=== PATIENT | male | born 1960 | race Caucasian/White ===

== ENCOUNTER → 2016-07-26 | Outpatient (CLI) | payer BC ==
[2016-07-26 13:43] LABS: Blood Urea Nitrogen 14 mg/dL (9-20); Non-African American GFR(MDRD) >60 (>60 ml/min/1.73 sqM)
== END | disposition home or self-care (01) ==
LOC: LABWHC1 13:09
PROVIDERS: ATTEND Psychiatry & Neurology Neurology
DX: M54.12 Radiculopathy, cervical region (principal)
CPT/HCPCS: 36415; 82565; 84520

== ENCOUNTER → 2016-07-31 | Outpatient (CLI) | payer BC ==
--- NOTE | 2016-07-31 15:59 | XR ---
EXAMINATION TYPE: XR orbit detect foreign body DATE OF EXAM: 07/31/2016 3:37 PM COMPARISON: NONE HISTORY: foreign body penetrating wound of bilateral orbits H05.53 TECHNIQUE: 3 views of the orbits are submitted. FINDINGS: There is no evidence for radiopaque foreign body. Paranasal sinuses are clear. IMPRESSION: The patient is cleared for MRI.
== END | disposition home or self-care (01) ==
LOC: RADXRMAIN 15:11
PROVIDERS: ATTEND Psychiatry & Neurology Neurology
DX: H05.53 Retained (old) foreign body following penetrating wound of bilateral orbits (principal)
CPT/HCPCS: 70030

== ENCOUNTER → 2016-08-01 | Outpatient (CLI) | payer BC ==
--- NOTE | 2016-08-02 08:13 | MR ---
EXAMINATION TYPE: MR cervical spine wo/w con DATE OF EXAM: 08/01/2016 6:33 PM COMPARISON: NONE HISTORY: picky feeling in both arms with numbness TECHNIQUE: Multiplanar, multisequence images of the cervical spine were acquired utilizing 20 mL intravenous Mul tiHance gadolinium contrast. Diffusion weighted imaging was performed. C2-C3: Mild facet arthropathy. No canal stenosis or disc herniation. Neural foramina patent C3-C4: Small focal central disc bulge. Mild facet arthropathy. No canal stenosis. Mild left foraminal encroachment with mild left-sided uncovertebral joint hypertrophy. C4-C5: Suggestion of annular tear and very mild central disc bulge. No canal stenosis or foraminal en croachment. C5-C6: Moderate-sized right paracentral and lateral disc herniation. There is compression of the spin al cord anteriorly are to the right. Moderate right-sided foraminal encroachment. C6-C7: Focal small central disc herniation with no contact of the spinal cord. Mild effacement of the lin sac. No foraminal encroachment. C7-T1: No evidence for degenerative disc disease. No disc bulge/herniation or protrusion. No Canal stenosis. Foramina are patent bilaterally. Cervical segments are intact. There is normal alignment. Cervical spinal cord is of normal signal. Craniovertebral junction relationships are within normal limits. No abnormal enhancement. IMPRESSION: 1. Moderate-sized right paracentral disc herniation extending laterally to the right with moderate ri ght-sided foraminal encroachment. There is anterior spinal cord compression on the right. 2. Focal small central disc herniation C6-C7 with mild effacement of thecal sac. No spinal cord conta ct or foraminal encroachment. 3. Remaining levels demonstrate multilevel disc bulging with no canal stenosis.
== END | disposition home or self-care (01) ==
LOC: RADMRIMAIN 17:29
PROVIDERS: ATTEND Psychiatry & Neurology Neurology
DX: M50.11 Cervical disc disorder with radiculopathy, high cervical region (principal)
CPT/HCPCS: 72156; A9577

== ENCOUNTER 2016-10-03 06:36 | Emergency (ER) | payer BC ==
[2016-10-03] MEDS ORDERED: methylPREDNISolone SOD SUCCI 125 MG/2 ML VIAL IV STA (06:43)
[2016-10-03] MEDS ORDERED: SODIUM CHLORIDE 0.9% 1,000 ML IV STA (06:43)
[2016-10-03] MEDS ORDERED: diphenhydrAMINE 50 MG/ML 1 ML VIAL IVP STA (06:43)
[2016-10-03] MEDS ORDERED: FAMOTIDINE 20 MG/2 ML VIAL IV STA ×2 (06:43→07:40)
--- NOTE | 2016-10-03 06:44 | ED ---
General Adult HPI - General Source: RN notes reviewed, old records reviewed <Champ Romo - Last Filed: 10/03/16 06:43> <Benito Hogan - Last Filed: 10/03/16 08:20> - General Stated complaint: allergic reaction Time Seen by Provider: 10/03/16 06:43 - History of Present Illness Initial comments: This is a 56-year-old male here for evaluation of ALLERGIC reaction. Patient has no prior history of similar ALLERGIC reaction. Does have medication ALLERGY to penicillins, fidgeted Bactrim last night, states since then he has been having some rash itching and hives. He will, scratchy throat and will symptoms of shortness of breath today. Patient does not feel weak or dizzy is not feeling is not [place] (Champ Romo) - Related Data Home Medications Medication Instructions Recorded Confirmed Multivitamins, Thera [Multivitamin] 1 tab PO DAILY 08/15/15 10/03/16 Mv-Min/Vit C/Glu/Rebekah HCl/Hc124 1 tab PO QAM 08/15/15 10/03/16 [Airborne Tablet Chewable] Cyclobenzaprine [Flexeril] 10 mg PO TID PRN 10/03/16 10/03/16 Hydrochlorothiazide [Hydrodiuril] 12.5 mg PO DAILY 10/03/16 10/03/16 Previous Rx's Medication Instructions Recorded Azithromycin [Zithromax Z-pack] 250 mg PO DIRECTED #6 tab 10/03/16 predniSONE 20 mg PO BID #10 tab 10/03/16 Allergies Allergy/AdvReac Type Severity Reaction Status Date / Time meperidine HCl [From Demerol] Allergy Intermediate Rash/Hives Verified 10/03/16 06:46 Penicillins Allergy Intermediate Rash/Hives Verified 10/03/16 06:46 Sulfa (Sulfonamide Allergy Rash/Hives Verified 10/03/16 06:48 Antibiotics) sulfamethoxazole Allergy Rash/Hives Verified 10/03/16 06:47 [From Bactrim] trimethoprim [From Bactrim] Allergy Rash/Hives Verified 10/03/16 06:47 Review of Systems ROS Other: All systems not noted in ROS Statement are negative. <Champ Romo - Last Filed: 10/03/16 06:43> ROS Other: All systems not noted in ROS Statement are negative. <Benito Hogan - Last Filed: 10/03/16 08:20> ROS Statement: Those systems with pertinent positive or pertinent negative responses have been documented in the HPI. Past Medical History Additional Past Medical History / Comment(s): approx 2009 clean heart cath, vertigo History of Any Multi-Drug Resistant Organisms: None Reported Past Surgical History: Adenoidectomy, Appendectomy, Cholecystectomy, Heart Catheterization, Orthopedic Surgery, Tonsillectomy Additional Past Surgical History / Comment(s): right shoulder Past Anesthesia/Blood Transfusion Reactions: No Reported Reaction Past Psychological History: No Psychological Hx Reported Smoking Status: Former smoker Past Alcohol Use History: Rare Additional Past Alcohol Use History / Comment(s): started 1976 stopped07/17/2015/2 ppd Past Drug Use History: None Reported - Past Family History Mother Family Medical History: Coronary Artery Disease (CAD), Diabetes Mellitus Father Family Medical History: Coronary Artery Disease (CAD) Additional Family Medical History / Comment(s): "lower aorta bust" <Champ Romo - Last Filed: 10/03/16 06:43> General Exam General appearance: alert, in no apparent distress Head exam: Present: atraumatic, normocephalic, normal inspection Eye exam: Present: normal appearance, PERRL, EOMI. Absent: scleral icterus, conjunctival injection, periorbital swelling ENT exam: Present: normal exam, mucous membranes moist Neck exam: Present: normal inspection. Absent: tenderness, meningismus, lymphadenopathy Respiratory exam: Present: normal lung sounds bilaterally. Absent: respiratory distress, wheezes, rales, rhonchi, stridor Cardiovascular Exam: Present: regular rate, normal rhythm, normal heart sounds. Absent: systolic murmur, diastolic murmur, rubs, gallop, clicks GI/Abdominal exam: Present: soft, normal bowel sounds. Absent: distended, tenderness, guarding, rebound, rigid Extremities exam: Present: normal inspection, full ROM, normal capillary refill. Absent: tenderness, pedal edema, joint swelling, calf tenderness Back exam: Present: normal inspection Neurological exam: Present: alert, oriented X3, CN II-XII intact Psychiatric exam: Present: normal affect, normal mood Skin exam: Present: warm, dry, intact, normal color. Absent: rash <Champ Romo - Last Filed: 10/03/16 06:43> Medical Decision Making <Champ Romo - Last Filed: 10/03/16 06:43> <Benito Hogan - Last Filed: 10/03/16 08:20> - Medical Decision Making I did reevaluate patient several occasions he is feeling improved he still has some rash and blotchiness but the burning has resolved. The patient is in satisfactory condition for discharge this time he'll be discharged on appropriate medications he does have pets at home he will get some Benadryl be placed also on prednisone for a short course he will be switched to Zithromax for an antibiotic. He is a follow-up with his doctor as indicated and return when necessary (Benito Hogan) Disposition <Champ Romo - Last Filed: 10/03/16 06:43> <Benito Hogan - Last Filed: 10/03/16 08:20> Clinical Impression: Allergic reaction, Adverse reaction to drug Disposition: HOME SELF-CARE Condition: Good Instructions: Allergies (ED), Adverse Drug Reaction (ED) Additional Instructions: [id number] Benadryl 25 mg every 6 hours when necessary, Pepcid 20 mg twice a day 5 days, cool compresses, avoid heat Prescriptions: Azithromycin [Zithromax Z-pack] 250 mg PO DIRECTED #6 tab predniSONE 20 mg PO BID #10 tab
[2016-10-03 07:35] VITALS: RESP 16
[2016-10-03 08:29] VITALS: BP 170/92; PULSE 78; TEMP 97.8
== END 2016-10-03 08:30 | disposition home or self-care (01) ==
LOC: EC 06:36
DX: L27.0 Generalized skin eruption due to drugs and medicaments taken internally (principal); T37.0X5A Adverse effect of sulfonamides, initial encounter; Z88.0 Allergy status to penicillin; Z88.2 Allergy status to sulfonamides; Z88.5 Allergy status to narcotic agent; Z87.891 Personal history of nicotine dependence; Z79.899 Other long term (current) drug therapy
CPT/HCPCS: 99283; 96374; 96375 ×2; 96376; 96361; J1200; J2930

== ENCOUNTER 2017-07-03 19:31 | Emergency (ER) | payer BC ==
[2017-07-03 19:37] VITALS: BP 167/101; PULSE 103; RESP 18; TEMP 97.8
--- NOTE | 2017-07-03 20:41 | ED ---
Wound/Laceration HPI - General Chief Complaint: Wound/Laceration Stated Complaint: finger lac Time Seen by Provider: 07/03/17 19:48 Source: patient, RN notes reviewed Mode of arrival: ambulatory Limitations: no limitations - History of Present Illness Initial Comments: This is a 56-year-old male who presents to the emergency department with chief complaint of finger laceration. Patient states that at approximately half an hour prior to arrival he lacerated his left index finger on a hunting knife. He states he reached into his hunting bag and when he pulled his hand out he realized he had cut his finger on the knife. Patient states that the laceration was flap-like and that he could not get the bleeding to stop so he presented to the emergency department to receive sutures. Patient states he was made up-to-date with his tetanus vaccination approximately 3 weeks ago at his primary care's office. Denies any other injuries. Denies any concerns for foreign body. Denies fever, chills, chest pain, shortness of breath, abdominal pain, nausea or vomiting, numbness or tingling, headache or vision changes. - Related Data Home Medications Medication Instructions Recorded Confirmed Multivitamins, Thera [Multivitamin] 1 tab PO DAILY 08/15/15 10/03/16 Mv-Min/Vit C/Glu/Rebekah HCl/Hc124 1 tab PO QAM 08/15/15 10/03/16 [Airborne Tablet Chewable] Cyclobenzaprine [Flexeril] 10 mg PO TID PRN 10/03/16 10/03/16 Hydrochlorothiazide [Hydrodiuril] 12.5 mg PO DAILY 10/03/16 10/03/16 Previous Rx's Medication Instructions Recorded Azithromycin [Zithromax Z-pack] 250 mg PO DIRECTED #6 tab 10/03/16 predniSONE 20 mg PO BID #10 tab 10/03/16 Cephalexin [Keflex] 500 mg PO Q12HR #20 cap 07/03/17 Allergies Allergy/AdvReac Type Severity Reaction Status Date / Time meperidine HCl [From Demerol] Allergy Intermediate Rash/Hives Verified 07/03/17 19:36 Penicillins Allergy Intermediate Rash/Hives Verified 07/03/17 19:36 Sulfa (Sulfonamide Allergy Rash/Hives Verified 07/03/17 19:36 Antibiotics) sulfamethoxazole Allergy Rash/Hives Verified 07/03/17 19:36 [From Bactrim] trimethoprim [From Bactrim] Allergy Rash/Hives Verified 07/03/17 19:36 Review of Systems ROS Statement: Those systems with pertinent positive or pertinent negative responses have been documented in the HPI. ROS Other: All systems not noted in ROS Statement are negative. Past Medical History Additional Past Medical History / Comment(s): approx 2009 clean heart cath, vertigo History of Any Multi-Drug Resistant Organisms: None Reported Past Surgical History: Adenoidectomy, Appendectomy, Cholecystectomy, Heart Catheterization, Orthopedic Surgery, Tonsillectomy Additional Past Surgical History / Comment(s): right shoulder Past Anesthesia/Blood Transfusion Reactions: No Reported Reaction Past Psychological History: No Psychological Hx Reported Smoking Status: Former smoker Past Alcohol Use History: Rare Past Drug Use History: None Reported - Past Family History Mother Family Medical History: Coronary Artery Disease (CAD), Diabetes Mellitus Father Family Medical History: Coronary Artery Disease (CAD) Additional Family Medical History / Comment(s): "lower aorta bust" General Exam - General Exam Comments Initial Comments: General: Awake and alert, well-developed; in no apparent distress. HEENT: Head atraumatic, normocephalic. Pupils are equal, round and reactive to light. Extraocular movements intact. Neck: Supple. Normal ROM. Cardiovascular: Regular rate and rhythm. No murmurs, rubs or gallops. Chest symmetrical. Respiratory: Lungs clear to auscultation bilaterally. No wheezes, rales or rhonchi. Normal respiratory effort with no use of accessory muscles. Musculoskeletal: Normal active range of motion of left index finger. Sensation is intact. Radial pulses are 2+ equal and palpable bilaterally. Skin: [place], warm and dry. There is an approximately 2.0 cm flap-like laceration at distal left index finger. Neurological: Alert and oriented x3. CN II-XII grossly intact. Speech is fluent and answers are appropriate. No focal neuro deficits. Psychiatric: Normal mood and affect. No overt signs of depression or anxiety noted. Limitations: no limitations Course Vital Signs 07/03/17 19:34 Temperature 97.8 F Pulse Rate 103 H Respiratory 18 Rate Blood Pressure 167/101 O2 Sat by Pulse 98 Oximetry Procedures - Laceration Laceration #1 Consent Obtained: verbal consent Indication: laceration Site: hand (distal left index finger) Size (cm): 2 Description: flap Depth: simple, single layer Anesthetic Used: lidocaine 1% Anesthesia Technique: nerve block Amount (mls): 2 Pre-repair: wound explored, irrigated extensively, deep structures intact Type of Sutures: nylon Size of Sutures: 5-0 Number of Sutures: 5 Technique: simple, interrupted Patient Tolerated Procedure: well, no complications Medical Decision Making - Medical Decision Making This is a 56-year-old male who presents to the emergency department for evaluation of a left index finger laceration. The wound was extensively irrigated and explored. No evidence for foreign body. 5 sutures were placed and patient tolerated well without complication. He is neurovascularly intact and has normal range of motion of the digit. Patient will be discharged home with recommendation to have sutures removed in 10-14 days. He will be provided a prescription for Keflex. Patient is in agreement and voices understanding. All questions were answered. Disposition Clinical Impression: Finger laceration Disposition: HOME SELF-CARE Condition: Good Instructions: Finger Laceration (ED) Additional Instructions: Please have sutures removed in 10-14 days. Please take medications as prescribed. Please follow up with primary care provider within 1-2 days. Return to emergency department if symptoms should worsen or any concerns arise. Prescriptions: Cephalexin [Keflex] 500 mg PO Q12HR #20 cap Referrals: Edison Mosqueda MD [Primary Care Provider] - 1-2 days Time of Disposition: 20:41
== END 2017-07-03 20:44 | disposition home or self-care (01) ==
LOC: EC 19:31
DX: S61.211A Laceration without foreign body of left index finger without damage to nail, initial encounter (principal); Z87.891 Personal history of nicotine dependence; Z79.899 Other long term (current) drug therapy; Z88.0 Allergy status to penicillin; Z88.1 Allergy status to other antibiotic agents; Z88.2 Allergy status to sulfonamides; Z88.5 Allergy status to narcotic agent; Z88.8 Allergy status to other drugs, medicaments and biological substances; W26.0XXA Contact with knife, initial encounter; Y93.89 Activity, other specified
CPT/HCPCS: 12001; 99282

== ENCOUNTER → 2020-07-17 | Outpatient (CLI) | payer BC ==
[2020-07-17 08:57] LABS: Basophils % (A) 1 %; Eosinophils # (A) 0.1 k/uL (0-0.7); Eosinophils % (A) 1 %; HCT 50.3 % (39.0-53.0); HGB 17.3 gm/dL (13.0-17.5); Lymphocytes # (A) 1.9 k/uL (1.0-4.8); Lymphocytes % (A) 26 %; MCH 32.7 pg (25.0-35.0); MCHC 34.5 g/dL (31.0-37.0); MCV 94.8 fL (80.0-100.0); Mean Platelet Volume 6.6; Monocytes # (A) 0.6 k/uL (0-1.0); Monocytes % (A) 8 %; Neutrophils # (A) 4.5 k/uL (1.3-7.7); Neutrophils % (A) 62 %; Platelet Count 244 k/uL (150-450); RBC 5.31 m/uL (4.30-5.90); RDW 12.2 % (11.5-15.5); WBC 7.2 k/uL (3.8-10.6)
[2020-07-17 09:05] LABS: Appearance,Urine Clear (Clear); Bilirubin,Urine Negative (Negative); Blood,Urine Negative (Negative); Color,Urine Yellow; Glucose,Urine (UA) Negative (Negative); Ketones,Urine Negative (Negative); Leukocyte Esterase,Urine Negative (Negative); Nitrite,Urine Negative (Negative); Protein,Urine Negative (Negative); Specific Gravity,Urine 1.014 (1.001-1.035); Urobilinogen,Urine <2.0 mg/dL (<2.0)
[2020-07-17 15:52] LABS: Albumin 4.7 g/dL (3.80-4.90); Albumin/Globulin Ratio 2.47 (1.60-3.17); Anion Gap 6.8 mmol/L (4.00-12.00); BUN/Creat Ratio 15.56 Ratio (12.00-20.00); Calcium 9.4 mg/dL (8.7-10.3); Carbon Dioxide 29.2 mmol/L (21.6-31.8); Chol/HDL Ratio 4.39; Globulin 1.9 g/dL (1.6-3.3); LDL Cholesterol,Calculated 110.8 mg/dL (0.0-131.0); Non-African American GFR(CKD) 93.2 (60.0-200.0); Potassium 4.9 mmol/L (3.5-5.5); Total Bilirubin 0.5 mg/dL (0.3-1.2); Total Protein 6.6 g/dL (6.2-8.2); VLDL Calculation 11.2 mg/dL (5.00-40.00)
[2020-07-17 16:42] LABS: PSA Annual Screen 0.3 ng/mL (0.0-4.0)
== END | disposition home or self-care (01) ==
LOC: LABWHC1 07:57
PROVIDERS: ATTEND Internal Medicine
DX: I10 Essential (primary) hypertension (principal); E55.9 Vitamin D deficiency, unspecified; Z12.5 Encounter for screening for malignant neoplasm of prostate
CPT/HCPCS: 80061; 80053; 85025; 81003; 82306; 36415; G0103

== ENCOUNTER 2021-01-17 21:09 | Emergency (ER) | payer BC ==
[2021-01-17 21:15] VITALS: TEMP 97.5
[2021-01-17] MEDS ORDERED: MORPHINE SULFATE 4 MG/ML SYRINGE IV STA (21:31)
--- NOTE | 2021-01-17 21:55 | ED ---
Abdominal Pain HPI - General Chief Complaint: Abdominal Pain Stated Complaint: cardiac symptoms Time Seen by Provider: 01/17/21 21:30 Source: patient Mode of arrival: ambulatory Limitations: no limitations - History of Present Illness Initial Comments: 's patient is a 60-year-old man who presents to be evaluated for epigastric abdominal pain. The patient notes that he was having some intermittent episodes going back a couple of weeks, but the symptoms became more constant for approximately 3 days now. The symptoms do radiate to the back. He has not noted worsening or relieving factors. It does feel like a an aching or pressure sensation. MD Complaint: abdominal pain -: days(s) Location: epigastric Radiation: back Migration to: no migration Severity: moderate Quality: aching, other (Pressure) Consistency: constant Improves With: nothing Worsens With: nothing - Related Data Home Medications Medication Instructions Recorded Confirmed Multivitamins, Thera [Multivitamin] 1 tab PO DAILY 08/15/15 10/03/16 Mv-Min/Vit C/Glu/Rebekah HCl/Hc124 1 tab PO QAM 08/15/15 10/03/16 [Airborne Tablet Chewable] Cyclobenzaprine [Flexeril] 10 mg PO TID PRN 10/03/16 10/03/16 hydroCHLOROthiazide [Hydrodiuril] 12.5 mg PO DAILY 10/03/16 10/03/16 Previous Rx's Medication Instructions Recorded Azithromycin [Zithromax Z-pack] 250 mg PO DIRECTED #6 tab 10/03/16 predniSONE [Deltasone] 20 mg PO BID #10 tab 10/03/16 Cephalexin [Keflex] 500 mg PO Q12HR #20 cap 07/03/17 Allergies Allergy/AdvReac Type Severity Reaction Status Date / Time meperidine HCl [From Demerol] Allergy Intermediate Rash/Hives Verified 07/03/17 19:36 Penicillins Allergy Intermediate Rash/Hives Verified 07/03/17 19:36 Sulfa (Sulfonamide Allergy Rash/Hives Verified 07/03/17 19:36 Antibiotics) sulfamethoxazole Allergy Rash/Hives Verified 07/03/17 19:36 [From Bactrim] trimethoprim [From Bactrim] Allergy Rash/Hives Verified 07/03/17 19:36 Review of Systems ROS Statement: Those systems with pertinent positive or pertinent negative responses have been documented in the HPI. ROS Other: All systems not noted in ROS Statement are negative. Constitutional: Denies: fever, chills Respiratory: Denies: cough, dyspnea Cardiovascular: Denies: chest pain, palpitations, orthopnea, edema, syncope Gastrointestinal: Reports: abdominal pain. Denies: nausea, vomiting, diarrhea, constipation, melena, hematochezia Genitourinary: Denies: dysuria, hematuria Musculoskeletal: Denies: back pain Skin: Denies: rash Neurological: Denies: headache, weakness, numbness Past Medical History Past Medical History: Hypertension Additional Past Medical History / Comment(s): approx 2009 clean heart cath, vertigo History of Any Multi-Drug Resistant Organisms: None Reported Past Surgical History: Adenoidectomy, Appendectomy, Cholecystectomy, Heart Catheterization, Hernia Repair, Orthopedic Surgery, Tonsillectomy Additional Past Surgical History / Comment(s): right shoulder Past Anesthesia/Blood Transfusion Reactions: No Reported Reaction Past Psychological History: No Psychological Hx Reported Smoking Status: Former smoker Past Alcohol Use History: Rare Past Drug Use History: None Reported - Past Family History Mother Family Medical History: Coronary Artery Disease (CAD), Diabetes Mellitus Father Family Medical History: Coronary Artery Disease (CAD) Additional Family Medical History / Comment(s): "lower aorta bust" General Exam Limitations: no limitations General appearance: alert, in no apparent distress Head exam: Present: atraumatic, normocephalic Eye exam: Present: normal appearance. Absent: scleral icterus, conjunctival injection Neck exam: Present: normal inspection Respiratory exam: Present: normal lung sounds bilaterally. Absent: respiratory distress, wheezes, rales, rhonchi, stridor Cardiovascular Exam: Present: regular rate, normal rhythm, normal heart sounds. Absent: systolic murmur, diastolic murmur, rubs, gallop GI/Abdominal exam: Present: soft. Absent: distended, tenderness, guarding, rebound, rigid, mass, pulsatile mass, hernia Extremities exam: Present: normal inspection, normal capillary refill. Absent: pedal edema, calf tenderness Back exam: Present: normal inspection. Absent: CVA tenderness (R), CVA tenderness (L) Neurological exam: Present: alert Skin exam: Present: warm, dry, intact, normal color. Absent: rash Course Vital Signs 01/17/21 01/17/21 01/17/21 21:10 21:43 22:30 Temperature 97.5 F L Pulse Rate 79 75 64 Respiratory 20 17 19 Rate Blood Pressure 158/89 155/97 144/85 O2 Sat by Pulse 95 93 L 93 L Oximetry 01/17/21 23:00 Temperature Pulse Rate 73 Respiratory 18 Rate Blood Pressure 139/89 O2 Sat by Pulse 96 Oximetry Medical Decision Making - Lab Data Result diagrams: 01/17/21 21:49 01/17/21 21:49 Lab Results 01/17/21 01/17/21 01/17/21 Range/Units 21:40 21:49 21:49 WBC 9.7 (3.8-10.6) k/uL RBC 4.75 (4.30-5.90) m/uL Hgb 15.5 (13.0-17.5) gm/dL Hct 44.4 (39.0-53.0) % MCV 93.4 (80.0-100.0) fL MCH 32.6 (25.0-35.0) pg MCHC 34.9 (31.0-37.0) g/dL RDW 12.3 (11.5-15.5) % Plt Count 243 (150-450) k/uL MPV 6.8 Neutrophils % 61 % Lymphocytes % 29 % Monocytes % 6 % Eosinophils % 2 % Basophils % 0 % Neutrophils # 5.9 (1.3-7.7) k/uL Lymphocytes # 2.8 (1.0-4.8) k/uL Monocytes # 0.6 (0-1.0) k/uL Eosinophils # 0.2 (0-0.7) k/uL Basophils # 0.0 (0-0.2) k/uL D-Dimer 0.21 (<0.60) mg/L FEU Sodium (137-145) mmol/L Potassium (3.5-5.1) mmol/L Chloride (98-107) mmol/L Carbon Dioxide (22-30) mmol/L Anion Gap mmol/L BUN (9-20) mg/dL Creatinine (0.66-1.25) mg/dL Est GFR (CKD-EPI)AfAm (>60 ml/min/1.73 sqM) Est GFR (CKD-EPI)NonAf (>60 ml/min/1.73 sqM) Glucose (74-99) mg/dL Plasma Lactic Acid Neeraj (0.7-2.0) mmol/L Calcium (8.4-10.2) mg/dL Total Bilirubin (0.2-1.3) mg/dL AST (17-59) U/L ALT (4-49) U/L Alkaline Phosphatase (38-126) U/L Troponin I (0.000-0.034) ng/mL Total Protein (6.3-8.2) g/dL Albumin (3.5-5.0) g/dL Amylase (30-110) U/L Lipase (23-300) U/L Urine Color Urine Appearance (Clear) Urine pH (5.0-8.0) Ur Specific [place] (1.001-1.035) Urine Protein (Negative) Urine Glucose (UA) (Negative) Urine Ketones (Negative) Urine Blood (Negative) Urine Nitrite (Negative) Urine Bilirubin (Negative) Urine Urobilinogen (<2.0) mg/dL Ur Leukocyte Esterase (Negative) Blood Type Blood Type Confirm O Positive Blood Type Recheck Bld Type Recheck Status Antibody Screen Spec Expiration Date 01/17/21 01/17/21 01/17/21 Range/Units 21:49 21:49 21:49 WBC (3.8-10.6) k/uL RBC (4.30-5.90) m/uL Hgb (13.0-17.5) gm/dL Hct (39.0-53.0) % MCV (80.0-100.0) fL MCH (25.0-35.0) pg MCHC (31.0-37.0) g/dL RDW (11.5-15.5) % Plt Count (150-450) k/uL MPV Neutrophils % % Lymphocytes % % Monocytes % % Eosinophils % % Basophils % % Neutrophils # (1.3-7.7) k/uL Lymphocytes # (1.0-4.8) k/uL Monocytes # (0-1.0) k/uL Eosinophils # (0-0.7) k/uL Basophils # (0-0.2) k/uL D-Dimer (<0.60) mg/L FEU Sodium 138 (137-145) mmol/L Potassium 3.9 (3.5-5.1) mmol/L Chloride 102 (98-107) mmol/L Carbon Dioxide 29 (22-30) mmol/L Anion Gap 7 mmol/L BUN 20 (9-20) mg/dL Creatinine 0.80 (0.66-1.25) mg/dL Est GFR (CKD-EPI)AfAm >90 (>60 ml/min/1.73 sqM) Est GFR (CKD-EPI)NonAf >90 (>60 ml/min/1.73 sqM) Glucose 103 H (74-99) mg/dL Plasma Lactic Acid Neeraj 0.9 (0.7-2.0) mmol/L Calcium 9.6 (8.4-10.2) mg/dL Total Bilirubin 0.4 (0.2-1.3) mg/dL AST 34 (17-59) U/L ALT 33 (4-49) U/L Alkaline Phosphatase 60 (38-126) U/L Troponin I (0.000-0.034) ng/mL Total Protein 6.7 (6.3-8.2) g/dL Albumin 4.2 (3.5-5.0) g/dL Amylase 92 (30-110) U/L Lipase 119 (23-300) U/L Urine Color Light Yellow Urine Appearance Clear (Clear) Urine pH 7.0 (5.0-8.0) Ur Specific [place] 1.005 (1.001-1.035) Urine Protein Negative (Negative) Urine Glucose (UA) Negative (Negative) Urine Ketones Negative (Negative) Urine Blood Negative (Negative) Urine Nitrite Negative (Negative) Urine Bilirubin Negative (Negative) Urine Urobilinogen <2.0 (<2.0) mg/dL Ur Leukocyte Esterase Negative (Negative) Blood Type Blood Type Confirm Blood Type Recheck Bld Type Recheck Status Antibody Screen Spec Expiration Date 01/17/21 01/17/21 Range/Units 21:51 22:10 WBC (3.8-10.6) k/uL RBC (4.30-5.90) m/uL Hgb (13.0-17.5) gm/dL Hct (39.0-53.0) % MCV (80.0-100.0) fL MCH (25.0-35.0) pg MCHC (31.0-37.0) g/dL RDW (11.5-15.5) % Plt Count (150-450) k/uL MPV Neutrophils % % Lymphocytes % % Monocytes % % Eosinophils % % Basophils % % Neutrophils # (1.3-7.7) k/uL Lymphocytes # (1.0-4.8) k/uL Monocytes # (0-1.0) k/uL Eosinophils # (0-0.7) k/uL Basophils # (0-0.2) k/uL D-Dimer (<0.60) mg/L FEU Sodium (137-145) mmol/L Potassium (3.5-5.1) mmol/L Chloride (98-107) mmol/L Carbon Dioxide (22-30) mmol/L Anion Gap mmol/L BUN (9-20) mg/dL Creatinine (0.66-1.25) mg/dL Est GFR (CKD-EPI)AfAm (>60 ml/min/1.73 sqM) Est GFR (CKD-EPI)NonAf (>60 ml/min/1.73 sqM) Glucose (74-99) mg/dL Plasma Lactic Acid Neeraj (0.7-2.0) mmol/L Calcium (8.4-10.2) mg/dL Total Bilirubin (0.2-1.3) mg/dL AST (17-59) U/L ALT (4-49) U/L Alkaline Phosphatase (38-126) U/L Troponin I <0.012 (0.000-0.034) ng/mL Total Protein (6.3-8.2) g/dL Albumin (3.5-5.0) g/dL Amylase (30-110) U/L Lipase (23-300) U/L Urine Color Urine Appearance (Clear) Urine pH (5.0-8.0) Ur Specific [place] (1.001-1.035) Urine Protein (Negative) Urine Glucose (UA) (Negative) Urine Ketones (Negative) Urine Blood (Negative) Urine Nitrite (Negative) Urine Bilirubin (Negative) Urine Urobilinogen (<2.0) mg/dL Ur Leukocyte Esterase (Negative) Blood Type O Positive Blood Type Confirm Blood Type Recheck No Previous Record Bld Type Recheck Status CABO Indicated Antibody Screen NEGATIVE Spec Expiration Date 01/20/20212350 - EKG Data -: EKG Interpreted by Oh EKG shows normal: sinus rhythm, axis (Normal), intervals (Normal), QRS complexes (Normal), ST-T waves (Normal) Rate: normal (Rate 68 bpm) Interpretation: normal EKG Disposition Clinical Impression: Abdominal pain Disposition: HOME SELF-CARE Condition: Good Instructions (If sedation given, give patient instructions): Abdominal Pain (ED) Is patient prescribed a controlled substance at d/c from ED?: No Referrals: Shannon Ospina MD [Primary Care Provider] - 1-2 days
[2021-01-17 22:03] LABS: Basophils % (A) 0 %; Eosinophils # (A) 0.2 k/uL (0-0.7); Eosinophils % (A) 2 %; HCT 44.4 % (39.0-53.0); HGB 15.5 gm/dL (13.0-17.5); Lymphocytes # (A) 2.8 k/uL (1.0-4.8); Lymphocytes % (A) 29 %; MCH 32.6 pg (25.0-35.0); MCHC 34.9 g/dL (31.0-37.0); MCV 93.4 fL (80.0-100.0); Mean Platelet Volume 6.8; Monocytes # (A) 0.6 k/uL (0-1.0); Monocytes % (A) 6 %; Neutrophils # (A) 5.9 k/uL (1.3-7.7); Neutrophils % (A) 61 %; Platelet Count 243 k/uL (150-450); RBC 4.75 m/uL (4.30-5.90); RDW 12.3 % (11.5-15.5); WBC 9.7 k/uL (3.8-10.6)
[2021-01-17 22:16] LABS: ALT 33 U/L (4-49); AST 34 U/L (17-59); African American GFR (CKD) >90 (>60 ml/min/1.73 sqM); Albumin 4.2 g/dL (3.5-5.0); Alkaline Phosphatase 60 U/L (38-126); Amylase 92 U/L (30-110); Anion Gap 7 mmol/L; Appearance,Urine Clear (Clear); Bilirubin,Urine Negative (Negative); Blood Urea Nitrogen 20 mg/dL (9-20); Blood,Urine Negative (Negative); Calcium 9.6 mg/dL (8.4-10.2); Carbon Dioxide 29 mmol/L (22-30); Chloride 102 mmol/L (98-107); Color,Urine Light Yellow; Glucose 103 mg/dL (74-99); Glucose,Urine (UA) Negative (Negative); Ketones,Urine Negative (Negative); Leukocyte Esterase,Urine Negative (Negative); Lipase 119 U/L (23-300); Nitrite,Urine Negative (Negative); Non-African American GFR(CKD) >90 (>60 ml/min/1.73 sqM); Potassium 3.9 mmol/L (3.5-5.1); Protein,Urine Negative (Negative); Sodium 138 mmol/L (137-145); Specific Gravity,Urine 1.005 (1.001-1.035); Total Bilirubin 0.4 mg/dL (0.2-1.3); Total Protein 6.7 g/dL (6.3-8.2); Urobilinogen,Urine <2.0 mg/dL (<2.0)
[2021-01-17 23:08] VITALS: RESP 18
--- NOTE | 2021-01-18 02:15 | CT ---
EXAMINATION TYPE: CT angio thor/abd pel aorta DATE OF EXAM: 01/18/2021 COMPARISON: None HISTORY: epigastric/back pain CT DLP: 1608.9 mGycm Automated exposure control for dose reduction was used. CONTRAST: Performed with IV Contrast, patient injected with 100ml mL of Isovue 370. Images obtained from the thoracic inlet to the floor the pelvis with IV contrast. There are 3-D post processed images. There is some pulmonary emphysema. There is mild subpleural interstitial density in the posterior bouchra g jurado. There is no pneumothorax. Heart is borderline enlarged. There are no hilar masses. There is no mediastinal adenopathy. Thoracic aorta is intact. The ascending aorta measures 3.8 cm. There is n o thoracic aortic aneurysm or dissection. There is no evidence of filling defect in the pulmonary art eries. There are no hilar masses. There is less liver spleen stomach pancreas appear intact. The bile ducts are not dilated. There is n o adrenal mass. Kidneys show satisfactory contrast opacification. There is no hydronephrosis. Ureters are not dilated. There is no retroperitoneal adenopathy. There is normal-appearing urinary bladder. There is mild prostate enlargement. Prostate measures 4.6 cm. There is bilateral fat-containing inguinal hernias. There is no free fluid in the pelvis. There a re numerous sigmoid diverticula. There is no diverticulitis. Appendix is not definitely seen. There i s no sign of thickened appendix. There is no mesenteric edema. There is no ascites or free air. There is no sign of a bowel obstruction. There is arterial flow in the abdominal aorta and the celiac and superior mesenteric arteries. There is arterial flow in the renal and iliac and femoral arteries. I see no evidence of arterial aneurysm or dissection. There is no evidence of hemodynamic stenosis. IMPRESSION: No angiographic abnormality. No evidence of arterial aneurysm or dissection. No evidence of pulmonary embolism. No evidence of hemodynamic stenosis. Sigmoid diverticulosis without diverticulitis. Borderline cardiomegaly.
[2021-01-18 02:50] VITALS: BP 121/71; PULSE 78
== END 2021-01-18 02:50 | disposition home or self-care (01) ==
LOC: EC 21:09
DX: R10.13 Epigastric pain (principal); I10 Essential (primary) hypertension; Z79.52 Long term (current) use of systemic steroids; Z79.899 Other long term (current) drug therapy; Z87.891 Personal history of nicotine dependence; Z82.49 Family history of ischemic heart disease and other diseases of the circulatory system; Z88.2 Allergy status to sulfonamides; Z88.0 Allergy status to penicillin; Z88.8 Allergy status to other drugs, medicaments and biological substances
CPT/HCPCS: 36415; 93005; 86900; 86901; 85379; 80053; 82150; 83605; 83690; 84484; 85025; 86850; 81003; 71275; 74174; 99284; Q9967

== ENCOUNTER → 2024-09-07 | Outpatient (CLI) | payer BC ==
--- NOTE | 2024-09-08 16:50 | MR ---
INDICATION: Patient age:Male; 64 years old; Reason for study: H90.A21 SNSRNRL HEAR LOSS, UNI, R EAR, WITH RSTRCD; MERGED WITH [facility]. COMPARISON: CT brain 10/15/2012 TECHNIQUE: Multi planar, multi sequence imaging was performed through the brain. Specialized thin s equences were obtained through the internal auditory canals. Pre-and post gadolinium sequences were obtained as well after administration of 10 cc of Gadobutrol of only the internal auditory canals. FINDINGS: The solomon-white junctions, ventricular system, basal cisterns appear unremarkable. Diffusi on-weighted imaging shows no evidence of restricted diffusion. Few foci of high T2/FLAIR signal inte nsity are seen within the left frontal lobe subcortical white matter white matter measuring up to 3 m m. The internal auditory canal sequences demonstrate no significant irregularity. The 7th cranial nerve s, 8 cranial nerves, and cerebellar pontine angles appear unremarkable. After the administration brigette olinium, no abnormal enhancement is seen within the internal auditory canals. IMPRESSION: 1. No evidence of intracranial mass nor acute/subacute CVA. 2. No evidence of internal auditory canal abnormality. 3. Minimal left frontal lobe white matter change likely related to chronic small vessel ischemic dise ase versus other etiologies such as demyelination or chronic migraine. [facility], , 09/08/2024 4:48 PM
== END | disposition home or self-care (01) ==
LOC: RADMRIMAIN 18:13
PROVIDERS: ATTEND Otolaryngology
DX: H90.A21 Sensorineural hearing loss, unilateral, right ear, with restricted hearing on the contralateral side (principal); R90.82 White matter disease, unspecified
CPT/HCPCS: 70553; A9585

== ENCOUNTER 2024-10-28 23:07 | Emergency (ER) | payer BC ==
[2024-10-28 23:12] VITALS: RESP 18
--- NOTE | 2024-10-28 23:31 | ED ---
Male Urogenital HPI - General Chief complaint: Urogenital Stated complaint: Unable to Urinate Time Seen by Provider: 10/28/24 23:31 Source: patient, family, RN notes reviewed, old records reviewed Mode of arrival: ambulatory Limitations: no limitations - History of Present Illness Initial comments: 64-year-old male presented the ER for evaluation of abdominal pain. Patient reports for the past week he has been experiencing a cramping/burning lower abdominal pain. He also was endorsing lower back discomfort, nausea and diarrhea. He denies any melena or hematochezia. Patient does admit to a history of diverticulitis and states this feels similar, follows up with GI, Dr. Sanchez. Patient was seen by PCP yesterday for current symptoms and started on ciprofloxacin, Flagyl, azithromycin and MiraLAX. CT of the pelvis was also ordered at that time and completed today showing acute uncomplicated focal diverticulitis of the proximal sigmoid colon. No free air or free fluid, abscess or bowel obstruction. Patient also reports over the past day he has noticed a decreased urine output. He states his stream appears weak and he is only dribbling urine. Denies dysuria or hematuria. He does not feel like he is having satisfactory urination. Denies a history of urinary retention, requiring Hyman catheter, or kidney stones. He does admit to a distant history of being on a prostate medication he is unsure which one. He has not followed up with a urologist in many years. He has not followed up with a urologist in many years. He denies any fevers, chills, vomiting, chest pain, shortness of breath, hematuria, dysuria or peripheral edema. - Related Data Home Medications Medication Instructions Recorded Confirmed Losartan Potassium [Cozaar] 25 mg PO DAILY 08/30/22 08/30/22 amLODIPine BESYLATE [Amlodipine 5 mg PO DAILY 08/30/22 08/30/22 Besylate] Previous Rx's Medication Instructions Recorded Ketorolac [Toradol] 10 mg PO Q8HR #15 tab 10/29/24 Ondansetron Odt [Zofran Odt] 4 mg PO Q8HR PRN #10 tab 10/29/24 Allergies Allergy/AdvReac Type Severity Reaction Status Date / Time meperidine HCl [From Demerol] Allergy Intermediate Rash/Hives Verified 08/30/22 13:23 Penicillins Allergy Intermediate Rash/Hives Verified 08/30/22 13:23 Sulfa (Sulfonamide Allergy Rash/Hives Verified 08/30/22 13:23 Antibiotics) sulfamethoxazole Allergy Rash/Hives Verified 08/30/22 13:23 [From Bactrim] trimethoprim [From Bactrim] Allergy Rash/Hives Verified 08/30/22 13:23 Review of Systems ROS Statement: Those systems with pertinent positive or pertinent negative responses have been documented in the HPI. ROS Other: All systems not noted in ROS Statement are negative. Past Medical History Past Medical History: Hypertension Additional Past Medical History / Comment(s): vertigo. HX BLOOD IN STOOL History of Any Multi-Drug Resistant Organisms: None Reported Past Surgical History: Adenoidectomy, Appendectomy, Cholecystectomy, Heart Catheterization, Hernia Repair, Orthopedic Surgery, Tonsillectomy Additional Past Surgical History / Comment(s): right shoulder SX, COLONOSCOPY Past Anesthesia/Blood Transfusion Reactions: No Reported Reaction Past Psychological History: No Psychological Hx Reported Smoking Status: Former smoker Past Alcohol Use History: Rare Past Drug Use History: None Reported - Past Family History Mother Family Medical History: Coronary Artery Disease (CAD), Diabetes Mellitus Father Family Medical History: Coronary Artery Disease (CAD) Additional Family Medical History / Comment(s): "lower aorta bust" General Exam Limitations: no limitations General appearance: alert, in no apparent distress Respiratory exam: Present: normal lung sounds bilaterally. Absent: respiratory distress, wheezes, rales, rhonchi, stridor Cardiovascular Exam: Present: regular rate, normal rhythm, normal heart sounds. Absent: systolic murmur, diastolic murmur, rubs, gallop, clicks GI/Abdominal exam: Present: soft, tenderness (suprapubic), normal bowel sounds Neurological exam: Present: alert, oriented X3, CN II-XII intact Skin exam: Present: warm, dry, intact, normal color. Absent: rash Course Vital Signs 10/28/24 10/29/24 23:09 01:12 Temperature 98.4 F 98.2 F Pulse Rate 87 78 Respiratory 18 18 Rate Blood Pressure 143/95 141/92 O2 Sat by Pulse 95 96 Oximetry Medical Decision Making - Medical Decision Making Was pt. sent in by a medical professional or institution (, PA, RETURNED GOODS INSPECTOR, urgent care, hospital, or group home...) When possible be specific @ -No Did you speak to anyone other than the patient for history (EMS, parent, family, police, friend...)? What history was obtained from this source @ -Family, at bedside, aiding in HPI past medical history. Did you review nursing and triage notes (agree or disagree)? Why? @ -I reviewed and agree with nursing and triage notes Were old charts reviewed (outside hosp., previous admission, EMS record, old EKG, old radiological studies, urgent care reports/EKG's, group home records)? Report findings @ -I reviewed outpatient CT abdomen pelvis scan completed on 10-28-2024 showing acute uncomplicated focal diverticulitis of proximal sigmoid colon. No free air, free fluid, abscess or bowel obstruction. Differential Diagnosis (chest pain, altered mental status, abdominal pain women, abdominal pain men, vaginal bleeding, weakness, fever, dyspnea, syncope, headache, dizziness, GI bleed, back pain, seizure, CVA, palpatations, mental health, musculoskeletal)? @ -Differential Abdominal Pain Men:Appendicitis, cholecystitis, diverticulosis, ischemic bowel, pancreatitis, hepatitis, UTI, gastroenteritis, AAA, incarcerated hernia, bowel obstruction, constipation, inflammatory bowel, hepatitis, peptic ulcer disease, splenic infarction, perforated viscus, testicular torsion, this is not meant to be an all-inclusive list EKG interpreted by me (3pts min.). @ -None done X-rays interpreted by me (1pt min.). @ -None done CT interpreted by me (1pt min.). @ -None done U/S interpreted by me (1pt. min.). @ -None done What testing was considered but not performed or refused? (CT, X-rays, U/S, labs)? Why? @ -None What meds were considered but not given or refused? Why? @ -None Did you discuss the management of the patient with other professionals (pro fessionals i.e. , PA, RETURNED GOODS INSPECTOR, lab, RT, psych nurse, psychiatric social worker supervisor, assembly adjuster, teacher, information technology officer, block and case maker)? Give summary @ -No Was smoking cessation discussed for >3mins.? @ -No Was critical care preformed (if so, how long)? @ -No Were there social determinants of health that impacted care today? How? (Homelessness, low income, unemployed, alcoholism, drug addiction, transportation, low edu. Level, literacy, decrease access to med. care, fdc, rehab)? @ -No Was there de-escalation of care discussed even if they declined (Discuss DNR or withdrawal of care, Hospice)? DNR status @ -No What co-morbidities impacted this encounter? (DM, HTN, Smoking, COPD, CAD, Cancer, CVA, ARF, Chemo, Hep., AIDS, mental health diagnosis, sleep apnea, morbid obesity)? @ -None Was patient admitted / discharged? Hospital course, mention meds given and route, prescriptions, significant lab abnormalities, going to OR and other pertinent info. @ -Discharge. 64-year-old male presented to the ER for evaluation of nausea, vomiting and diarrhea and decreased urination. Upon rooming, history and physical exam completed. Patient hypertensive 143/95 vitals otherwise acceptable limits. Patient is well-appearing in no signs of acute distress. Abdominal exam remarkable for suprapubic abdominal tenderness with normal bowel sounds. There is no rebound tenderness or guarding. Postvoid residual bladder scan max less than 50 mL, no Hyman catheter as postvoid residual less than [address] scan completed on 10-28-2024 was reviewed showing acute uncomplicated diverticulitis. There is no free air, abscess, fluid collection or obstruction noted. Given these findings, laboratory studies will be obtained along with symptomatic treatment. Laboratory studies significant for leuk ocytosis of 14.5 with a left shift likely due to diverticulitis. CMP with no significant electrolyte abnormality, acidosis or concerning signs of dehydration. Urinalysis unremarkable. Patient received symptomatic treatment in the ER with IV fluids and Toradol. Upon reevaluation, patient resting comfortably on stretcher no signs of acute distress. Results discussed with patient, all questions answered. Patient is reporting improvement of discomfort. I instructed him to continue taking ciprofloxacin and Flagyl as prescribed for diverticulitis. Patient will be discharged with a prescription of Zofran and Toradol for pain control. I also recommended he follow-up closely with urology for further evaluation of urinary symptoms, referral given. Decreased urinary output believed to be due to to decreased oral intake there is no signs of UTI, kidney injury on laboratory studies, or urinary retention. I also recommended he drink plenty of fluids. Patient discharged in stable condition with follow-up to PCP and urology. Strict return parameters discussed. Patient and patient's family, at bedside, verbally expressed understanding agree with care plan. Case discussed with ED attending, Dr. Avila. Undiagnosed new problem with uncertain prognosis? @ -No Drug Therapy requiring intensive monitoring for toxicity (Heparin, Nitro, Insulin, Cardizem)? @ -No Were any procedures done? @ -No Diagnosis/symptom? @ -Diverticulitis Acute, or Chronic, or Acute on Chronic? @ -Acute Uncomplicated (without systemic symptoms) or Complicated (systemic symptoms)? @ -Uncomplicated Side effects of treatment? @ -No Exacerbation, Progression, or Severe Exacerbation? @ -No Poses a threat to life or bodily function? How? (Chest pain, USA, ME, pneumonia, PE, COPD, DKA, ARF, appy, cholecystitis, CVA, Diverticulitis, Homicidal, Suicidal, threat to staff... and all critical care pts) @ -Low at this time, diverticulitis can lead to sepsis and/or bowel perforation which can be life-threatening. - Lab Data Result diagrams: 10/28/24 23:47 10/28/24 23:47 Lab Results 10/28/24 10/28/24 10/28/24 Range/Units 23:36 23:47 23:47 WBC 14.57 H (4.50-10.00) 10*3/uL RBC 4.70 (4.40-5.60) 10*6/uL Hgb 14.8 (13.0-17.0) g/dL Hct 42.0 (39.6-50.0) % MCV 89.4 (80.0-97.0) fL MCH 31.5 (27.0-32.0) pg MCHC 35.2 (32.0-37.0) g/dL Plt Count 288 (140-440) 10*3/uL MPV 8.7 L (9.5-12.2) fL Immature Gran % (Auto) 1.2 % Neutrophils % 80.3 % Lymphocytes % 9.9 % Monocytes % 7.1 % Eosinophils % 1.3 % Basophils % 0.2 % Immature Gran # 0.17 H (0.00-0.04) 10*3/uL Neutrophils # 11.70 H (1.80-7.70) 10*3/uL Lymphocytes # 1.44 (0.90-5.00) 10*3/uL Monocytes # 1.04 H (0.20-1.00) 10*3/uL Eosinophils # 0.19 (0.04-0.35) 10*3/uL Basophils # 0.03 (0.00-0.10) 10*3/uL Sodium 135 L (137-145) mmol/L Potassium 3.9 (3.5-5.1) mmol/L Chloride 99 (98-107) mmol/L Carbon Dioxide 23 (22-30) mmol/L Anion Gap 13 mmol/L BUN 13 (9-20) mg/dL Creatinine 0.73 (0.66-1.25) mg/dL Est GFR (CKD-EPI)AfAm >90 (>60 ml/min/1.73 sqM) Est GFR (CKD-EPI)NonAf >90 (>60 ml/min/1.73 sqM) Glucose 108 H (74-99) mg/dL Plasma Lactic Acid Neeraj (0.7-2.0) mmol/L Calcium 9.1 (8.4-10.2) mg/dL Total Bilirubin 0.5 (0.2-1.3) mg/dL AST 25 (17-59) U/L ALT 18 (4-49) U/L Alkaline Phosphatase 74 (38-126) U/L Total Protein 6.9 (6.3-8.2) g/dL Albumin 4.0 (3.5-5.0) g/dL Lipase 70 (23-300) U/L Urine Color Colorless Urine Appearance Clear (Clear) Urine pH 5.5 (5.0-8.0) Ur Specific Freeborn 1.016 (1.001-1.035) Urine Protein Negative (Negative) Urine Glucose (UA) Negative (Negative) Urine Ketones Negative (Negative) Urine Blood Negative (Negative) Urine Nitrite Negative (Negative) Urine Bilirubin Negative (Negative) Urine Urobilinogen <2.0 (<2.0) mg/dL Ur Leukocyte Esterase Negative (Negative) 10/28/24 Range/Units 23:47 WBC (4.50-10.00) 10*3/uL RBC (4.40-5.60) 10*6/uL Hgb (13.0-17.0) g/dL Hct (39.6-50.0) % MCV (80.0-97.0) fL MCH (27.0-32.0) pg MCHC (32.0-37.0) g/dL Plt Count (140-440) 10*3/uL MPV (9.5-12.2) fL Immature Gran % (Auto) % Neutrophils % % Lymphocytes % % Monocytes % % Eosinophils % % Basophils % % Immature Gran # (0.00-0.04) 10*3/uL Neutrophils # (1.80-7.70) 10*3/uL Lymphocytes # (0.90-5.00) 10*3/uL Monocytes # (0.20-1.00) 10*3/uL Eosinophils # (0.04-0.35) 10*3/uL Basophils # (0.00-0.10) 10*3/uL Sodium (137-145) mmol/L Potassium (3.5-5.1) mmol/L Chloride (98-107) mmol/L Carbon Dioxide (22-30) mmol/L Anion Gap mmol/L BUN (9-20) mg/dL Creatinine (0.66-1.25) mg/dL Est GFR (CKD-EPI)AfAm (>60 ml/min/1.73 sqM) Est GFR (CKD-EPI)NonAf (>60 ml/min/1.73 sqM) Glucose (74-99) mg/dL Plasma Lactic Acid Neeraj 0.6 L (0.7-2.0) mmol/L Calcium (8.4-10.2) mg/dL Total Bilirubin (0.2-1.3) mg/dL AST (17-59) U/L ALT (4-49) U/L Alkaline Phosphatase (38-126) U/L Total Protein (6.3-8.2) g/dL Albumin (3.5-5.0) g/dL Lipase (23-300) U/L Urine Color Urine Appearance (Clear) Urine pH (5.0-8.0) Ur Specific Freeborn (1.001-1.035) Urine Protein (Negative) Urine Glucose (UA) (Negative) Urine Ketones (Negative) Urine Blood (Negative) Urine Nitrite (Negative) Urine Bilirubin (Negative) Urine Urobilinogen (<2.0) mg/dL Ur Leukocyte Esterase (Negative) - Radiology Data Radiology results: report reviewed (10/28/[address]) Disposition Clinical Impression: Acute diverticulitis Disposition: HOME SELF-CARE Condition: Stable Instructions (If sedation given, give patient instructions): Diverticulitis (DC) Additional Instructions: Follow-up with PCP. Continue taking ciprofloxacin and Flagyl as prescribed. Take Toradol with food as prescribed for pain control. You may also take Zofran as scribed for nausea. Be sure to drink plenty of fluids I highly recommend you follow-up with urology for further evaluation as well. Return to the ER for any new or worsening concerns. Prescriptions: Ketorolac [Toradol] 10 mg PO Q8HR #15 tab Ondansetron Odt [Zofran Odt] 4 mg PO Q8HR PRN #10 tab PRN Reason: Nausea Is patient prescribed a controlled substance at d/c from ED?: No Referrals: Ceferino Gomez MD [Primary Care Provider] - 1-2 days Ankur Espinal MD [STAFF PHYSICIAN] - 1-2 days Time of Disposition: 01:06
[2024-10-28] MEDS: KETOROLAC 15 MG/ML 1 ML VIAL IVP STA (23:55)
[2024-10-28] MEDS: SODIUM CHLORIDE 0.9% 1,000 ML IV ONE (23:57)
[2024-10-29 00:06] LABS: Basophils # (A) 0.03 10*3/uL (0.00-0.10); Basophils % (A) 0.2 %; Eosinophils # (A) 0.19 10*3/uL (0.04-0.35); Eosinophils % (A) 1.3 %; HGB 14.8 g/dL (13.0-17.0); Lymphocytes # (A) 1.44 10*3/uL (0.90-5.00); Lymphocytes % (A) 9.9 %; MCH 31.5 pg (27.0-32.0); MCHC 35.2 g/dL (32.0-37.0); MCV 89.4 fL (80.0-97.0); Mean Platelet Volume 8.7 fL (9.5-12.2); Monocytes # (A) 1.04 10*3/uL (0.20-1.00); Monocytes % (A) 7.1 %; Neutrophils % (A) 80.3 %; Platelet Count 288 10*3/uL (140-440); RDW 12.2 % (11.5-14.5); WBC 14.57 10*3/uL (4.50-10.00)
[2024-10-29 00:16] LABS: ALT 18 U/L (4-49); AST 25 U/L (17-59); African American GFR (CKD) >90 (>60 ml/min/1.73 sqM); Alkaline Phosphatase 74 U/L (38-126); Anion Gap 13 mmol/L; Blood Urea Nitrogen 13 mg/dL (9-20); Calcium 9.1 mg/dL (8.4-10.2); Carbon Dioxide 23 mmol/L (22-30); Chloride 99 mmol/L (98-107); Glucose 108 mg/dL (74-99); Lipase 70 U/L (23-300); Non-African American GFR(CKD) >90 (>60 ml/min/1.73 sqM); Potassium 3.9 mmol/L (3.5-5.1); Sodium 135 mmol/L (137-145); Total Bilirubin 0.5 mg/dL (0.2-1.3); Total Protein 6.9 g/dL (6.3-8.2)
[2024-10-29 00:23] LABS: Appearance,Urine Clear (Clear); Color,Urine Colorless; PH, Urine 5.5 (5.0-8.0); Protein,Urine Negative (Negative); Specific Gravity,Urine 1.016 (1.001-1.035)
[2024-10-29 00:24] LABS: Bilirubin,Urine Negative (Negative); Blood,Urine Negative (Negative); Glucose,Urine (UA) Negative (Negative); Ketones,Urine Negative (Negative); Leukocyte Esterase,Urine Negative (Negative); Nitrite,Urine Negative (Negative); Urobilinogen,Urine <2.0 mg/dL (<2.0)
[2024-10-29 01:15] VITALS: BP 141/92; PULSE 78; TEMP 98.2
== END 2024-10-29 01:20 | disposition home or self-care (01) ==
LOC: EC 23:07
DX: K57.32 Diverticulitis of large intestine without perforation or abscess without bleeding (principal); Z88.0 Allergy status to penicillin; Z88.1 Allergy status to other antibiotic agents; Z88.2 Allergy status to sulfonamides; Z88.5 Allergy status to narcotic agent; Z87.891 Personal history of nicotine dependence
CPT/HCPCS: 36415; 80053; 83605; 83690; 85025; 81003; 99284; 96374; 96361; 51798; J1885

== ENCOUNTER → 2024-10-28 | Outpatient (CLI) | payer BC ==
--- NOTE | 2024-10-28 14:02 | CT ---
EXAMINATION TYPE: CT abdomen pelvis w con DATE OF EXAM: 10/28/2024 COMPARISON: None CLINICAL INDICATION: Male, 64 years old with history of R10.32 LEFT LOWER QUADRANT PAIN LABS; PHH, LL Q abd pain. TECHNIQUE: Performed with Oral Contrast and with IV Contrast, patient injected with 100 ml mL of Isovue 300. CT DLP: 1544.[address] CTDI: mGy Automated exposure control for dose reduction was used. FINDINGS: The lung bases are clear. The gallbladder is surgically absent. There is no biliary ductal dilatation. There is no focal mass or organomegaly involving the liver, pancreas, spleen or adrenal glands. There is no solid renal mass or hydronephrosis and there is homogeneous contrast enhancement of the r enal parenchyma. The caliber the abdominal aorta is normal is no retroperitoneal adenopathy or hemorr malka. The bowel loops are normal in caliber and no obstruction. There is localized abnormal increased densi ty in the pericolic fat in the region of the proximal sigmoid colon consistent with acute diverticuli tis. There is no abscess. There is no free intraperitoneal air or fluid.. No pelvic mass, free fluid, abscess or adenopathy. The osseous structures and soft tissues are intact. IMPRESSION: Acute uncomplicated focal diverticulitis of the proximal sigmoid colon. There is no free air, free fl uid, abscess or bowel obstruction. [facility], , 10/28/2024 2:00 PM
== END | disposition home or self-care (01) ==
LOC: RADCTMAIN 11:58
PROVIDERS: ATTEND Emergency Medicine
DX: K57.32 Diverticulitis of large intestine without perforation or abscess without bleeding (principal)
CPT/HCPCS: 74177; Q9967

== ENCOUNTER 2024-12-25 09:00 | Emergency (ER) | payer BC ==
--- NOTE | 2024-12-25 09:23 | ED ---
General Adult HPI - General Chief complaint: Abdominal Pain Stated complaint: abd pain Time Seen by Provider: 12/25/24 09:00 Source: patient, RN notes reviewed, old records reviewed Mode of arrival: ambulatory Limitations: no limitations - History of Present Illness Initial comments: This is a 64-year-old male who presents to the emergency department stating he has a history of diverticulitis. Patient has pain in the left lower abdomen as well as the suprapubic region. Patient states that started 2 days ago has gotten progressively worse. Patient states today he has been unable to keep anything down he believes he vomited up his high blood pressure medications. Patient states he has had a history of diverticulitis. Patient denies any fevers but states he did have the sweats at 1 point when the pain was a lot worse. Patient denies any back pain. Patient [place] any dysuria hematuria urinary frequency. - Related Data Home Medications Medication Instructions Recorded Confirmed Losartan Potassium [Cozaar] 25 mg PO DAILY 08/30/22 08/30/22 amLODIPine BESYLATE [Amlodipine 5 mg PO DAILY 08/30/22 08/30/22 Besylate] Previous Rx's Medication Instructions Recorded Ketorolac [Toradol] 10 mg PO Q8HR #15 tab 10/29/24 Ondansetron Odt [Zofran Odt] 4 mg PO Q8HR PRN #10 tab 10/29/24 Levofloxacin [Levaquin] 750 mg PO DAILY #10 tab 12/25/24 Allergies Allergy/AdvReac Type Severity Reaction Status Date / Time meperidine HCl [From Demerol] Allergy Intermediate Rash/Hives Verified 12/25/24 09:05 Penicillins Allergy Intermediate Rash/Hives Verified 12/25/24 09:05 Sulfa (Sulfonamide Allergy Rash/Hives Verified 12/25/24 09:05 Antibiotics) sulfamethoxazole Allergy Rash/Hives Verified 12/25/24 09:05 [From Bactrim] trimethoprim [From Bactrim] Allergy Rash/Hives Verified 12/25/24 09:05 Review of Systems ROS Statement: Those systems with pertinent positive or pertinent negative responses have been documented in the HPI. ROS Other: All systems not noted in ROS Statement are negative. Past Medical History Past Medical History: Hypertension Additional Past Medical History / Comment(s): vertigo. HX BLOOD IN STOOL History of Any Multi-Drug Resistant Organisms: None Reported Past Surgical History: Adenoidectomy, Appendectomy, Cholecystectomy, Heart Catheterization, Hernia Repair, Orthopedic Surgery, Tonsillectomy Additional Past Surgical History / Comment(s): right shoulder SX, COLONOSCOPY Past Anesthesia/Blood Transfusion Reactions: No Reported Reaction Past Psychological History: No Psychological Hx Reported Smoking Status: Former smoker Past Alcohol Use History: Rare Past Drug Use History: None Reported - Past Family History Mother Family Medical History: Coronary Artery Disease (CAD), Diabetes Mellitus Father Family Medical History: Coronary Artery Disease (CAD) Additional Family Medical History / Comment(s): "lower aorta bust" General Exam - General Exam Comments Initial Comments: GENERAL: Patient is well-developed and well-nourished. Patient is nontoxic and well- hydrated and is in mild distress. ENT: Neck is soft and supple. No significant lymphadenopathy is noted. Oropharynx is clear. Moist mucous membranes. Neck has full range of motion without eliciting any pain. EYES: The sclera were anicteric and conjunctiva were pink and moist. Extraocular movements were intact and pupils were equal round and reactive to light. Eyelids were unremarkable. PULMONARY: Unlabored respirations. Good breath sounds bilaterally. No audible rales rhonchi or wheezing was noted. CARDIOVASCULAR: There is a regular rate and rhythm without any murmurs gallops or rubs. ABDOMEN: Has abdominal tenderness throughout the lower quadrants as well as the suprapubic region SKIN: Skin is clear with no lesions or rashes and otherwise unremarkable. NEUROLOGIC: Patient is alert and oriented x3. Cranial nerves II through XII are grossly intact. Motor and sensory are also intact. Normal speech, volume and content. Symmetrical smile. MUSCULOSKELETAL: Normal extremities with adequate strength and full range of motion. No lower extremity swelling or edema. No calf tenderness. LYMPHATICS: No significant lymphadenopathy is noted PSYCHIATRIC: Normal psychiatric evaluation. Limitations: no limitations Course Vital Signs 12/25/24 12/25/24 12/25/24 09:01 10:16 11:18 Temperature 97.8 F Pulse Rate 79 74 Respiratory 18 20 Rate Blood Pressure 156/96 148/87 O2 Sat by Pulse 96 94 L 98 Oximetry Medical Decision Making - Medical Decision Making Was pt. sent in by a medical professional or institution (, PA, FERRYBOAT HELPER, urgent care, hospital, or long-term...) When possible be specific @ -No Did you speak to anyone other than the patient for history (EMS, parent, family, police, friend...)? What history was obtained from this source @ -No Did you review nursing and triage notes (agree or disagree)? Why? @ -I reviewed and agree with nursing and triage notes Were old charts reviewed (outside hosp., previous admission, EMS record, old EKG, old radiological studies, urgent care reports/EKG's, long-term records)? Report findings @ -No old charts were reviewed Differential Diagnosis? @ -Differential Abdominal Pain Men: Appendicitis, cholecystitis, diverticulosis, ischemic bowel, pancreatitis, hepatitis, UTI, gastroenteritis, AAA, incarcerated hernia, bowel obstruction, constipation, inflammatory bowel, hepatitis, peptic ulcer disease, splenic infarction, perforated viscus, testicular torsion, this is not meant to be an all-inclusive list EKG interpreted by me (3pts min.). @ -As above X-rays interpreted by me (1pt min.). @ -None done CT interpreted by me (1pt min.). @ -CT scan of the abdomen shows acute diverticulitis without free air or abscess formation U/S interpreted by me (1pt. min.). @ -None done What testing was considered but not performed or refused? (CT, X-rays, U/S, labs)? Why? @ -None What meds were considered but not given or refused? Why? @ -None Did you discuss the management of the patient with other professionals (professionals i.e. , PA, FERRYBOAT HELPER, lab, RT, psych nurse, social media specialist, crm manager, teacher, assault amphibious vehicle officer, case finisher)? Give summary @ -No Was smoking cessation discussed for >3mins.? @ -No Was critical care preformed (if so, how long)? @ -No Were there social determinants of health that impacted care today? How? (Homelessness, low income, unemployed, alcoholism, drug addiction, transportation, low edu. Level, literacy, decrease access to med. care, fpc, rehab)? @ -No Was there de-escalation of care discussed even if they declined (Discuss DNR or withdrawal of care, Hospice)? DNR status @ -No What co-morbidities impacted this encounter? (DM, HTN, Smoking, COPD, CAD, Cancer, CVA, ARF, Chemo, Hep., AIDS, mental health diagnosis, sleep apnea, morbid obesity)? @ -None Was patient admitted / discharged? Hospital course, mention meds given and route, prescriptions, significant lab abnormalities, going to OR and other pertinent info. @ -Patient received Dilaudid and Zofran and patient was feeling considerably better. Patient also received Toradol. And patient also received Levaquin. I offered the patient admission he preferred to try going home and taking antibiotic at home. Undiagnosed new problem with uncertain prognosis? @ -No Drug Therapy requiring intensive monitoring for toxicity (Heparin, Nitro, Insulin, Cardizem)? @ -No Were any procedures done? @ -No Diagnosis/symptom? @ -Acute diverticulitis Acute, or Chronic, or Acute on Chronic? @ -Acute Uncomplicated (without systemic symptoms) or Complicated (systemic symptoms)? @ -Complicated Side effects of treatment? @ -No Exacerbation, Progression, or Severe Exacerbation? @ -No Poses a threat to life or bodily function? How? (Chest pain, [place], [place], pneumonia, PE, COPD, DKA, ARF, appy, cholecystitis, CVA, Diverticulitis, Homicidal, Suicidal, threat to staff... and all critical care pts) @ -No - Lab Data Result diagrams: 12/25/24 09:35 12/25/24 09:35 Lab Results 12/25/24 12/25/24 12/25/24 Range/Units 09:35 09:35 09:35 WBC 18.94 H (4.50-10.00) 10*3/uL RBC 4.90 (4.40-5.60) 10*6/uL Hgb 15.2 (13.0-17.0) g/dL Hct 43.7 (39.6-50.0) % MCV 89.2 (80.0-97.0) fL MCH 31.0 (27.0-32.0) pg MCHC 34.8 (32.0-37.0) g/dL Plt Count 272 (140-440) 10*3/uL MPV 8.5 L (9.5-12.2) fL Immature Gran % (Auto) 0.6 % Neutrophils % 88.9 % Lymphocytes % 4.9 % Monocytes % 5.3 % Eosinophils % 0.1 % Basophils % 0.2 % Immature Gran # 0.12 H (0.00-0.04) 10*3/uL Neutrophils # 16.85 H (1.80-7.70) 10*3/uL Lymphocytes # 0.92 (0.90-5.00) 10*3/uL Monocytes # 1.00 (0.20-1.00) 10*3/uL Eosinophils # 0.01 L (0.04-0.35) 10*3/uL Basophils # 0.04 (0.00-0.10) 10*3/uL Sodium 132 L (137-145) mmol/L Potassium 4.4 (3.5-5.1) mmol/L Chloride 101 (98-107) mmol/L Carbon Dioxide 19 L (22-30) mmol/L Anion Gap 12 mmol/L BUN 10 (9-20) mg/dL Creatinine 0.62 L (0.66-1.25) mg/dL Est GFR (CKD-EPI)AfAm >90 (>60 ml/min/1.73 sqM) Est GFR (CKD-EPI)NonAf >90 (>60 ml/min/1.73 sqM) Glucose 119 H (74-99) mg/dL Plasma Lactic Acid Neeraj 0.8 (0.7-2.0) mmol/L Calcium 9.0 (8.4-10.2) mg/dL Total Bilirubin 1.1 (0.2-1.3) mg/dL AST 28 (17-59) U/L ALT 15 (4-49) U/L Alkaline Phosphatase 73 (38-126) U/L Total Protein 7.3 (6.3-8.2) g/dL Albumin 4.2 (3.5-5.0) g/dL Amylase 72 (30-110) U/L Lipase 57 (23-300) U/L Urine Color Urine Appearance (Clear) Urine pH (5.0-8.0) Ur Specific Pearson (1.001-1.035) Urine Protein (Negative) Urine Glucose (UA) (Negative) Urine Ketones (Negative) Urine Blood (Negative) Urine Nitrite (Negative) Urine Bilirubin (Negative) Urine Urobilinogen (<2.0) mg/dL Ur Leukocyte Esterase (Negative) 12/25/24 Range/Units 10:26 WBC (4.50-10.00) 10*3/uL RBC (4.40-5.60) 10*6/uL Hgb (13.0-17.0) g/dL Hct (39.6-50.0) % MCV (80.0-97.0) fL MCH (27.0-32.0) pg MCHC (32.0-37.0) g/dL Plt Count (140-440) 10*3/uL MPV (9.5-12.2) fL Immature Gran % (Auto) % Neutrophils % % Lymphocytes % % Monocytes % % Eosinophils % % Basophils % % Immature Gran # (0.00-0.04) 10*3/uL Neutrophils # (1.80-7.70) 10*3/uL Lymphocytes # (0.90-5.00) 10*3/uL Monocytes # (0.20-1.00) 10*3/uL Eosinophils # (0.04-0.35) 10*3/uL Basophils # (0.00-0.10) 10*3/uL Sodium (137-145) mmol/L Potassium (3.5-5.1) mmol/L Chloride (98-107) mmol/L Carbon Dioxide (22-30) mmol/L Anion Gap mmol/L BUN (9-20) mg/dL Creatinine (0.66-1.25) mg/dL Est GFR (CKD-EPI)AfAm (>60 ml/min/1.73 sqM) Est GFR (CKD-EPI)NonAf (>60 ml/min/1.73 sqM) Glucose (74-99) mg/dL Plasma Lactic Acid Neeraj (0.7-2.0) mmol/L Calcium (8.4-10.2) mg/dL Total Bilirubin (0.2-1.3) mg/dL AST (17-59) U/L ALT (4-49) U/L Alkaline Phosphatase (38-126) U/L Total Protein (6.3-8.2) g/dL Albumin (3.5-5.0) g/dL Amylase (30-110) U/L Lipase (23-300) U/L Urine Color Yellow Urine Appearance Clear (Clear) Urine pH 6.5 (5.0-8.0) Ur Specific Pearson 1.021 (1.001-1.035) Urine Protein Negative (Negative) Urine Glucose (UA) Negative (Negative) Urine Ketones 1+ H (Negative) Urine Blood Negative (Negative) Urine Nitrite Negative (Negative) Urine Bilirubin Negative (Negative) Urine Urobilinogen <2.0 (<2.0) mg/dL Ur Leukocyte Esterase Negative (Negative) Disposition Clinical Impression: Diverticulitis Disposition: HOME SELF-CARE Condition: Good Instructions (If sedation given, give patient instructions): Diverticulitis (ED) Prescriptions: Levofloxacin [Levaquin] 750 mg PO DAILY #10 tab Is patient prescribed a controlled substance at d/c from ED?: No Referrals: Ceferino Gomez MD [Primary Care Provider] - 1-2 days Time of Disposition: 11:23
[2024-12-25 09:42] LABS: Basophils # (A) 0.04 10*3/uL (0.00-0.10); Basophils % (A) 0.2 %; Eosinophils # (A) 0.01 10*3/uL (0.04-0.35); Eosinophils % (A) 0.1 %; HCT 43.7 % (39.6-50.0); HGB 15.2 g/dL (13.0-17.0); Lymphocytes # (A) 0.92 10*3/uL (0.90-5.00); Lymphocytes % (A) 4.9 %; MCHC 34.8 g/dL (32.0-37.0); MCV 89.2 fL (80.0-97.0); Mean Platelet Volume 8.5 fL (9.5-12.2); Monocytes % (A) 5.3 %; Neutrophils # (A) 16.85 10*3/uL (1.80-7.70); Neutrophils % (A) 88.9 %; Platelet Count 272 10*3/uL (140-440); RDW 12.1 % (11.5-14.5); WBC 18.94 10*3/uL (4.50-10.00)
[2024-12-25 09:57] LABS: ALT 15 U/L (4-49); African American GFR (CKD) >90 (>60 ml/min/1.73 sqM); Albumin 4.2 g/dL (3.5-5.0); Amylase 72 U/L (30-110); Anion Gap 12 mmol/L; Blood Urea Nitrogen 10 mg/dL (9-20); Carbon Dioxide 19 mmol/L (22-30); Chloride 101 mmol/L (98-107); Glucose 119 mg/dL (74-99); Lipase 57 U/L (23-300); Non-African American GFR(CKD) >90 (>60 ml/min/1.73 sqM); Sodium 132 mmol/L (137-145); Total Bilirubin 1.1 mg/dL (0.2-1.3); Total Protein 7.3 g/dL (6.3-8.2)
[2024-12-25 10:01] LABS: AST 28 U/L (17-59); Alkaline Phosphatase 73 U/L (38-126); Potassium 4.4 mmol/L (3.5-5.1)
[2024-12-25 10:17] VITALS: RESP 20
[2024-12-25] MEDS: KETOROLAC 15 MG/ML 1 ML VIAL IVP STA (10:17)
[2024-12-25] MEDS: ONDANSETRON 4 MG/2 ML VIAL IVP STA (10:18)
[2024-12-25] MEDS: HYDROmorphone 0.5 MG/0.5 ML SYRINGE IVP STA (10:21)
[2024-12-25] MEDS: LACTATED RINGERS 1,000 ML IV ONE (10:23)
[2024-12-25 10:34] LABS: Appearance,Urine Clear (Clear); Bilirubin,Urine Negative (Negative); Blood,Urine Negative (Negative); Color,Urine Yellow; Glucose,Urine (UA) Negative (Negative); Ketones,Urine 1+ (Negative); Leukocyte Esterase,Urine Negative (Negative); Nitrite,Urine Negative (Negative); PH, Urine 6.5 (5.0-8.0); Protein,Urine Negative (Negative); Specific Gravity,Urine 1.021 (1.001-1.035); Urobilinogen,Urine <2.0 mg/dL (<2.0)
--- NOTE | 2024-12-25 11:04 | CT ---
EXAMINATION TYPE: CT abdomen pelvis w con DATE OF EXAM: 12/25/2024 COMPARISON: 10/28/2024 CLINICAL INDICATION: Male, 64 years old with history of abdominal pain; PHH, left lower abdominal/juan in pain. TECHNIQUE: Performed without Oral Contrast and with IV Contrast, patient injected with 100 ml mL of Isovue 300. CT DLP: 1409.[address] CTDI: mGy Automated exposure control for dose reduction was used. FINDINGS: The lung bases are clear. There is surgical absence of the gallbladder. There is no biliary ductal dilatation. There is no focal mass or organomegaly involving the liver, pancreas, spleen or adrenal glands. There is no solid renal mass or hydronephrosis and there is homogeneous contrast enhancement of the r enal parenchyma. The caliber the abdominal aorta is normal is no retroperitoneal adenopathy or hemorr malka. The bowel loops are normal in caliber and there is no evidence of dilatation or obstruction. There is no change in the phlegmon-like mass anterior to the abdominal aortic bifurcation and adjacent to the sigmoid colon consistent with acute diverticulitis. There is no discrete abscess. There is no free i ntraperitoneal air or fluid. There is mild to moderate diverticulitis of the descending and sigmoid c olon. No pelvic mass, free fluid, abscess or adenopathy. There is mild prostatic hypertrophy. The osseous structures are intact. There are small fat-containing bilateral inguinal hernias, right g reater than left. IMPRESSION: No change in what appears to be acute diverticulitis of the sigmoid colon without bowel obstruction, abscess, free air or free fluid. [facility], , 12/25/2024 11:02 AM
[2024-12-25] MEDS: ONDANSETRON 4 MG ODT STARTER PACK 2 TAB BTL PO STA (11:39)
[2024-12-25] MEDS: LEVOFLOXACIN 750 MG TAB PO STA (11:39)
[2024-12-25] MEDS: ACET/COD 300 MG/30 MG STARTER PACK 6 TAB BTL PO STA (11:40)
[2024-12-25 11:46] VITALS: BP 146/98; PULSE 87; TEMP 97.7
== END 2024-12-25 11:47 | disposition home or self-care (01) ==
LOC: EC 09:00
DX: K57.32 Diverticulitis of large intestine without perforation or abscess without bleeding (principal); Z88.0 Allergy status to penicillin; Z88.2 Allergy status to sulfonamides; Z88.1 Allergy status to other antibiotic agents; Z88.5 Allergy status to narcotic agent; Z87.891 Personal history of nicotine dependence
CPT/HCPCS: 36415; 80053; 82150; 83605; 83690; 85025; 81003; 74177; 99284; 96374; 96375 ×2; 96361; J2405; J1885; S0119; J1171; Q9967

== ENCOUNTER 2024-12-26 01:54 | Inpatient (IN) | payer BC ==
--- NOTE | 2024-12-26 02:09 | ED ---
Abdominal Pain HPI - General Chief Complaint: Abdominal Pain Stated Complaint: Abd Pain Time Seen by Provider: 12/26/24 01:57 Source: patient, RN notes reviewed, old records reviewed Mode of arrival: ambulatory Limitations: no limitations - History of Present Illness Initial Comments: This is a 64-year-old male to the ER for evaluation abdominal pain recent diagnosis diverticulitis, patient tried outpatient treatment with oral medications oral pain meds oral antibiotics without improvement. Patient unable to tolerate medication unable to tolerate pain MD Complaint: abdominal pain, other (Recheck abdominal pain diverticulitis) -: days(s) Location: RLQ Radiation: RLQ Migration to: epigastric, suprapubic Severity: severe Quality: stabbing, sharp Consistency: constant Improves With: nothing Worsens With: nothing Associated Symptoms: nausea, vomiting Treatments Prior to Arrival: NSAIDs, prescription analgesics - Related Data Home Medications Medication Instructions Recorded Confirmed Losartan Potassium [Cozaar] 25 mg PO DAILY 08/30/22 12/26/24 Balsalazide Disodium 2,250 mg PO BID 12/26/24 12/26/24 Dicyclomine [Bentyl] 10 mg PO TID 12/26/24 12/26/24 Famotidine [Pepcid] 20 mg PO BID-W/MEALS PRN 12/26/24 12/26/24 amLODIPine [Norvasc] 5 mg PO DAILY 12/26/24 12/26/24 Previous Rx's Medication Instructions Recorded Levofloxacin [Levaquin] 750 mg PO DAILY #10 tab 12/25/24 Allergies Allergy/AdvReac Type Severity Reaction Status Date / Time meperidine HCl [From Demerol] Allergy Intermediate Rash/Hives Verified 12/26/24 11:33 Penicillins Allergy Intermediate Rash/Hives Verified 12/26/24 11:33 Sulfa (Sulfonamide Allergy Rash/Hives Verified 12/26/24 11:33 Antibiotics) sulfamethoxazole Allergy Rash/Hives Verified 12/26/24 11:33 [From Bactrim] trimethoprim [From Bactrim] Allergy Rash/Hives Verified 12/26/24 11:33 Review of Systems ROS Statement: Those systems with pertinent positive or pertinent negative responses have been documented in the HPI. ROS Other: All systems not noted in ROS Statement are negative. Past Medical History Past Medical History: Hypertension Additional Past Medical History / Comment(s): vertigo, diverticultitis. HX BLOOD IN STOOL History of Any Multi-Drug Resistant Organisms: None Reported Past Surgical History: Adenoidectomy, Appendectomy, Cholecystectomy, Heart Catheterization, Hernia Repair, Orthopedic Surgery, Tonsillectomy Additional Past Surgical History / Comment(s): right shoulder SX, COLONOSCOPY Past Anesthesia/Blood Transfusion Reactions: No Reported Reaction Past Psychological History: No Psychological Hx Reported Smoking Status: Former smoker Past Alcohol Use History: Rare Past Drug Use History: None Reported - Past Family History Mother Family Medical History: Coronary Artery Disease (CAD), Diabetes Mellitus Father Family Medical History: Coronary Artery Disease (CAD) Additional Family Medical History / Comment(s): "lower aorta bust" General Exam Limitations: no limitations General appearance: alert, in no apparent distress Head exam: Present: atraumatic, normocephalic, normal inspection Eye exam: Present: normal appearance, PERRL, EOMI. Absent: scleral icterus, conjunctival injection, periorbital swelling ENT exam: Present: normal exam, mucous membranes moist Neck exam: Present: normal inspection. Absent: tenderness, meningismus, lymphadenopathy Respiratory exam: Present: normal lung sounds bilaterally. Absent: respiratory distress, wheezes, rales, rhonchi, stridor Cardiovascular Exam: Present: regular rate, normal rhythm, normal heart sounds. Absent: systolic murmur, diastolic murmur, rubs, gallop, clicks GI/Abdominal exam: Present: soft, normal bowel sounds. Absent: distended, tenderness, guarding, rebound, rigid Extremities exam: Present: normal inspection, full ROM, normal capillary refill. Absent: tenderness, pedal edema, joint swelling, calf tenderness Back exam: Present: normal inspection Neurological exam: Present: alert, oriented X3, CN II-XII intact Psychiatric exam: Present: normal affect, normal mood Skin exam: Present: warm, dry, intact, normal color. Absent: rash Course Vital Signs 12/26/24 12/26/24 12/26/24 01:56 02:56 04:46 Temperature 98.1 F Pulse Rate 93 94 96 Pulse Rate [ Mixing Plant Operator ] Respiratory 18 18 18 Rate Blood Pressure 156/88 141/79 154/90 Blood Pressure [Right Arm] O2 Sat by Pulse 95 94 L 95 Oximetry 12/26/24 12/26/24 12/26/24 07:02 15:00 19:10 Temperature 98.9 F Pulse Rate 91 90 Pulse Rate [ 90 Mixing Plant Operator ] Respiratory 18 16 19 Rate Blood Pressure 151/92 154/92 Blood Pressure 152/88 [Right Arm] O2 Sat by Pulse 96 96 95 Oximetry 12/26/24 12/26/24 12/27/24 20:35 23:10 01:23 Temperature Pulse Rate 86 90 89 Pulse Rate [ Mixing Plant Operator ] Respiratory 18 18 18 Rate Blood Pressure 150/82 147/61 155/94 Blood Pressure [Right Arm] O2 Sat by Pulse 96 96 96 Oximetry 12/27/24 05:35 Temperature 98.8 F Pulse Rate 86 Pulse Rate [ Mixing Plant Operator ] Respiratory 18 Rate Blood Pressure 162/92 Blood Pressure [Right Arm] O2 Sat by Pulse 93 L Oximetry - Reevaluation(s) Reevaluation #1: 12/26/24 02:43 Medical records reviewed 12/26/24 02:56 Prior ER visit and CT scan are reviewed Reevaluation #2: 12/26/24 02:56 Patient's pain is improving Reevaluation #3: Patient informed of results and questions answered Reevaluation #4: Was pt. sent in by a medical professional or institution (, PA, INTERVENTIONAL SALE CONSULTANT, urgent care, hospital, or long term...) When possible be specific @ -no Did you speak to anyone other than the patient for history (EMS, parent, family, police, friend...)? What history was obtained from this source @ -no Did you review nursing and triage notes (agree or disagree)? Why? @ -agree Are old charts reviewed (outside hosp., previous admission, EMS record, old EKG, old radiological studies, urgent care reports/EKG's, long term records)? Report findings @ -yes Differential Diagnosis (chest pain, altered mental status, abdominal pain women, abdominal pain men, vaginal bleeding, weakness, fever, dyspnea, syncope, headache, dizziness, GI bleed, back pain, seizure, CVA, palpatations, mental hea lth, musculoskeletal)? @ -prior EKG interpreted by me (3pts min.). @ -yes X-rays interpreted by me (1pt min.). @ -no CT interpreted by me (1pt min.). @ -no U/S interpreted by me (1pt. min.). @ -no What testing was considered but not performed or refused? (CT, X-rays, U/S, labs)? Why? @ -none What meds were considered but not given or refused? Why? @ -none Did you discuss the management of the patient with other professionals (professionals i.e. , PA, INTERVENTIONAL SALE CONSULTANT, lab, RT, psych nurse, social services specialist, spinner frame, teacher, community arts officer, case work aide)? Give summary @ -no Was smoking cessation discussed for >3mins.? @ -no Was critical care preformed (if so, how long)? @ -no Were there social determinants of health that impacted care today? How? (Homelessness, low income, unemployed, alcoholism, drug addiction, transportation, low edu. Level, literacy, decrease access to med. care, senior care, re hab)? @ -none Was there de-escalation of care discussed even if they declined (Discuss DNR or withdrawal of care, Hospice)? DNR status @ -no What co-morbidities impacted this encounter? (DM, HTN, Smoking, COPD, CAD, Cancer, CVA, ARF, Chemo, Hep., AIDS, mental health diagnosis, sleep apnea, morbid obesity)? @ -none Was patient admitted / discharged? Hospital course, mention meds given and route, prescriptions, significant lab abnormalities, going to OR and other pertinent info. @ - 64 male for reevaluation of acute diverticulitis, patient presents with uncontrolled pain nausea vomiting from diverticulitis will admit for symptom management Admitted Undiagnosed new problem with uncertain prognosis? @ -no Drug Therapy requiring intensive monitoring for toxicity (Heparin, Nitro, Insulin, Cardizem)? @ -no Were any procedures done? @ -no Diagnosis/symptom? @ -Acute diverticulitis failed outpatient treatment Acute, or Chronic, or Acute on Chronic? @ -Acute Uncomplicated (without systemic symptoms) or Complicated (systemic symptoms)? @ -Complicated Side effects of treatment? @ -no Exacerbation, Progression, or Severe Exacerbation? @ -exacerbation Poses a threat to life or bodily function? How? (Chest pain, [place], [place], pneumonia, PE, COPD, DKA, ARF, appy, cholecystitis, CVA, Diverticulitis, Homicidal, Suicidal, threat to staff... and all critical care pts) @ -no Reevaluation #5: Differential Abdominal Pain Men: Appendicitis, cholecystitis, diverticulosis, ischemic bowel, pancreatitis, hepatitis, UTI, gastroenteritis, AAA, incarcerated hernia, bowel obstruction, constipation, inflammatory bowel, hepatitis, peptic ulcer disease, splenic infarction, perforated viscus, testicular torsion, this is not meant to be an all-inclusive list Medical Decision Making - Medical Decision Making 64 male for reevaluation of acute diverticulitis, patient presents with uncontrolled pain nausea vomiting from diverticulitis will admit for symptom management - Lab Data Result diagrams: 01/01/25 04:16 01/01/25 04:16 Lab Results 12/26/24 12/26/24 12/26/24 Range/Units 02:55 02:55 02:55 WBC 19.62 H (4.50-10.00) 10*3/uL RBC 4.95 (4.40-5.60) 10*6/uL Hgb 15.2 (13.0-17.0) g/dL Hct 44.0 (39.6-50.0) % MCV 88.9 (80.0-97.0) fL MCH 30.7 (27.0-32.0) pg MCHC 34.5 (32.0-37.0) g/dL Plt Count 299 (140-440) 10*3/uL MPV 8.5 L (9.5-12.2) fL Immature Gran % (Auto) 0.6 % Neutrophils % 90.4 % Lymphocytes % 3.9 % Monocytes % 4.9 % Eosinophils % 0.0 % Basophils % 0.2 % Immature Gran # 0.12 H (0.00-0.04) 10*3/uL Neutrophils # 17.74 H (1.80-7.70) 10*3/uL Lymphocytes # 0.76 L (0.90-5.00) 10*3/uL Monocytes # 0.97 (0.20-1.00) 10*3/uL Eosinophils # 0.00 L (0.04-0.35) 10*3/uL Basophils # 0.03 (0.00-0.10) 10*3/uL Sodium 131 L (137-145) mmol/L Potassium 4.1 (3.5-5.1) mmol/L Chloride 96 L (98-107) mmol/L Carbon Dioxide 24 (22-30) mmol/L Anion Gap 11 mmol/L BUN 9 (9-20) mg/dL Creatinine 0.63 L (0.66-1.25) mg/dL Est GFR (CKD-EPI)AfAm >90 (>60 ml/min/1.73 sqM) Est GFR (CKD-EPI)NonAf >90 (>60 ml/min/1.73 sqM) Glucose 119 H (74-99) mg/dL Plasma Lactic Acid Neeraj 0.9 (0.7-2.0) mmol/L Calcium 9.6 (8.4-10.2) mg/dL Total Bilirubin 1.0 (0.2-1.3) mg/dL AST 33 (17-59) U/L ALT 22 (4-49) U/L Alkaline Phosphatase 80 (38-126) U/L Total Protein 7.2 (6.3-8.2) g/dL Albumin 4.3 (3.5-5.0) g/dL Amylase 71 (30-110) U/L Lipase 52 (23-300) U/L - EKG Data -: EKG Interpreted by Me (EKG sinus 85 TX 150 QRS 108 QTc 395) Disposition Clinical Impression: Diverticulitis, Abdominal pain, Perforation of sigmoid colon due to diverticulitis, Leukocytosis Disposition: ADMITTED IP TO THIS HOSP Condition: Serious Is patient prescribed a controlled substance at d/c from ED?: No Time of Disposition: 05:00
[2024-12-26] MEDS: ONDANSETRON 4 MG/2 ML VIAL IVP STA (02:48)
[2024-12-26] MEDS: HYDROmorphone 1 MG/ML 1 ML SYRINGE IVP STA ×2 (02:49→05:09)
[2024-12-26] MEDS: PANTOPRAZOLE 40 MG/10 ML VIAL IVP STA (02:49)
[2024-12-26] MEDS: SODIUM CHLORIDE 0.9% 1,000 ML IV ONE (02:49)
[2024-12-26 03:03] LABS: Basophils # (A) 0.03 10*3/uL (0.00-0.10); Basophils % (A) 0.2 %; Eosinophils # (A) 0.00 10*3/uL (0.04-0.35); Eosinophils % (A) 0.0 %; HCT 44.0 % (39.6-50.0); HGB 15.2 g/dL (13.0-17.0); Lymphocytes # (A) 0.76 10*3/uL (0.90-5.00); Lymphocytes % (A) 3.9 %; MCH 30.7 pg (27.0-32.0); MCHC 34.5 g/dL (32.0-37.0); MCV 88.9 fL (80.0-97.0); Monocytes # (A) 0.97 10*3/uL (0.20-1.00); Monocytes % (A) 4.9 %; Neutrophils # (A) 17.74 10*3/uL (1.80-7.70); Neutrophils % (A) 90.4 %; Platelet Count 299 10*3/uL (140-440); RBC 4.95 10*6/uL (4.40-5.60); RDW 12.0 % (11.5-14.5); WBC 19.62 10*3/uL (4.50-10.00)
[2024-12-26 03:17] LABS: ALT 22 U/L (4-49); AST 33 U/L (17-59); African American GFR (CKD) >90 (>60 ml/min/1.73 sqM); Albumin 4.3 g/dL (3.5-5.0); Alkaline Phosphatase 80 U/L (38-126); Amylase 71 U/L (30-110); Anion Gap 11 mmol/L; Blood Urea Nitrogen 9 mg/dL (9-20); Calcium 9.6 mg/dL (8.4-10.2); Carbon Dioxide 24 mmol/L (22-30); Chloride 96 mmol/L (98-107); Glucose 119 mg/dL (74-99); Lipase 52 U/L (23-300); Non-African American GFR(CKD) >90 (>60 ml/min/1.73 sqM); Potassium 4.1 mmol/L (3.5-5.1); Sodium 131 mmol/L (137-145); Total Protein 7.2 g/dL (6.3-8.2)
[2024-12-26] MEDS: cefTRIAXone IN SWFI 1,000 MG/10 ML SYRINGE IVP STA (04:49)
[2024-12-26] MEDS: LEVOFLOXACIN 750MG-D5W PMX 750 MG in DEXTROSE/WATER 1 150ML.BAG IVPB STA (04:51)
[2024-12-26] MEDS ORDERED: NALOXONE 0.4 MG/ML 1 ML VIAL IV PRN (04:55)
[2024-12-26] MEDS: SODIUM CHLORIDE 0.9% 1,000 ML IV SCH (05:09)
[2024-12-26] MEDS: ONDANSETRON 4 MG/2 ML VIAL IVP PRN (05:09)
--- NOTE | 2024-12-26 07:12 | P.HPIM ---
History of Present Illness H&P Date: 12/26/24 64-year-old male with hypertension Patient coming in with 2-1/2-day history of left lower quadrant and suprapubic abdominal pain sharp comes and goes worse with food 8-10 out of 10 in severity no diarrhea no GI bleeding but associated with nausea vomiting low-grade fever. Similar to what he had before when he was diagnosed with diverticulitis back in October of this year. Patient had colonoscopies before and showed spots of diverticuli no history of cancer. Patient came to the emergency department yesterday was given antibiotics with levofloxacin and sent home however he comes back due to intolerable pain not controlled with home medications Patient denies any suspected unsanitary food or drink denies any history of kidney stones denies any hematuria denies any trauma to the abdomen. Patient denies tobacco smoking heavy alcohol or street drugs Patient had cholecystectomy and appendectomy in the past review of systems Pertinent positives as noted in HPI. All other systems were reviewed and are negative on exam Constitutional: No acute distress, conversant, pleasant Eyes: Anicteric sclerae, moist conjunctiva, Pupils equal round reactive to light ENMT: NC/AT Oropharynx clear, no erythema, or exudates Neck: Supple, no masses, or JVD No carotid bruits No thyromegaly Lungs: Clear to auscultation Clear to percussion Normal respiratory effort, no accessory muscle use Cardiovascular: Heart regular in rate and rhythm, No murmurs, gallops, or rubs No peripheral edema Abdominal: Soft Tenderness to deep palpation in the suprapubic and left lower quadrant region, no guarding, rebound or rigidity Abdomen moving with respiration Normoactive bowel sounds No hepatomegaly, No splenomegaly No palpable mass No abdominal wall hernia noted Extremities: No digital cyanosis No clubbing Pedal pulses intact and symmetrical Radial pulses intact and symmetrical No calf tenderness Psychiatric: Alert and oriented to person, place and time Appropriate affect fair judgment Neuro Muscles Strength 5/5 in all 4 extremities Sensation to light touch grossly present throughout Cranial nerves II-XII grossly intact Past Medical History Past Medical History: Hypertension Additional Past Medical History / Comment(s): vertigo, diverticultitis. HX BLOOD IN STOOL History of Any Multi-Drug Resistant Organisms: None Reported Past Surgical History: Adenoidectomy, Appendectomy, Cholecystectomy, Heart Catheterization, Hernia Repair, Orthopedic Surgery, Tonsillectomy Additional Past Surgical History / Comment(s): right shoulder SX, COLONOSCOPY Past Anesthesia/Blood Transfusion Reactions: No Reported Reaction Past Psychological History: No Psychological Hx Reported Smoking Status: Former smoker Past Alcohol Use History: Rare Past Drug Use History: None Reported - Past Family History Mother Family Medical History: Coronary Artery Disease (CAD), Diabetes Mellitus Father Family Medical History: Coronary Artery Disease (CAD) Additional Family Medical History / Comment(s): "lower aorta bust" Medications and Allergies Home Medications Medication Instructions Recorded Confirmed Type Losartan Potassium [Cozaar] 25 mg PO DAILY 08/30/22 08/30/22 History amLODIPine BESYLATE [Amlodipine 5 mg PO DAILY 08/30/22 08/30/22 History Besylate] Ketorolac [Toradol] 10 mg PO Q8HR #15 tab 10/29/24 Rx Ondansetron Odt [Zofran Odt] 4 mg PO Q8HR PRN #10 tab 10/29/24 Rx Levofloxacin [Levaquin] 750 mg PO DAILY #10 tab 12/25/24 Rx Allergies Allergy/AdvReac Type Severity Reaction Status Date / Time meperidine HCl [From Demerol] Allergy Intermediate Rash/Hives Verified 12/26/24 01:59 Penicillins Allergy Intermediate Rash/Hives Verified 12/26/24 01:59 Sulfa (Sulfonamide Allergy Rash/Hives Verified 12/26/24 01:59 Antibiotics) sulfamethoxazole Allergy Rash/Hives Verified 12/26/24 01:59 [From Bactrim] trimethoprim [From Bactrim] Allergy Rash/Hives Verified 12/26/24 01:59 Physical Exam Vitals: Vital Signs Temp Pulse Resp BP Pulse Ox 12/26/24 04:46 96 18 154/90 95 12/26/24 02:56 94 18 141/79 94 L 12/26/24 01:56 98.1 F 93 18 156/88 95 Intake and Output 12/25/24 12/25/24 12/26/24 14:59 22:59 06:59 Other: Weight 95.708 kg Results CBC & Chem 7: 12/26/24 02:55 12/26/24 02:55 Labs: Abnormal Lab Results - Last 24 Hours (Table) 12/26/24 12/26/24 Range/Units 02:55 02:55 WBC 19.62 H (4.50-10.00) 10*3/uL MPV 8.5 L (9.5-12.2) fL Immature Gran # 0.12 H (0.00-0.04) 10*3/uL Neutrophils # 17.74 H (1.80-7.70) 10*3/uL Lymphocytes # 0.76 L (0.90-5.00) 10*3/uL Eosinophils # 0.00 L (0.04-0.35) 10*3/uL Sodium 131 L (137-145) mmol/L Chloride 96 L (98-107) mmol/L Creatinine 0.63 L (0.66-1.25) mg/dL Glucose 119 H (74-99) mg/dL Assessment and Plan Assessment: 64-year-old male with hypertension coming in with 2 and half day history of abdominal pain I discussed case with ED doctor accepted the admission for acute diverticulitis failed outpatient therapy with anticipated length of stay more than 2 midnights Sepsis secondary to acute diverticulitis Failed outpatient therapy due to intolerable pain CT of the abdomen showed acute diverticulitis similar to October with no free air fluid collection or abscess Patient allergic to penicillin resulting in rash all over Patient started on levofloxacin 750 mg IV piggyback daily in the ED continue with that every 24 hours Add Flagyl 500 mg IV piggyback every 8 hours Surgery consult IV fluid hydration status post 2 L boluses continue with normal saline at 130 cc/h Pain control with Dilaudid 1 mg every 3 hours IV push as needed In the ED was started on Zofran 4 mg every 8 hours as needed for nausea vomiting, check EKG to rule out any prolonged QTc interval Blood work showing white count 19.62 elevated Hemoglobin 15 unremarkable Lipase unremarkable 52 hypertension Controlled Resume home medications amlodipine And losartan Mild hyponatremia Continue with IV fluid hydration with normal saline as above Otherwise renal function unremarkable with BUN 9 creatinine 0.6 potassium 4 Full code DVT prophylaxis Lovenox 40 mg subcu daily
[2024-12-26] MEDS: PANTOPRAZOLE 40 MG/10 ML VIAL IV SCH (07:47)
[2024-12-26] MEDS: metroNIDAZOLE-NS PMX 500 MG in SALINE 1 100ML.BAG IVPB SCH (08:14)
[2024-12-26] MEDS: amLODIPine 5 MG TAB PO SCH (08:14)
[2024-12-26] MEDS: LOSARTAN 25 MG TAB PO SCH (08:14)
[2024-12-26] MEDS: HYDROmorphone 1 MG/ML 1 ML SYRINGE IVP PRN (08:15)
[2024-12-26] MEDS: ENOXAPARIN 40 MG/0.4 ML SYRINGE SQ SCH (08:23)
--- NOTE | 2024-12-26 15:07 | P.CON ---
Consult Note - . Consult date: 12/26/24 Assessment/Plan:: 64 year old male presents with 2-1/2-day history of left lower quadrant and suprapubic sharp abdominal pain. The pain comes and goes worse and is worse with eating. The pain is 8/10 in severity. Patient denies diarrhea. Denies GI bleed. He has associated nausea and vomiting with a low-grade fever. The pain is similar to the pain he had previously when he was diagnosed with diverticulitis back in October of this year. Patient has had prior colonoscopies. He was noted to have diverticulosis and diverticulitis on colonoscopy. Patient came to the [facility] Emergency Department yesterday and was given antibiotics and sent home however he comes back to the ER due to intolerable pain. On my evaluation, the patients abdominal pain has improved. Review of Systems ROS Statement: Those systems with pertinent positive or pertinent negative responses have been documented in the HPI. Past Medical History Past Medical History: Hypertension Additional Past Medical History / Comment(s): vertigo, diverticultitis. HX BLOOD IN STOOL History of Any Multi-Drug Resistant Organisms: None Reported Past Surgical History: Adenoidectomy, Appendectomy, Cholecystectomy, Heart Catheterization, Hernia Repair, Orthopedic Surgery, Tonsillectomy Additional Past Surgical History / Comment(s): right shoulder SX, COLONOSCOPY Past Anesthesia/Blood Transfusion Reactions: No Reported Reaction Past Psychological History: No Psychological Hx Reported Smoking Status: Former smoker Past Alcohol Use History: Rare Past Drug Use History: None Reported - Past Family History Mother Family Medical History: Coronary Artery Disease (CAD), Diabetes Mellitus Father Family Medical History: Coronary Artery Disease (CAD) Additional Family Medical History / Comment(s): "lower aorta bust" General Exam Limitations: no limitations General appearance: alert, in no apparent distress Head exam: Present: atraumatic, normocephalic, normal inspection Eye exam: Present: normal appearance, PERRL, EOMI. Absent: scleral icterus, conjunctival injection, periorbital swelling ENT exam: Present: normal exam, mucous membranes moist Neck exam: Present: normal inspection. Absent: tenderness, meningismus, lymphadenopathy Respiratory exam: Present: normal lung sounds bilaterally. Absent: respiratory distress, wheezes, rales, rhonchi, stridor Cardiovascular Exam: Present: regular rate, normal rhythm, normal heart sounds. Absent: systolic murmur, diastolic murmur, rubs, gallop, clicks GI/Abdominal exam: Present: soft, normal bowel sounds. Absent: distended, tenderness, guarding, rebound, rigid Extremities exam: Present: normal inspection, full ROM, normal capillary refill. Absent: tenderness, pedal edema, joint swelling, calf tenderness Back exam: Present: normal inspection Neurological exam: Present: alert, oriented X3, CN II-XII intact Psychiatric exam: Present: normal affect, normal mood Skin exam: Present: warm, dry, intact, normal color. Absent: rash 64 year old male with Diverticulitis -Ok for Clear Liquid Diet -IV fluids -Agree with Antibiotics -Pain and Nausea Control -No acute surgical intervention -Patient will need outpatient colonoscopy in 4-6 weeks Cl Kirby DO [facility] [phone]
[2024-12-27 10:19] LABS: Basophils # (A) 0.04 X 10*3/uL (0.00-0.10); Basophils % (A) 0.2 %; Eosinophils # (A) 0.01 X 10*3/uL (0.04-0.35); Eosinophils % (A) 0.1 %; HCT 43.3 % (39.6-50.0); HGB 14.7 g/dL (13.0-17.0); Immature Grans, Automated 0.80 %; Lymphocytes # (A) 0.97 X 10*3/uL (0.90-5.00); Lymphocytes % (A) 5.3 %; MCH 30.8 pg (27.0-32.0); MCHC 33.9 g/dL (32.0-37.0); MCV 90.8 FL (80.0-97.0); Monocytes # (A) 1.18 X 10*3/uL (0.20-1.00); Monocytes % (A) 6.5 %; NRBC Per 100 WBC 0 X 10*3/uL (0.00-0.01); Neutrophils # (A) 15.80 X 10*3/uL (1.80-7.70); Neutrophils % (A) 87.1 %; Platelet Count 289 X 10*3/uL (140-440); RBC 4.77 X 10*6/uL (4.40-5.60); RDW 12.1 % (11.5-14.5); WBC 18.14 X 10*3/uL (4.50-10.00)
[2024-12-27 10:35] LABS: Albumin 3.8 g/dL (3.8-4.9); Anion Gap 11.80 mmol/L (4.00-12.00); BUN/Creat Ratio 13.71 Ratio (12.00-20.00); Blood Urea Nitrogen 9.6 mg/dL (9.0-27.0); Calcium 8.6 mg/dL (8.7-10.3); Carbon Dioxide 24.2 mmol/L (21.6-31.8); Chloride 95 mmol/L (96-109); Globulin 2.4 g/dL (1.6-3.3); Glucose 94 mg/dL (70-110); Magnesium 1.8 mg/dL (1.5-2.4); Potassium 4.1 mmol/L (3.5-5.5); Sodium 131 mmol/L (135-145); Total Protein 6.2 g/dL (6.2-8.2)
[2024-12-27 10:36] LABS: ALT 24 U/L (10-49); AST 25 U/L (14-35); Albumin/Globulin Ratio 1.58 Ratio (1.60-3.17); Alkaline Phosphatase 83 U/L (41-126)
--- NOTE | 2024-12-27 11:31 | P.CONS ---
History of Present Illness - Reason for Consult Consult date: 12/27/24 Colitis, diverticulitis known Requesting physician: Jeffry Barrios - Chief Complaint Abdominal pain - History of Present Illness This is a pleasant 64-year-old male with a past medical history of diverticulitis/colitis who presented to the emergency department on 12/25/2024 with complaints of abdominal pain and nausea and vomiting. He was discharged on oral antibiotics however patient continued to have abdominal pain and presented back to the emergency department was admitted for IV antibiotics. Patient had a CT of the abdomen pelvis with contrast from 12/25/2024 reported acute diverticulitis of the sigmoid colon without bowel obstruction abscess or free air or free fluid. Gastroenterology has been consulted for colitis/diverticulitis. He states he has had lower abdominal pain along with back pain as well as constipation and no bowel movement since Friday. He takes MiraLAX twice a day. Denies any blood per rectum. No nausea or vomiting. Was last seen in the office around October which she states was last episode of diverticulitis. Last colonoscopy was 08/30/[address] aSnchez with findings of segmental colitis of the sigmoid colon 30 to 45 cm from anal verge with friability and mucosal erythema likely diverticular related colitis with biopsy reporting acute colitis with factors of chronicity. Patient does take balsalazide 2250 mg p.o. twice daily. Was admitted with leukocytosis, he has been afebrile. He is currently on IV Flagyl and Levaquin. States that his pain is little bit better today. Review of Systems REVIEW OF SYSTEMS: CARDIOPULMONARY: No chest pain or shortness of breath. Gastrointestinal: Abdominal pain. No nausea or vomiting. No hematemesis, coffee-ground emesis. No rectal bleeding, or melena. Constipation. GENITOURINARY: No dysuria or hematuria. Difficult to initiate urinary stream. MUSCULOSKELETAL: Reports normal range of motion., Joint pain. SKIN: No rashes. No jaundice. ENDOCRINE: No chills, fevers. No excessive weight gain or loss. No polydipsia or polyuria. PSYCHIATRIC: Unremarkable. NEUROLOGY: No change in mental status. Denies dizziness, headache. ENT: Vision unremarkable. CONSTITUTIONAL: No recent weight loss. No fever, chills, night sweats. Past Medical History Past Medical History: Hypertension Additional Past Medical History / Comment(s): vertigo, diverticultitis. HX BLOOD IN STOOL History of Any Multi-Drug Resistant Organisms: None Reported Past Surgical History: Adenoidectomy, Appendectomy, Cholecystectomy, Heart Catheterization, Hernia Repair, Orthopedic Surgery, Tonsillectomy Additional Past Surgical History / Comment(s): right shoulder SX, COLONOSCOPY Past Anesthesia/Blood Transfusion Reactions: No Reported Reaction Past Psychological History: No Psychological Hx Reported Smoking Status: Former smoker Past Alcohol Use History: Rare Additional Past Alcohol Use History / Comment(s): started 1976 stopped07/17/201507/08 ppd Past Drug Use History: None Reported - Past Family History Mother Family Medical History: Coronary Artery Disease (CAD), Diabetes Mellitus Father Family Medical History: Coronary Artery Disease (CAD) Additional Family Medical History / Comment(s): "lower aorta bust" Medications and Allergies Home Medications Medication Instructions Recorded Confirmed Type Losartan Potassium [Cozaar] 25 mg PO DAILY 08/30/22 12/26/24 History Levofloxacin [Levaquin] 750 mg PO DAILY #10 tab 12/25/24 12/26/24 Rx Balsalazide Disodium 2,250 mg PO BID 12/26/24 12/26/24 History Dicyclomine [Bentyl] 10 mg PO TID 12/26/24 12/26/24 History Famotidine [Pepcid] 20 mg PO BID-W/MEALS PRN 12/26/24 12/26/24 History amLODIPine [Norvasc] 5 mg PO DAILY 12/26/24 12/26/24 History Allergies Allergy/AdvReac Type Severity Reaction Status Date / Time meperidine HCl [From Demerol] Allergy Intermediate Rash/Hives Verified 12/26/24 11:33 Penicillins Allergy Intermediate Rash/Hives Verified 12/26/24 11:33 Sulfa (Sulfonamide Allergy Rash/Hives Verified 12/26/24 11:33 Antibiotics) sulfamethoxazole Allergy Rash/Hives Verified 12/26/24 11:33 [From Bactrim] trimethoprim [From Bactrim] Allergy Rash/Hives Verified 12/26/24 11:33 Physical Exam Vitals: Vital Signs Temp Pulse Pulse Resp BP BP Pulse Ox 12/27/24 05:35 98.8 F 86 18 162/92 93 L 12/27/24 01:23 89 18 155/94 96 12/26/24 23:10 90 18 147/61 96 12/26/24 20:35 86 18 150/82 96 12/26/24 19:10 98.9 F 90 19 154/92 95 12/26/24 15:00 90 16 152/88 96 Intake and Output 12/26/24 12/27/24 12/27/24 22:59 06:59 14:59 Other: Weight 95.708 kg General appearance: The patient is alert, oriented, appears in no acute distress. HET: Head is normocephalic and atraumatic. Conjunctiva pink. Sclera anicteric. Neck: Supple without lymphadenopathy. Trachea midline. Heart: Regular. Lungs: Equal expansion, normal respiratory effort. Abdomen: Soft, right lower quadrant pain, nondistended. Skin: No rashes. No jaundice. Extremities: Normal skin color and turgor. No pedal edema. Neurological: No focal deficits. Alert and oriented x3. Results CBC & Chem 7: 12/27/24 06:33 12/27/24 06:33 Labs: Abnormal Lab Results - Last 24 Hours (Table) 12/27/24 12/27/24 Range/Units 06:33 06:33 WBC 18.14 H (4.50-10.00) X 10*3/uL MPV 8.8 L (9.5-12.2) FL Immature Gran # 0.14 H (0.00-0.04) X 10*3/uL Neutrophils # 15.80 H (1.80-7.70) X 10*3/uL Monocytes # 1.18 H (0.20-1.00) X 10*3/uL Eosinophils # 0.01 L (0.04-0.35) X 10*3/uL Sodium 131 L (135-145) mmol/L Chloride 95 L (96-109) mmol/L Calcium 8.6 L (8.7-10.3) mg/dL Albumin/Globulin Ratio 1.58 L (1.60-3.17) Ratio Assessment and Plan (1) Diverticulitis Narrative/Plan: 64-year-old male with previous history of diverticulitis with recurrent episode. Last colonoscopy in August 2022 with findings of segmental colitis of the sigmoid 30 to 45 cm from anal verge with friability and mucosal erythema findings of diverticulitis related colitis. Last episode in October of this year. Currently on IV Levaquin and Flagyl with some symptom improvement. Recommend continued antibiotic therapy. Continue balsalazide. Will order inflammatory markers. OutPatient colonoscopy in 4 to 6 weeks. Discussed with patient if he has continued recurrent diverticulitis may need to seek surgical evaluation. Current Visit: No Status: Acute Code(s): K57.92 - DVTRCLI OF INTEST, PART UNSP, W/O PERF OR ABSCESS W/O BLEED SNOMED Code(s): 304868620 (2) Abdominal pain Current Visit: Yes Status: Acute Code(s): R10.9 - UNSPECIFIED ABDOMINAL PAIN SNOMED Code(s): 87071075 Plan: 1. Continue symptomatic supportive care 2. Continue pain medication as needed 3. Continue IV antibiotics as ordered 4. Clear liquid diet 5. CRP sed rate ordered 6. Continue with recommendations from general surgery 7. Recommend outpatient follow-up Thank you for this consultation, we will continue to follow. Dr. Scarlett Sanchez I agree with the dictator's note, documented as a scribe by Ana Lilia Gresham.
--- NOTE | 2024-12-27 12:26 | P.PN ---
Subjective Progress Note Date: 12/27/24 Subjective: Patient seen and examined at bedside. No acute events overnight. Claims that abdominal pain is still persistent. Pertinent positives and negatives as discussed above, a complete review of systems was performed and all other systems are negative. Vitals Signs Reviewed. General: Nontoxic, no distress, appears at stated age Derm: Warm, dry Head: Atraumatic, normocephalic, symmetric Eyes: EOMI, no lid lag, anicteric sclera Mouth: No lip lesion, mucus membranes moist Cardiovascular: S1S2 reg, no murmur Lungs: CTA bilateral, no rhonchi, no rales, no accessory muscle use Abdominal: Soft, tender to palpation in lower abdomen and left lower quadrant, no guarding, no appreciable organomegaly Ext: No gross muscle atrophy, no edema, no contractures Neuro: CN II-XI grossly intact, no focal neuro deficits Psych: Alert, oriented, appropriate affect Data Reviewed Today: Pertinent Labs: WBC 18.14, bicarb 24.2, potassium 4.1, sodium 131, creatinine 0.7, CRP 16.8. Imaging: No new imaging Assessment and Plan: Active: Sepsis secondary to acute diverticulitis - GI consulted, recommended to continue balsalazide 2.25 g twice daily - Will need outpatient colonoscopy in 4 to 6 weeks - Pain control with IV Dilaudid as needed - Continue MiraLAX 17 g daily - Continue IV levofloxacin 750 every 24 hours, IV Flagyl 500 every 8 hours - On clear liquid diet - Surgery following Hyponatremia, likely hypovolemic - Continue normal saline 130 cc an hour Chronic: Hypertension DVT ppx: Lovenox Code status: Full code Anticipated discharge place: Pending clinical course Anticipated discharge time: Pending clinical course Patient being transitioned to inpatient status. Objective - Vital Signs Vital signs: Vital Signs Temp 98.8 F 12/27/24 05:35 Pulse 86 12/27/24 05:35 Resp 18 12/27/24 05:35 BP 162/92 12/27/24 05:35 Pulse Ox 93 L 12/27/24 05:35 FiO2 Intake & Output 12/26/24 12/27/24 12/27/24 18:59 06:59 18:59 Weight 95.708 kg Other: # Voids 3 - Labs CBC & Chem 7: 12/27/24 06:33 06/23/25 06:33 Labs: Abnormal Lab Results - Last 24 Hours (Table) 12/27/24 12/27/24 12/27/24 Range/Units 06:33 06:33 11:39 WBC 18.14 H (4.50-10.00) X 10*3/uL MPV 8.8 L (9.5-12.2) FL Immature Gran # 0.14 H (0.00-0.04) X 10*3/uL Neutrophils # 15.80 H (1.80-7.70) X 10*3/uL Monocytes # 1.18 H (0.20-1.00) X 10*3/uL Eosinophils # 0.01 L (0.04-0.35) X 10*3/uL Sodium 131 L (135-145) mmol/L Chloride 95 L (96-109) mmol/L Calcium 8.6 L (8.7-10.3) mg/dL C-Reactive Protein 16.8 H (<1.0) mg/dL Albumin/Globulin Ratio 1.58 L (1.60-3.17) Ratio
--- NOTE | 2024-12-27 12:46 | P.PN ---
Subjective Progress Note Date: 12/27/24 SURGICAL PROGRESS NOTE CHIEF COMPLAINT: Diverticulitis HISTORY OF PRESENT ILLNESS: Patient reports pain is decreased since admission. 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 He did have some nausea with medications earlier this has improved. He is having flatus. He has prior history of diverticulitis. Afebrile. WBC is down from 19.6-18.14 PHYSICAL EXAM: VITAL SIGNS: Reviewed. GENERAL: Well-developed in no acute distress. ABDOMEN: Soft. Nondistended. Tenderness palpation suprapubic area and mildly tender left lower quadrant NEUROLOGIC: Alert and oriented. Cranial nerves II through XII grossly intact. ASSESSMENT: 1. Acute diverticulitis PLAN: - Continue clear liquid diet - Continue IV antibiotics - Continue IV fluids - Repeat CBC in a.m. Physician Employee Development Specialist note has been reviewed by physician. Signing provider agrees with the documented findings, assessment, and plan of care. Attestation Patient seen and examined at bedside. Present with chief complaint of abdominal pain. Working diagnosis of diverticulitis. He does state that his pain is somewhat improved since presentation. He states he still has episodes of pain, mainly in the suprapubic region. He is unclear liquid diet. Leukocytosis minimally downward trending at this time. Continue IV antibiotics. Will repeat CBC in AM. If continued significant elevation of leukocytosis, I would recommend CT for evaluation of possibility of diverticular abscess. Will contin ue to follow and make recommendations based on patient's clinical progress. Meg Harris, Objective - Vital Signs Vital signs: Vital Signs Temp 98.8 F 12/27/24 05:35 Pulse 86 12/27/24 05:35 Resp 18 12/27/24 05:35 BP 162/92 12/27/24 05:35 Pulse Ox 93 L 12/27/24 05:35 FiO2 Intake & Output 12/26/24 12/27/24 12/27/24 18:59 06:59 18:59 Weight 95.708 kg Other: # Voids 3 - Labs CBC & Chem 7: 12/27/24 06:33 12/27/24 06:33 Labs: Abnormal Lab Results - Last 24 Hours (Table) 12/27/24 12/27/24 12/27/24 Range/Units 06:33 06:33 11:39 WBC 18.14 H (4.50-10.00) X 10*3/uL MPV 8.8 L (9.5-12.2) FL Immature Gran # 0.14 H (0.00-0.04) X 10*3/uL Neutrophils # 15.80 H (1.80-7.70) X 10*3/uL Monocytes # 1.18 H (0.20-1.00) X 10*3/uL Eosinophils # 0.01 L (0.04-0.35) X 10*3/uL Sodium 131 L (135-145) mmol/L Chloride 95 L (96-109) mmol/L Calcium 8.6 L (8.7-10.3) mg/dL C-Reactive Protein 16.8 H (<1.0) mg/dL Albumin/Globulin Ratio 1.58 L (1.60-3.17) Ratio
[2024-12-27] MEDS: BALSALAZIDE DISODIUM 750 MG CAPSULE PO SCH (13:42)
[2024-12-27] MEDS: LEVOFLOXACIN 750MG-D5W PMX 750 MG in DEXTROSE/WATER 1 150ML.BAG IVPB SCH (15:58)
[2024-12-28 06:47] LABS: Basophils # (A) 0.02 10*3/uL (0.00-0.10); Basophils % (A) 0.1 %; Eosinophils # (A) 0.06 10*3/uL (0.04-0.35); Eosinophils % (A) 0.4 %; HCT 43.5 % (39.6-50.0); HGB 14.8 g/dL (13.0-17.0); Lymphocytes # (A) 0.87 10*3/uL (0.90-5.00); Lymphocytes % (A) 6.2 %; MCH 30.6 pg (27.0-32.0); MCHC 34.0 g/dL (32.0-37.0); MCV 90.1 fL (80.0-97.0); Monocytes # (A) 0.77 10*3/uL (0.20-1.00); Monocytes % (A) 5.5 %; Neutrophils # (A) 12.18 10*3/uL (1.80-7.70); Neutrophils % (A) 86.9 %; Platelet Count 314 10*3/uL (140-440); RBC 4.83 10*6/uL (4.40-5.60); RDW 11.9 % (11.5-14.5); WBC 14.02 10*3/uL (4.50-10.00)
[2024-12-28 07:04] LABS: African American GFR (CKD) >90 (>60 ml/min/1.73 sqM); Anion Gap 7 mmol/L; Blood Urea Nitrogen 10 mg/dL (9-20); Calcium 9.0 mg/dL (8.4-10.2); Carbon Dioxide 28 mmol/L (22-30); Chloride 99 mmol/L (98-107); Glucose 99 mg/dL (74-99); Non-African American GFR(CKD) >90 (>60 ml/min/1.73 sqM); Potassium 3.8 mmol/L (3.5-5.1); Sodium 134 mmol/L (137-145)
--- NOTE | 2024-12-28 09:43 | P.PN ---
Subjective Progress Note Date: 12/28/24 Principal diagnosis: Diverticulitis This is a pleasant 64-year-old male with a past medical history of diverticulitis/colitis who presented to the emergency department on 12/25/2024 with complaints of abdominal pain and nausea and vomiting. He was discharged on oral antibiotics however patient continued to have abdominal pain and presented back to the emergency department was admitted for IV antibiotics. Patient had a CT of the abdomen pelvis with contrast from 12/25/2024 reported acute diverticulitis of the sigmoid colon without bowel obstruction abscess or free air or free fluid. Gastroenterology has been consulted for colitis/diverticulitis. He states he has had lower abdominal pain along with back pain as well as constipation and no bowel movement since Friday. He takes MiraLAX twice a day. Denies any blood per rectum. No nausea or vomiting. Was last seen in the office around October which she states was last episode of diverticulitis. Last colonoscopy was 08/30/[address] 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 Patient does take balsalazide 2250 mg p.o. twice daily. Was admitted with leukocytosis, he has been afebrile. He is currently on IV Flagyl and Levaquin. States that his pain is little bit better today. 12/28/2024 Patient is seen and examined today as a follow-up. States abdominal pain is better but he is still having lower abdominal cramping. Passing gas but no bowel movement. No nausea or vomiting. Patient's been afebrile. Leukocytosis is improving and WBC is 14 down from 18. Sed rate 22 and CRP 16.8 Objective - Vital Signs Vital signs: Vital Signs Temp 99.1 F 12/28/24 02:00 Pulse 80 12/28/24 02:00 Resp 19 12/27/24 20:30 BP 136/64 12/28/24 02:00 Pulse Ox 96 12/28/24 02:00 FiO2 Intake & Output 12/27/24 12/28/24 12/28/24 18:59 06:59 18:59 Weight 95.708 kg Other: Voiding Method Toilet # Voids 3 - Exam General appearance: The patient is alert, oriented, appears in no acute distress. HET: Head is normocephalic and atraumatic. Conjunctiva pink. Sclera anicteric. Neck: Supple without lymphadenopathy. Abdomen: Soft, left lower quadrant tenderness, nondistended. Extremities: Normal skin color and turgor. No pedal edema Skin: No rashes, no jaundice Neurological: No focal deficits. Alert and oriented. - Labs CBC & Chem 7: 12/28/24 06:32 12/28/24 06:32 Labs: Abnormal Lab Results - Last 24 Hours (Table) 12/27/24 12/27/24 12/27/24 Range/Units 06:33 06:33 11:39 WBC 18.14 H (4.50-10.00) X 10*3/uL MPV 8.8 L (9.5-12.2) FL Immature Gran # 0.14 H (0.00-0.04) X 10*3/uL Neutrophils # 15.80 H (1.80-7.70) X 10*3/uL Lymphocytes # (0.90-5.00) 10*3/uL Monocytes # 1.18 H (0.20-1.00) X 10*3/uL Eosinophils # 0.01 L (0.04-0.35) X 10*3/uL ESR 22 H (0-20) mm/Hr Sodium 131 L (135-145) mmol/L Chloride 95 L (96-109) mmol/L Creatinine (0.66-1.25) mg/dL Calcium 8.6 L (8.7-10.3) mg/dL C-Reactive Protein (<1.0) mg/dL Albumin/Globulin Ratio 1.58 L (1.60-3.17) Ratio 12/27/24 12/28/24 12/28/24 Range/Units 11:39 06:32 06:32 WBC 14.02 H (4.50-10.00) X 10*3/uL MPV 8.2 L (9.5-12.2) FL Immature Gran # 0.12 H (0.00-0.04) X 10*3/uL Neutrophils # 12.18 H (1.80-7.70) X 10*3/uL Lymphocytes # 0.87 L (0.90-5.00) 10*3/uL Monocytes # (0.20-1.00) X 10*3/uL Eosinophils # (0.04-0.35) X 10*3/uL ESR (0-20) mm/Hr Sodium 134 L (135-145) mmol/L Chloride (96-109) mmol/L Creatinine 0.63 L (0.66-1.25) mg/dL Calcium (8.7-10.3) mg/dL C-Reactive Protein 16.8 H (<1.0) mg/dL Albumin/Globulin Ratio (1.60-3.17) Ratio Assessment and Plan (1) Diverticulitis Narrative/Plan: 64-year-old male with previous history of diverticulitis with recurrent episode. Last colonoscopy in August 2022 with findings of segmental colitis of the sigmoid 30 to 45 cm from anal verge with friability and mucosal erythema findings of diverticulitis related colitis. Last episode in October of this year. Currently on IV Levaquin and Flagyl with some symptom improvement. Recommend c ontinued antibiotic therapy. Continue balsalazide. Will order inflammatory markers. OutPatient colonoscopy in 4 to 6 weeks. Discussed with patient if he has continued recurrent diverticulitis may need to seek surgical evaluation. Current Visit: No Status: Acute Code(s): K57.92 - DVTRCLI OF INTEST, PART UNSP, W/O PERF OR ABSCESS W/O BLEED SNOMED Code(s): 667380055 (2) Abdominal pain Current Visit: Yes Status: Acute Code(s): R10.9 - UNSPECIFIED ABDOMINAL PAIN SNOMED Code(s): 38528344 Plan: 1. Continue symptomatic supportive care 2. Continue pain medication as needed, recommend transitioning to oral analgesic 3. Continue IV antibiotics as ordered 4. Advance to full liquid diet 5. Continue with recommendations from general surgery 6. Anticipate discharge tomorrow. Recommend 10-day course of outpatient oral antibiotics with Levaquin and Flagyl. 7. Recommend outpatient follow-up with gastroenterology Thank you for this consultation, we will continue to follow. Dr. Scarlett Sanchez I agree with the dictator's note, documented as a scribe by Ana Lilia Gresham.
--- NOTE | 2024-12-28 12:22 | P.PN ---
Subjective Progress Note Date: 12/28/24 SURGICAL PROGRESS NOTE CHIEF COMPLAINT: Diverticulitis HISTORY OF PRESENT ILLNESS: Patient reports his pain is improving. He did have to take pain medicine this morning. He denies any nausea or vomiting. He is having flatus. Denies any bowel movements. White count is down from 18-14. Afebrile. PHYSICAL EXAM: VITAL SIGNS: Reviewed. GENERAL: Well-developed in no acute distress. ABDOMEN: Soft. Nondistended. Mild Tenderness palpation suprapubic area and mildly tender left lower quadrant NEUROLOGIC: Alert and oriented. Cranial nerves II through XII grossly intact. ASSESSMENT: 1. Acute diverticulitis PLAN: - Agree with advancing diet to full liquids - [place] added for oral pain medication - Continue IV antibiotics - Repeat CBC in a.m. Physician Supervisor [employer] note has been reviewed by physician. Signing provider agrees with the documented findings, assessment, and plan of care. Attestation Patient seen and examined at bedside. States abdominal pain is somewhat improving. Leukocytosis is downward trending. Patient has been advanced to full liquid diet. Continue IV antibiotics. Will continue to follow leukocytosis. If any worsening, would recommend CT for evaluation of di verticular abscess. Otherwise, continue with current management. Meg Harris, DO Objective - Vital Signs Vital signs: Vital Signs Temp 98.5 F 12/28/24 07:00 Pulse 87 12/28/24 07:00 Resp 18 12/28/24 07:00 BP 131/87 12/28/24 07:00 Pulse Ox 97 12/28/24 07:00 FiO2 Intake & Output 12/27/24 12/28/24 12/28/24 18:59 06:59 18:59 Weight 95.708 kg Other: Voiding Method Toilet # Voids 3 - Labs CBC & Chem 7: 12/28/24 06:32 12/28/24 06:32 Labs: Abnormal Lab Results - Last 24 Hours (Table) 12/27/24 12/27/24 12/28/24 Range/Units 11:39 11:39 06:32 WBC 14.02 H (4.50-10.00) 10*3/uL MPV 8.2 L (9.5-12.2) fL Immature Gran # 0.12 H (0.00-0.04) 10*3/uL Neutrophils # 12.18 H (1.80-7.70) 10*3/uL Lymphocytes # 0.87 L (0.90-5.00) 10*3/uL ESR 22 H (0-20) mm/Hr Sodium (137-145) mmol/L Creatinine (0.66-1.25) mg/dL C-Reactive Protein 16.8 H (<1.0) mg/dL // Range/Units 06:32 WBC (4.50-10.00) 10*3/uL MPV (9.5-12.2) fL Immature Gran # (0.00-0.04) 10*3/uL Neutrophils # (1.80-7.70) 10*3/uL Lymphocytes # (0.90-5.00) 10*3/uL ESR (0-20) mm/Hr Sodium 134 L (137-145) mmol/L Creatinine 0.63 L (0.66-1.25) mg/dL C-Reactive Protein (<1.0) mg/dL
--- NOTE | 2024-12-28 12:35 | P.PN ---
Subjective Progress Note Date: 12/28/24 Subjective: Patient seen and examined at bedside. Continues to have abdominal pain but has slightly improved. Tolerating liquid diet. Had small bowel movement. Pertinent positives and negatives as discussed above, a complete review of systems was performed and all other systems are negative. Vitals Signs Reviewed. General: Nontoxic, no distress, appears at stated age Derm: Warm, dry Head: Atraumatic, normocephalic, symmetric Eyes: EOMI, no lid lag, anicteric sclera Mouth: No lip lesion, mucus membranes moist Cardiovascular: S1S2 reg, no murmur Lungs: CTA bilateral, no rhonchi, no rales, no accessory muscle use Abdominal: Soft, tender to palpation in lower abdomen and left lower quadrant, no guarding, no appreciable organomegaly Ext: No gross muscle atrophy, no edema, no contractures Neuro: CN II-XI grossly intact, no focal neuro deficits Psych: Alert, oriented, appropriate affect Data Reviewed Today: Pertinent Labs: WBC 14.02, creatinine 0.63 Imaging: No new imaging Assessment and Plan: Active: Sepsis secondary to acute diverticulitis - GI consulted, recommended to continue balsalazide 2.25 g twice daily, likely discharge tomorrow with oral antibiotics for 10 days - Will need outpatient colonoscopy in 4 to 6 weeks - Pain control with IV Dilaudid as needed, also added [place] 5 every 4 hours as needed, monitor for sedation - Continue MiraLAX 17 g daily - Continue IV levofloxacin 750 every 24 hours, IV Flagyl 500 every 8 hours - Surgery note reviewed, diet advanced to full liquids Hyponatremia, likely hypovolemic, resolving - Continue normal saline 130 cc an hour Chronic: Hypertension DVT ppx: Lovenox Code status: Full code Anticipated discharge place: Pending clinical course Anticipated discharge time: pending clinical course Objective - Vital Signs Vital signs: Vital Signs Temp 98.5 F 12/28/24 07:00 Pulse 87 12/28/24 07:00 Resp 18 12/28/24 07:00 BP 131/87 12/28/24 07:00 Pulse Ox 97 12/28/24 07:00 FiO2 Intake & Output 12/27/24 12/28/24 12/28/24 18:59 06:59 18:59 Weight 95.708 kg Other: Voiding Method Toilet # Voids 3 - Labs CBC & Chem 7: 12/28/24 06:32 12/28/24 06:32 Labs: Abnormal Lab Results - Last 24 Hours (Table) 12/27/24 12/28/24 12/28/24 Range/Units 11:39 06:32 06:32 WBC 14.02 H (4.50-10.00) 10*3/uL MPV 8.2 L (9.5-12.2) fL Immature Gran # 0.12 H (0.00-0.04) 10*3/uL Neutrophils # 12.18 H (1.80-7.70) 10*3/uL Lymphocytes # 0.87 L (0.90-5.00) 10*3/uL ESR 22 H (0-20) mm/Hr Sodium 134 L (137-145) mmol/L Creatinine 0.63 L (0.66-1.25) mg/dL
[2024-12-28] MEDS: HYDROcodone/APAP 5-325MG 1 EACH TAB PO PRN (16:32)
[2024-12-29 06:35] LABS: Basophils # (A) 0.05 10*3/uL (0.00-0.10); Basophils % (A) 0.3 %; Eosinophils # (A) 0.08 10*3/uL (0.04-0.35); Eosinophils % (A) 0.5 %; HCT 43.5 % (39.6-50.0); HGB 14.9 g/dL (13.0-17.0); Lymphocytes # (A) 0.96 10*3/uL (0.90-5.00); Lymphocytes % (A) 5.7 %; MCH 30.6 pg (27.0-32.0); MCHC 34.3 g/dL (32.0-37.0); MCV 89.3 fL (80.0-97.0); Monocytes # (A) 1.07 10*3/uL (0.20-1.00); Monocytes % (A) 6.3 %; Neutrophils # (A) 14.59 10*3/uL (1.80-7.70); Neutrophils % (A) 86.1 %; Platelet Count 323 10*3/uL (140-440); RBC 4.87 10*6/uL (4.40-5.60); RDW 12.0 % (11.5-14.5); WBC 16.93 10*3/uL (4.50-10.00)
--- NOTE | 2024-12-29 12:01 | P.PN ---
Subjective Progress Note Date: 12/29/24 Principal diagnosis: Diverticulitis This is a pleasant 64-year-old male with a past medical history of diverticulitis/colitis who presented to the emergency department on 12/25/2024 with complaints of abdominal pain and nausea and vomiting. He was discharged on oral antibiotics however patient continued to have abdominal pain and presented back to the emergency department was admitted for IV antibiotics. Patient had a CT of the abdomen pelvis with contrast from 12/25/2024 reported acute diverticulitis of the sigmoid colon without bowel obstruction abscess or free air or free fluid. Gastroenterology has been consulted for colitis/diverticulitis. He states he has had lower abdominal pain along with back pain as well as constipation and no bowel movement since Friday. He takes MiraLAX twice a day. Denies any blood per rectum. No nausea or vomiting. Was last seen in the office around October which she states was last episode of diverticulitis. Last colonoscopy was 08/30/[address] 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 Patient does take balsalazide 2250 mg p.o. twice daily. Was admitted with leukocytosis, he has been afebrile. He is currently on IV Flagyl and Levaquin. States that his pain is little bit better today. 12/28/2024 Patient is seen and examined today as a follow-up. States abdominal pain is better but he is still having lower abdominal cramping. Passing gas but no bowel movement. No nausea or vomiting. Patient's been afebrile. Leukocytosis is improving and WBC is 14 down from 18. Sed rate 22 and CRP 16.8 12/29/2024 Patient seen and examined today as a follow-up. He states abdominal pain is continuing to improve. He had some left lower abdominal cramping through the night. He is having bowel movements now. He is having loose stool, no blood noted. States that he mostly feels gassy. No nausea or vomiting. He has been afebrile. Did have a slight increase in his white blood cell count from 14 yesterday to 16.9 today. General Surgery following along. Planning on ordering CT of the abdomen and pelvis. Heart healthy diet ordered per medical team. Patient states he had some mild discomfort after eating oatmeal this morning. Objective - Vital Signs Vital signs: Vital Signs Temp 98.2 F 12/29/24 07:00 Pulse 81 12/29/24 07:00 Resp 17 12/29/24 07:00 BP 148/84 12/29/24 07:00 Pulse Ox 97 12/29/24 07:00 FiO2 Intake & Output 12/28/24 12/29/24 12/29/24 18:59 06:59 18:59 Intake Total 250 Balance 250 Intake: Oral 250 Other: Voiding Method Toilet # Voids 1 2 # Bowel Movements 1 - Exam General appearance: The patient is alert, oriented, appears in no acute distress. HET: Head is normocephalic and atraumatic. Conjunctiva pink. Sclera anicteric. Neck: Supple without lymphadenopathy. Abdomen: Soft, mild left lower quadrant tenderness, nondistended. Extremities: Normal skin color and turgor. No pedal edema Skin: No rashes, no jaundice Neurological: No focal deficits. Alert and oriented. - Labs CBC & Chem 7: 12/29/24 06:18 12/28/24 06:32 Labs: Abnormal Lab Results - Last 24 Hours (Table) 12/29/24 Range/Units 06:18 WBC 16.93 H (4.50-10.00) 10*3/uL MPV 8.4 L (9.5-12.2) fL Immature Gran # 0.18 H (0.00-0.04) 10*3/uL Neutrophils # 14.59 H (1.80-7.70) 10*3/uL Monocytes # 1.07 H (0.20-1.00) 10*3/uL Assessment and Plan (1) Diverticulitis Narrative/Plan: 64-year-old male with previous history of diverticulitis with recurrent episode. Last colonoscopy in August 2022 with findings of segmental colitis of the sigmoid 30 to 45 cm from anal verge with friability and mucosal erythema findings of diverticulitis related colitis. Last episode in October of this year. Currently on IV Levaquin and Flagyl with some symptom improvement. Recommend continued antibiotic therapy. Continue balsalazide. Will order inflammatory markers. OutPatient colonoscopy in 4 to 6 weeks. Discussed with patient if he has continued recurrent diverticulitis may need to seek surgical evaluation. Current Visit: No Status: Acute Code(s): K57.92 - DVTRCLI OF INTEST, PART UNSP, W/O PERF OR ABSCESS W/O BLEED SNOMED Code(s): 730950316 (2) Abdominal pain Current Visit: Yes Status: Acute Code(s): R10.9 - UNSPECIFIED ABDOMINAL PAIN SNOMED Code(s): 43775896 Plan: 1. Continue symptomatic supportive care 2. Continue pain medication as needed, recommend transitioning to oral analgesic 3. Continue IV antibiotics as ordered 4. Patient is on heart healthy diet 5. CT abdomen pelvis ordered by general surgery, await their recommendations 6. Recommend 10-day course of outpatient oral antibiotics with Levaquin and Flagyl. Patient already has his Levaquin 750 mg p.o. daily from prior discharge, 10 tablets verified by his . 7. Recommend outpatient follow-up with gastroenterology Thank you for this consultation, we will continue to follow. Dr. Scarlett Sanchez I agree with the dictator's note, documented as a scribe by Ana Lilia Gresham.
--- NOTE | 2024-12-29 12:17 | P.PN ---
Subjective Progress Note Date: 12/29/24 SURGICAL PROGRESS NOTE CHIEF COMPLAINT: Diverticulitis HISTORY OF PRESENT ILLNESS: Patient reports that he is feeling better. However, he still has some tenderness in the suprapubic area. He does report there was an increase in discomfort after eating oatmeal. Pain is controlled with oral pain medication. White count did go up from 14-16. Afebrile. PHYSICAL EXAM: VITAL SIGNS: Reviewed. GENERAL: Well-developed in no acute distress. ABDOMEN: Soft. Nondistended. Mild Tenderness palpation suprapubic area NEUROLOGIC: Alert and oriented. Cranial nerves II through XII grossly intact. ASSESSMENT: 1. Acute diverticulitis PLAN: -Due to increase in WBC CT scan abdomen pelvis with IV contrast ordered -Continue IV antibiotics -Further recommendations forthcoming per CAT scan results Physician Head Waiter note has been reviewed by physician. Signing provider agrees with the documented findings, assessment, and plan of care. Patient still having abdominal pain. WBC trending up. Afebrile. Abdomen-TTP, ND. Will repeat CT-AP. Continue Abx Cl [facility] [phone] Objective - Vital Signs Vital signs: Vital Signs Temp 98.2 F 12/29/24 07:00 Pulse 81 12/29/24 07:00 Resp 17 12/29/24 07:00 BP 148/84 12/29/24 07:00 Pulse Ox 97 12/29/24 07:00 FiO2 Intake & Output 12/28/24 12/29/24 12/29/24 18:59 06:59 18:59 Intake Total 250 Balance 250 Intake: Oral 250 Other: Voiding Method Toilet # Voids 1 2 # Bowel Movements 1 - Labs CBC & Chem 7: 12/29/24 06:18 12/28/24 06:32 Labs: Abnormal Lab Results - Last 24 Hours (Table) 12/29/24 Range/Units 06:18 WBC 16.93 H (4.50-10.00) 10*3/uL MPV 8.4 L (9.5-12.2) fL Immature Gran # 0.18 H (0.00-0.04) 10*3/uL Neutrophils # 14.59 H (1.80-7.70) 10*3/uL Monocytes # 1.07 H (0.20-1.00) 10*3/uL
--- NOTE | 2024-12-29 13:53 | P.PN ---
Subjective Progress Note Date: 12/29/24 Subjective: Patient seen and examined at bedside. Started having more bowel movements. Abdominal pain improved. However, did get some abdominal pain with swallowing Pertinent positives and negatives as discussed above, a complete review of systems was performed and all other systems are negative. Vitals Signs Reviewed. General: Nontoxic, no distress, appears at stated age Derm: Warm, dry Head: Atraumatic, normocephalic, symmetric Eyes: EOMI, no lid lag, anicteric sclera Mouth: No lip lesion, mucus membranes moist Cardiovascular: S1S2 reg, no murmur Lungs: CTA bilateral, no rhonchi, no rales, no accessory muscle use Abdominal: Soft, nontender, no guarding, no appreciable organomegaly Ext: No gross muscle atrophy, no edema, no contractures Neuro: CN II-XI grossly intact, no focal neuro deficits Psych: Alert, oriented, appropriate affect Data Reviewed Today: Pertinent Labs: WBC 16.93 Imaging: No new imaging Assessment and Plan: Active: Sepsis secondary to acute diverticulitis - GI consulted, recommended to continue balsalazide 2.25 g twice daily, likely discharge tomorrow with oral antibiotics for 10 days - Will need outpatient colonoscopy in 4 to 6 weeks - Pain control with IV Dilaudid as needed, also added [place] 5 every 4 hours as needed, monitor for sedation - Continue MiraLAX 17 g daily - Continue IV levofloxacin 750 every 24 hours, IV Flagyl 500 every 8 hours - Discussed with surgery, due to slightly increase in white count as well as abdominal pain with eating solids, recommending CT abdomen pelvis with contrast Hyponatremia, likely hypovolemic, resolving - Continue normal saline 130 cc an hour Chronic: Hypertension DVT ppx: Lovenox Code status: Full code Anticipated discharge place: Pending clinical course Anticipated discharge time: pending clinical course Objective - Vital Signs Vital signs: Vital Signs Temp 98.2 F 12/29/24 07:00 Pulse 81 12/29/24 07:00 Resp 17 12/29/24 07:00 BP 148/84 12/29/24 07:00 Pulse Ox 97 12/29/24 07:00 FiO2 Intake & Output 12/28/24 12/29/24 12/29/24 18:59 06:59 18:59 Intake Total 250 Balance 250 Intake: Oral 250 Other: Voiding Method Toilet # Voids 1 2 # Bowel Movements 1 - Labs CBC & Chem 7: 12/29/24 06:18 12/28/24 06:32 Labs: Abnormal Lab Results - Last 24 Hours (Table) 12/29/24 Range/Units 06:18 WBC 16.93 H (4.50-10.00) 10*3/uL MPV 8.4 L (9.5-12.2) fL Immature Gran # 0.18 H (0.00-0.04) 10*3/uL Neutrophils # 14.59 H (1.80-7.70) 10*3/uL Monocytes # 1.07 H (0.20-1.00) 10*3/uL
--- NOTE | 2024-12-29 15:34 | CT ---
EXAMINATION TYPE: CT abdomen pelvis w con CT DLP: 1273.1 mGycm, Automated exposure control for dose reduction was used. DATE OF EXAM: 12/29/2024 3:10 PM COMPARISON: CT abdomen pelvis 12/25/2024, 10/28/2024 CLINICAL INDICATION:Male, 64 years old with history of diverticulitis, worsening WBC; Abdominal pain, worsening WBC, hx of diverticulitis TECHNIQUE: Standard CT of the abdomen and pelvis following the administration of 100 cc of Isovue 3 00 IV contrast material. Coronal and sagittal reformats were performed. FINDINGS: LOWER CHEST: Unremarkable ABDOMEN LIVER: Focal regions of fatty infiltration around the gallbladder fossa. GALLBLADDER AND BILE DUCTS: The gallbladder is surgically absent. No biliary ductal dilatation. PANCREAS: Unremarkable. SPLEEN: Unremarkable. ADRENAL GLANDS: Unremarkable. KIDNEYS AND URETERS: No evidence of hydronephrosis or renal calculus. The kidneys enhance symmetrical ly. Contrast is demonstrated within both collecting systems and proximal ureters on the delayed phase . Stable right renal 1.8 cm simple cyst. No follow-up recommended. PELVIS BLADDER: Unremarkable REPRODUCTIVE: Unremarkable. ABDOMEN & PELVIS STOMACH AND BOWEL: Stomach and duodenum are unremarkable. Circumferential wall thickening with divert icula involving the sigmoid colon. There is similar stranding around the sigmoid colon extending into the left periaortic retroperitoneum. Increasing size of fluid collection with no well organized rim in the left periaortic retroperitoneum measuring 4.6 x 5.0 cm (series 201, image 56). Grossly it nel ured 3.3 x 3.4 cm. This abuts the distal abdominal aorta. There is encasement of the PRITESH. No intramur al gas identified within this region of the fluid collection however there is a adjacent more inferio r focus of gas identified. There is a tract inflammatory changes extending to the sigmoid colon (seri es 201, image 61). No evidence of bowel obstruction. PERITONEUM: No evidence of pneumoperitoneum or free fluid. VASCULATURE: Mild atherosclerotic calcifications are present throughout the abdominal aorta and its b ranches. No evidence of aortic aneurysm. Fusiform ectasia of the mid abdominal aorta measuring up to 2.9 cm. Left para-aortic fluid collection and stranding encases the PRITESH. Which appears to demonstrate enhancement. MUSCULOSKELETAL: No acute osseous abnormalities LYMPH NODES: Similar enlarged perirectal lymph node measuring up to 8 mm. Likely reactive. SOFT TISSUE/ABDOMINAL WALL: Fat filled bilateral inguinal hernias with right greater than left. There is similar stranding changes within the right inguinal hernia. IMPRESSION: 1. Complicated acute/subacute sigmoid diverticulitis with contained perforation. Increasing size of periaortic fluid collection concerning for abscess versus phlegmon. Probable abscess. This abuts the distal abdominal aorta with encasement of the inferior mesenteric artery. Underlying fistula to the s igmoid colon is difficult to exclude. Surgical consultation is recommended. 2. 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 A [place] level critical message alert has been initiated for Anahy Holland MD via the [employer] Critical Results System on 12/29/2024 3:30 PM. This message alert has been sent to Anahy bradshaw MD via the preferences provided by the clinician for the receipt of Radiology Critical Findings. Message ID [id number]. [facility], , 12/29/2024 3:32 PM
[2024-12-30 04:27] LABS: Basophils # (A) 0.04 10*3/uL (0.00-0.10); Basophils % (A) 0.2 %; Eosinophils # (A) 0.08 10*3/uL (0.04-0.35); Eosinophils % (A) 0.5 %; HCT 42.1 % (39.6-50.0); HGB 14.4 g/dL (13.0-17.0); Lymphocytes # (A) 1.06 10*3/uL (0.90-5.00); Lymphocytes % (A) 6.5 %; MCH 30.4 pg (27.0-32.0); MCHC 34.2 g/dL (32.0-37.0); MCV 89.0 fL (80.0-97.0); Monocytes # (A) 1.07 10*3/uL (0.20-1.00); Monocytes % (A) 6.5 %; Neutrophils # (A) 13.89 10*3/uL (1.80-7.70); Neutrophils % (A) 84.9 %; Platelet Count 309 10*3/uL (140-440); RBC 4.73 10*6/uL (4.40-5.60); RDW 12.1 % (11.5-14.5); WBC 16.37 10*3/uL (4.50-10.00)
[2024-12-30 04:46] LABS: African American GFR (CKD) >90 (>60 ml/min/1.73 sqM); Anion Gap 8 mmol/L; Blood Urea Nitrogen 10 mg/dL (9-20); Calcium 8.9 mg/dL (8.4-10.2); Carbon Dioxide 27 mmol/L (22-30); Chloride 98 mmol/L (98-107); Glucose 90 mg/dL (74-99); Non-African American GFR(CKD) >90 (>60 ml/min/1.73 sqM); Potassium 3.7 mmol/L (3.5-5.1); Sodium 133 mmol/L (137-145)
[2024-12-30] MEDS: PANTOPRAZOLE 40 MG TABLET PO SCH (06:15)
[2024-12-30 09:11] LABS: INR 1.1 (<1.2); Prothrombin Time 12.2 sec (10.0-12.5)
[2024-12-30] MEDS: CEFEPIME 2 GM in SODIUM CHLORIDE 0.9% 100 ML IVPB SCH (12:19)
--- NOTE | 2024-12-30 13:11 | P.PN ---
Subjective Progress Note Date: 12/30/24 Principal diagnosis: Diverticulitis This is a pleasant 64-year-old male with a past medical history of diverticulitis/colitis who presented to the emergency department on 12/25/2024 with complaints of abdominal pain and nausea and vomiting. He was discharged on oral antibiotics however patient continued to have abdominal pain and presented back to the emergency department was admitted for IV antibiotics. Patient had a CT of the abdomen pelvis with contrast from 12/25/2024 reported acute diverticulitis of the sigmoid colon without bowel obstruction abscess or free air or free fluid. Gastroenterology has been consulted for colitis/diverticulitis. He states he has had lower abdominal pain along with back pain as well as constipation and no bowel movement since Friday. He takes MiraLAX twice a day. Denies any blood per rectum. No nausea or vomiting. Was last seen in the office around October which she states was last episode of diverticulitis. Last colonoscopy was 08/30/[address] 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 Patient does take balsalazide 2250 mg p.o. twice daily. Was admitted with leukocytosis, he has been afebrile. He is currently on IV Flagyl and Levaquin. States that his pain is little bit better today. 12/28/2024 Patient is seen and examined today as a follow-up. States abdominal pain is better but he is still having lower abdominal cramping. Passing gas but no bowel movement. No nausea or vomiting. Patient's been afebrile. Leukocytosis is improving and WBC is 14 down from 18. Sed rate 22 and CRP 16.8 12/29/2024 Patient seen and examined today as a follow-up. He states abdominal pain is continuing to improve. He had some left lower abdominal cramping through the night. He is having bowel movements now. He is having loose stool, no blood noted. States that he mostly feels gassy. No nausea or vomiting. He has been afebrile. Did have a slight increase in his white blood cell count from 14 yesterday to 16.9 today. General Surgery following along. Planning on ordering CT of the abdomen and pelvis. Heart healthy diet ordered per medical team. Patient states he had some mild discomfort after eating oatmeal this morning. [id number] Patient seen and examined today as a follow-up. He had a repeat CT of the abdomen and pelvis with complicated diverticulitis with possible perforation and abscess. Patient states he still has some lower abdominal discomfort. Max temp 99.5. Denies any nausea or vomiting. States still having loose bowel movements but no blood in stool. Currently NPO. General surgery has seen patient and discussing treatment options including continued IV antibiotics, possible drainage of the abscess by interventional radiology versus surgical options. Objective - Vital Signs Vital signs: Vital Signs Temp 97.9 F 12/30/24 07:00 Pulse 82 12/30/24 07:00 Resp 16 12/30/24 07:00 BP 155/94 12/30/24 07:00 Pulse Ox 96 12/30/24 07:00 FiO2 Intake & Output 12/29/24 12/30/24 12/30/24 18:59 06:59 18:59 Intake Total 400 0 Balance 400 0 Intake: Oral 400 0 Other: Voiding Method Toilet # Voids 2 1 - Exam General appearance: The patient is alert, oriented, appears in no acute distress. HET: Head is normocephalic and atraumatic. Conjunctiva pink. Sclera anicteric. Neck: Supple without lymphadenopathy. Abdomen: Soft, mid to right lower quadrant tenderness, nondistended. Extremities: Normal skin color and turgor. No pedal edema Skin: No rashes, no jaundice Neurological: No focal deficits. Alert and oriented. - Labs CBC & Chem 7: 12/30/24 03:53 12/30/24 03:53 Labs: Abnormal Lab Results - Last 24 Hours (Table) 12/30/24 12/30/24 Range/Units 03:53 03:53 WBC 16.37 H (4.50-10.00) 10*3/uL MPV 8.4 L (9.5-12.2) fL Immature Gran # 0.23 H (0.00-0.04) 10*3/uL Neutrophils # 13.89 H (1.80-7.70) 10*3/uL Monocytes # 1.07 H (0.20-1.00) 10*3/uL Sodium 133 L (137-145) mmol/L Creatinine 0.57 L (0.66-1.25) mg/dL Assessment and Plan (1) Diverticulitis Narrative/Plan: 64-year-old male with previous history of diverticulitis with recurrent episode. Last colonoscopy in August 2022 with findings of segmental colitis of the sigmoid 30 to 45 cm from anal verge with friability and mucosal erythema findings of diverticulitis related colitis. Last episode in October of this year. Currently on IV Levaquin and Flagyl with some symptom improvement. Recommend continued antibiotic therapy. Continue balsalazide. Will order inflammatory markers. OutPatient colonoscopy in 4 to [address] abdomen pelvis with concerns for abscess, possible perforation. Ge neral surgery following. Continue with their recommendations. Consult to infectious disease for further recommendations on antibiotic recommendations. Current Visit: No Status: Acute Code(s): K57.92 - DVTRCLI OF INTEST, PART UNSP, W/O PERF OR ABSCESS W/O BLEED SNOMED Code(s): 183307961 (2) Abdominal pain Current Visit: Yes Status: Acute Code(s): R10.9 - UNSPECIFIED ABDOMINAL PAIN SNOMED Code(s): 61657765 Plan: 1. Continue symptomatic supportive care 2. Continue pain medication as needed, recommend transitioning to oral analgesic 3. Continue IV antibiotics as ordered. Will consult infectious disease for further recommendations of antibiotic therapy. 4. Keep NPO 5. Continue with recommendations from general surgery Thank you for this consultation, we will continue to follow. Dr. Scarlett Sanchez I agree with the dictator's note, documented as a scribe by Ana Lilia Gresham.
--- NOTE | 2024-12-30 13:52 | P.PN ---
Subjective Progress Note Date: 12/30/24 Subjective: Patient seen and examined at bedside. Still hurts lower abdomen pain. Pertinent positives and negatives as discussed above, a complete review of systems was performed and all other systems are negative. Vitals Signs Reviewed. General: Nontoxic, no distress, appears at stated age Derm: Warm, dry Head: Atraumatic, normocephalic, symmetric Eyes: EOMI, no lid lag, anicteric sclera Mouth: No lip lesion, mucus membranes moist Cardiovascular: S1S2 reg, no murmur Lungs: CTA bilateral, no rhonchi, no rales, no accessory muscle use Abdominal: Soft, tender to palpation in the suprapubic and left lower quadrant area, no guarding, no appreciable organomegaly Ext: No gross muscle atrophy, no edema, no contractures Neuro: CN II-XI grossly intact, no focal neuro deficits Psych: Alert, oriented, appropriate affect Data Reviewed Today: Pertinent Labs: WBC 16.37, sodium 133, creatinine 0.57 Imaging: CT abdomen pelvis shows complicated acute/subacute sigmoid diverticulitis with contained perforation, increasing size of periaortic fluid collection concerning for abscess versus phlegmon this abuts the distal abdominal aorta with encasement of the inferior mesenteric artery, underlying fistula to the sigmoid colon difficult to exclude. Assessment and Plan: Active: Sepsis secondary to acute diverticulitis - GI note reviewed, ID consulted as well - Had discussion with surgery, recommending IR drainage but IR unable to do it due to the location of abscess. Patient may need surgical intervention. - Pain control with IV Dilaudid as needed, also added [place] 5 every 4 hours as needed, monitor for sedation - Continue IV cefepime 2 g IV every 8 hours, IV Flagyl 500 every 8 hours - Patient remains n.p.o. Hyponatremia, likely hypovolemic, resolving - Continue normal saline 130 cc an hour Chronic: Hypertension DVT ppx: Lovenox Code status: Full code Anticipated discharge place: Pending clinical course Anticipated discharge time: pending clinical course Objective - Vital Signs Vital signs: Vital Signs Temp 97.9 F 12/30/24 07:00 Pulse 87 12/30/24 08:00 Resp 16 12/30/24 08:00 BP 155/94 12/30/24 07:00 Pulse Ox 96 12/30/24 07:00 FiO2 Intake & Output 06/12/30/24 12/30/24 18:59 06:59 18:59 Intake Total 400 0 Balance 400 0 Intake: Oral 400 0 Other: Voiding Method Toilet Toilet # Voids 2 1 - Labs CBC & Chem 7: 12/30/24 03:53 12/30/24 03:53 Labs: Abnormal Lab Results - Last 24 Hours (Table) 12/30/24 12/30/24 Range/Units 03:53 03:53 WBC 16.37 H (4.50-10.00) 10*3/uL MPV 8.4 L (9.5-12.2) fL Immature Gran # 0.23 H (0.00-0.04) 10*3/uL Neutrophils # 13.89 H (1.80-7.70) 10*3/uL Monocytes # 1.07 H (0.20-1.00) 10*3/uL Sodium 133 L (137-145) mmol/L Creatinine 0.57 L (0.66-1.25) mg/dL
--- NOTE | 2024-12-30 14:05 | P.PN ---
Subjective Progress Note Date: 12/30/24 SURGICAL PROGRESS NOTE CHIEF COMPLAINT: Diverticulitis HISTORY OF PRESENT ILLNESS: Patient continues with abdominal pain suprapubic area. White count remains the same at 16. CT scan abdomen and pelvis reports complicated acute/subacute sigmoid diverticulitis with contained perforation. Increasing size of periaortic fluid collection concerning for abscess versus phlegmon. Probable abscess. This is abuts the distal abdominal aorta with encasement of the inferior mesenteric artery. Underlying fistula to the sigmoid colon is difficult to exclude. Afebrile. PHYSICAL EXAM: VITAL SIGNS: Reviewed. GENERAL: Well-developed in no acute distress. ABDOMEN: Soft. Nondistended. Tenderness palpation suprapubic area NEUROLOGIC: Alert and oriented. Cranial nerves II through XII grossly intact. ASSESSMENT: 1. Acute diverticulitis now with CT scan evidence of contained perforation and increased size of fluid collection concerning for abscess PLAN: -Dr. Harris did discuss CAT scan findings and option of surgical intervention. Patient evaluated by IR service and is not a candidate for IR drainage. -Await patient and family decision regarding surgical intervention -Continue IV antibiotics -Consult infectious disease service -Repeat CBC in a.m. -Continue full liquid diet Physician Composition Worker note has been reviewed by physician. Signing provider agrees with the documented findings, assessment, and plan of care. Attestation Patient seen and examined at bedside on 12/30/2024. Significant amount of time was taken to speak with the patient, his and his son Teo. With significant finding of abscess on CT, interventional radiology was consulted. Interventional radiology does mention that he is not a candidate for IR drainage. Based on the size of the abscess and failure of initial antibiotic regimen, infectious disease has been placed on the case for changing IV antibiot ics as the patient also is noted to have a penicillin and sulfa allergy. I did discuss surgical intervention with the patient and his family quite in depth. At this point with an active abscess, any acute surgical intervention would require colostomy creation most likely. It is reasonable with changing antibiotics to continue to observe and follow the progress and possible resolution of the abscess as the patient is stable and no current signs of sepsis are noted. At this point, patient would like to discuss with his family prior to making any decision and we will continue with IV antibiotics. Recommendations will change based on patient's decision process. Meg Harris DO Objective - Vital Signs Vital signs: Vital Signs Temp 97.9 F 12/30/24 07:00 Pulse 87 12/30/24 08:00 Resp 16 12/30/24 08:00 BP 155/94 12/30/24 07:00 Pulse Ox 96 12/30/24 07:00 FiO2 Intake & Output 12/29/24 12/30/24 12/30/24 18:59 06:59 18:59 Intake Total 400 0 Balance 400 0 Intake: Oral 400 0 Other: Voiding Method Toilet Toilet # Voids 2 1 - Labs CBC & Chem 7: 12/31/24 04:56 12/31/24 04:52 Labs: Abnormal Lab Results - Last 24 Hours (Table) 12/30/24 12/30/24 Range/Units 03:53 03:53 WBC 16.37 H (4.50-10.00) 10*3/uL MPV 8.4 L (9.5-12.2) fL Immature Gran # 0.23 H (0.00-0.04) 10*3/uL Neutrophils # 13.89 H (1.80-7.70) 10*3/uL Monocytes # 1.07 H (0.20-1.00) 10*3/uL Sodium 133 L (137-145) mmol/L Creatinine 0.57 L (0.66-1.25) mg/dL
[2024-12-31 05:54] LABS: Basophils # (A) 0.06 10*3/uL (0.00-0.10); Basophils % (A) 0.4 %; Eosinophils # (A) 0.12 10*3/uL (0.04-0.35); Eosinophils % (A) 0.9 %; HCT 39.8 % (39.6-50.0); HGB 13.8 g/dL (13.0-17.0); Lymphocytes # (A) 1.29 10*3/uL (0.90-5.00); Lymphocytes % (A) 9.3 %; MCH 31.0 pg (27.0-32.0); MCHC 34.7 g/dL (32.0-37.0); MCV 89.4 fL (80.0-97.0); Monocytes # (A) 0.98 10*3/uL (0.20-1.00); Monocytes % (A) 7.1 %; Neutrophils # (A) 10.97 10*3/uL (1.80-7.70); Neutrophils % (A) 78.8 %; Platelet Count 327 10*3/uL (140-440); RBC 4.45 10*6/uL (4.40-5.60); RDW 12.2 % (11.5-14.5); WBC 13.90 10*3/uL (4.50-10.00)
[2024-12-31 06:07] LABS: African American GFR (CKD) >90 (>60 ml/min/1.73 sqM); Anion Gap 9 mmol/L; Blood Urea Nitrogen 9 mg/dL (9-20); Calcium 8.6 mg/dL (8.4-10.2); Carbon Dioxide 25 mmol/L (22-30); Chloride 100 mmol/L (98-107); Glucose 78 mg/dL (74-99); Non-African American GFR(CKD) >90 (>60 ml/min/1.73 sqM); Potassium 3.7 mmol/L (3.5-5.1); Sodium 134 mmol/L (137-145)
--- NOTE | 2024-12-31 08:27 | P.PN ---
Subjective Progress Note Date: 12/31/24 Principal diagnosis: Diverticulitis This is a pleasant 64-year-old male with a past medical history of diverticulitis/colitis who presented to the emergency department on 12/25/2024 with complaints of abdominal pain and nausea and vomiting. He was discharged on oral antibiotics however patient continued to have abdominal pain and presented back to the emergency department was admitted for IV antibiotics. Patient had a CT of the abdomen pelvis with contrast from 12/25/2024 reported acute diverticulitis of the sigmoid colon without bowel obstruction abscess or free air or free fluid. Gastroenterology has been consulted for colitis/diverticulitis. He states he has had lower abdominal pain along with back pain as well as constipation and no bowel movement since Friday. He takes MiraLAX twice a day. Denies any blood per rectum. No nausea or vomiting. Was last seen in the office around October which she states was last episode of diverticulitis. Last colonoscopy was 08/30/[address] 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 Patient does take balsalazide 2250 mg p.o. twice daily. Was admitted with leukocytosis, he has been afebrile. He is currently on IV Flagyl and Levaquin. States that his pain is little bit better today. 12/28/2024 Patient is seen and examined today as a follow-up. States abdominal pain is better but he is still having lower abdominal cramping. Passing gas but no bowel movement. No nausea or vomiting. Patient's been afebrile. Leukocytosis is improving and WBC is 14 down from 18. Sed rate 22 and CRP 16.8 12/29/2024 Patient seen and examined today as a follow-up. He states abdominal pain is continuing to improve. He had some left lower abdominal cramping through the night. He is having bowel movements now. He is having loose stool, no blood noted. States that he mostly feels gassy. No nausea or vomiting. He has been afebrile. Did have a slight increase in his white blood cell count from 14 yesterday to 16.9 today. General Surgery following along. Planning on ordering CT of the abdomen and pelvis. Heart healthy diet ordered per medical team. Patient states he had some mild discomfort after eating oatmeal this morning. 12/30/2024 Patient seen and examined today as a follow-up. He had a repeat CT of the abdomen and pelvis with complicated diverticulitis with possible perforation and abscess. Patient states he still has some lower abdominal discomfort. Max temp 99.5. Denies any nausea or vomiting. States still having loose bowel movements but no blood in stool. Currently NPO. General surgery has seen patient and discussing treatment options including continued IV antibiotics, possible drainage of the abscess by interventional radiology versus surgical options. 12/31/2024 Patient seen and examined today as a follow-up. States abdominal pain continues to improve. Infectious disease has seen him and changed his Levaquin to cefepime. He has been afebrile. No nausea or vomiting. Tolerating full liquid diet. He states tentative plan is for surgery on Friday. Leukocytosis improving WBC 13.9. Objective - Vital Signs Vital signs: Vital Signs Temp 98.1 F 12/31/24 01:20 Pulse 84 12/31/24 01:20 Resp 14 12/31/24 01:20 BP 124/82 12/31/24 01:20 Pulse Ox 94 L 12/31/24 01:20 FiO2 Intake & Output 12/30/24 12/30/24 12/31/24 06:59 18:59 06:59 Intake Total 20 Balance 20 Intake: Oral 20 Other: Voiding Method Toilet # Voids 1 - Exam General appearance: The patient is alert, oriented, appears in no acute distress. HET: Head is normocephalic and atraumatic. Conjunctiva pink. Sclera anicteric. Neck: Supple without lymphadenopathy. Abdomen: Soft, mid to right lower quadrant tenderness, nondistended. Extremities: Normal skin color and turgor. No pedal edema Skin: No rashes, no jaundice Neurological: No focal deficits. Alert and oriented. - Labs CBC & Chem 7: 12/31/24 04:56 12/31/24 04:52 Labs: Abnormal Lab Results - Last 24 Hours (Table) 12/31/24 12/31/24 Range/Units 04:52 04:56 WBC 13.90 H (4.50-10.00) 10*3/uL MPV 8.7 L (9.5-12.2) fL Immature Gran # 0.48 H (0.00-0.04) 10*3/uL Neutrophils # 10.97 H (1.80-7.70) 10*3/uL Sodium 134 L (137-145) mmol/L Creatinine 0.57 L (0.66-1.25) mg/dL Assessment and Plan (1) Diverticulitis Narrative/Plan: 64-year-old male with previous history of diverticulitis with recurrent episode. Last colonoscopy in August 2022 with findings of segmental colitis of the sigmoid 30 to 45 cm from anal verge with friability and mucosal erythema findings of diverticulitis related colitis. Last episode in October of this year. Currently on IV Levaquin and Flagyl with some symptom improvement. Recommend continued antibiotic therapy. Continue balsalazide. Will order inflammatory markers. OutPatient colonoscopy in 4 [address] abdomen pelvis with concerns for abscess, possible perforation. General surgery following. Continue with their recommendations. Consult to infectious disease for further recommendations on antibiotic recommendations. Current Visit: No Status: Acute Code(s): K57.92 - DVTRCLI OF INTEST, PART UN SP, W/O PERF OR ABSCESS W/O BLEED SNOMED Code(s): 017493334 (2) Abdominal pain Current Visit: Yes Status: Acute Code(s): R10.9 - UNSPECIFIED ABDOMINAL PAIN SNOMED Code(s): 95738205 Plan: 1. Continue symptomatic supportive care 2. Continue pain medication as needed, recommend transitioning to oral analgesic 3. Infectious disease on consultation, appreciate recommendations for antibiotic therapy 4. Diet per recommendations from general surgery 5. Continue with recommendations from general surgery. Patient states tentative plan for surgery on Friday. Thank you for this consultation, we will sign off at this time and resume care on 01/03/2025 Dr. Scarlett Sanchez I agree with the dictator's note, documented as a scribe by Ana Lilia Gresham.
--- NOTE | 2024-12-31 15:20 | P.PN ---
Subjective Progress Note Date: 12/31/24 SURGICAL PROGRESS NOTE CHIEF COMPLAINT: Diverticulitis HISTORY OF PRESENT ILLNESS: Patient reports he is feeling better. He reports his pain has improved. He tolerated the full liquids. White count is down from 16-13. Afebrile. Infectious disease started patient on cefepime. PHYSICAL EXAM: VITAL SIGNS: Reviewed. GENERAL: Well-developed in no acute distress. ABDOMEN: Soft. Nondistended. Currently nontender NEUROLOGIC: Alert and oriented. Cranial nerves II through XII grossly intact. ASSESSMENT: 1. Acute diverticulitis now with CT scan evidence of contained perforation and increased size of fluid collection concerning for abscess PLAN: -Continue IV antibiotics per infectious disease -Repeat CBC in a.m. -Plan to repeat CT scan abdomen pelvis with IV contrast on Friday -Ensure added for protein supplement -Continue full liquids Physician Clinical Research Manager note has been reviewed by physician. Signing provider agrees with the documented findings, assessment, and plan of care. Objective - Vital Signs Vital signs: Vital Signs Temp 98.5 F 12/31/24 13:30 Pulse 82 12/31/24 13:30 Resp 16 12/31/24 13:30 BP 124/68 12/31/24 13:30 Pulse Ox 94 L 12/31/24 13:30 FiO2 Intake & Output 12/30/24 12/31/24 12/31/24 18:59 06:59 18:59 Intake Total 20 Balance 20 Intake: Oral 20 Other: Voiding Method Toilet - Labs CBC & Chem 7: 12/31/24 04:56 12/31/24 04:52 Labs: Abnormal Lab Results - Last 24 Hours (Table) 12/31/24 12/31/24 Range/Units 04:52 04:56 WBC 13.90 H (4.50-10.00) 10*3/uL MPV 8.7 L (9.5-12.2) fL Immature Gran # 0.48 H (0.00-0.04) 10*3/uL Neutrophils # 10.97 H (1.80-7.70) 10*3/uL Sodium 134 L (137-145) mmol/L Creatinine 0.57 L (0.66-1.25) mg/dL
[2024-12-31 15:22] VITALS: BMI 33.0
--- NOTE | 2024-12-31 16:07 | P.PN ---
Subjective Progress Note Date: 12/31/24 Subjective: Patient seen and examined at bedside. Still hurts lower abdomen pain. Pertinent positives and negatives as discussed above, a complete review of systems was performed and all other systems are negative. Vitals Signs Reviewed. Gen: In NAD, non-toxic HEENT: normocephalic, atraumatic, hearing acuity is intant, mucous membranes moist CVS: perfusing all extremities well, no pitting edema, Respiratory: symmetric chest expansion, no accessory muscle use, GI: soft, NTTP, ND, : no suprapubic tenderness, no CVA tenderness MSK/Derm: no rashes, cyanosis Neuro: CN II-XII intact, no motor weakness, Psych: cooperative, euthymic mood, judgment and insight is intact Data Reviewed Today: Pertinent Labs: WBC 16.37, sodium 133, creatinine 0.57 Imaging: CT abdomen pelvis shows complicated acute/subacute sigmoid diverticulitis with contained perforation, increasing size of periaortic fluid collection concerning for abscess versus phlegmon this abuts the distal abdominal aorta with encasement of the inferior mesenteric artery, underlying fistula to the sigmoid colon difficult to exclude. Assessment and Plan: Active: Sepsis secondary to acute diverticulitis - GI note reviewed, ID consulted as well -Surgery consultation appreciated, recommending IR drainage but IR unable to do it due to the location of abscess. Patient may need surgical intervention. - Pain control with IV Dilaudid as needed, also added [place] 5 every 4 hours as needed, monitor for sedation - Continue IV cefepime 2 g IV every 8 hours, IV Flagyl 500 every 8 hours - Patient remains n.p.o. Hyponatremia, likely hypovolemic, resolving - Continue normal saline 130 cc an hour Chronic: Hypertension DVT ppx: Lovenox Code status: Full code Anticipated discharge place: Pending clinical course Anticipated discharge time: pending clinical course Objective - Vital Signs Vital signs: Vital Signs Temp 98.5 F 12/31/24 13:30 Pulse 82 12/31/24 13:30 Resp 16 12/31/24 13:30 BP 124/68 12/31/24 13:30 Pulse Ox 94 L 12/31/24 13:30 FiO2 Intake & Output 12/30/24 12/31/24 12/31/24 18:59 06:59 18:59 Intake Total 20 Balance 20 Weight 95.708 kg Intake: Oral 20 Other: Voiding Method Toilet - Labs CBC & Chem 7: 12/31/24 04:56 12/31/24 04:52 Labs: Abnormal Lab Results - Last 24 Hours (Table) 12/31/24 12/31/24 Range/Units 04:52 04:56 WBC 13.90 H (4.50-10.00) 10*3/uL MPV 8.7 L (9.5-12.2) fL Immature Gran # 0.48 H (0.00-0.04) 10*3/uL Neutrophils # 10.97 H (1.80-7.70) 10*3/uL Sodium 134 L (137-145) mmol/L Creatinine 0.57 L (0.66-1.25) mg/dL
--- NOTE | 2024-12-31 16:10 | P.CONS ---
History of Present Illness - Reason for Consult Consult date: 12/30/24 Diverticulitis abscess antibiotic recommendation Requesting physician: Ana Lilia Dumont - Chief Complaint Abdominal pain X DAYS - History of Present Illness Patient is a 64-year-old male with a past medical history significant for hypertension diverticulitis former smoker presenting to the hospital 4 days ago for evaluation of abdominal pain in this patient apparently recently outpatient diagnosis of diverticulitis and seem to have a trace amount of outpatient ordered by therapy on presentation to the hospital patient was afebrile and no fever have been called subsequently patient was not tachycardic hypotensive or hypoxic no need for supplemental oxygen patient did have a white count of 19.62 on admission creatinine 0.7 liver enzymes normal patient has been evaluated by primary GI and surgical team and the patient has been treated with Levaquin and Flagyl patient did have a CT abdominal pelvis repeated yesterday afternoon which mention complicated acute/subacute diverticulitis with contained perforation and increasing size of the periaortic fluid collection concerning for abscess that has prompted this consultation, patient at this point denies having any fever or any chills he is breathing comfortably is currently on room air denies having any chest pain shortness of breath or cough has been complaining of abdominal distention lower abdominal pain moderate intensity without radiation some nausea but no vomiting or diarrhea Review of Systems Positive point and negatives has been mentioned in the HPI, complete review of systems was performed and all other systems are negative Past Medical History Past Medical History: Hypertension Additional Past Medical History / Comment(s): vertigo, diverticultitis. HX BLOOD IN STOOL History of Any Multi-Drug Resistant Organisms: None Reported Past Surgical History: Adenoidectomy, Appendectomy, Cholecystectomy, Heart Catheterization, Hernia Repair, Orthopedic Surgery, Tonsillectomy Additional Past Surgical History / Comment(s): right shoulder SX, COLONOSCOPY Past Anesthesia/Blood Transfusion Reactions: No Reported Reaction Past Psychological History: No Psychological Hx Reported Smoking Status: Former smoker Past Alcohol Use History: Rare Additional Past Alcohol Use History / Comment(s): started 1976 stopped07/17/2015 1/2 ppd Past Drug Use History: None Reported - Past Family History Mother Family Medical History: Coronary Artery Disease (CAD), Diabetes Mellitus Father Family Medical History: Coronary Artery Disease (CAD) Additional Family Medical History / Comment(s): "lower aorta bust" Medications and Allergies Home Medications Medication Instructions Recorded Confirmed Type Losartan Potassium [Cozaar] 25 mg PO DAILY 08/30/22 12/26/24 History Levofloxacin [Levaquin] 750 mg PO DAILY #10 tab 12/25/24 12/26/24 Rx Balsalazide Disodium 2,250 mg PO BID 12/26/24 12/26/24 History Dicyclomine [Bentyl] 10 mg PO TID 12/26/24 12/26/24 History Famotidine [Pepcid] 20 mg PO BID-W/MEALS PRN 12/26/24 12/26/24 History amLODIPine [Norvasc] 5 mg PO DAILY 12/26/24 12/26/24 History Allergies Allergy/AdvReac Type Severity Reaction Status Date / Time meperidine HCl [From Demerol] Allergy Intermediate Rash/Hives Verified 12/26/24 11:33 Penicillins Allergy Intermediate Rash/Hives Verified 12/26/24 11:33 Sulfa (Sulfonamide Allergy Rash/Hives Verified 12/26/24 11:33 Antibiotics) sulfamethoxazole Allergy Rash/Hives Verified 12/26/24 11:33 [From Bactrim] trimethoprim [From Bactrim] Allergy Rash/Hives Verified 12/26/24 11:33 Physical Exam Vitals: Vital Signs Temp Pulse Resp BP Pulse Ox 12/30/24 07:00 97.9 F 82 16 155/94 96 12/30/24 01:09 99.5 F 83 17 157/89 94 L 12/29/24 19:01 99.4 F 68 17 150/78 95 12/29/24 14:00 17 Intake and Output 12/29/24 12/30/24 12/30/24 22:59 06:59 14:59 Intake Total 0 Balance 0 Intake: Oral 0 Other: # Voids 1 1 GENERAL DESCRIPTION: Age male lying in bed, no distress. No tachypnea or accessory muscle of respiration use. HEENT: Shows Pallor , no scleral icterus. Oral mucous membrane is dry. NECK: Trachea central, no thyromegaly. LUNGS: Unlabored breathing. Clear to auscultation anteriorly. No wheeze or crackle. HEART: S1, S2, regular rate and rhythm. No loud murmur ABDOMEN: Soft, mild distention and left-sided tenderness EXTREMITIES: No edema of feet. SKIN: No rash, no masses palpable. NEUROLOGICAL: The patient is awake, alert, oriented x3, mood and affect normal. Results CBC & Chem 7: 12/31/24 04:56 12/31/24 04:52 Labs: Abnormal Lab Results - Last 24 Hours (Table) 12/30/24 12/30/24 Range/Units 03:53 03:53 WBC 16.37 H (4.50-10.00) 10*3/uL MPV 8.4 L (9.5-12.2) fL Immature Gran # 0.23 H (0.00-0.04) 10*3/uL Neutrophils # 13.89 H (1.80-7.70) 10*3/uL Monocytes # 1.07 H (0.20-1.00) 10*3/uL Sodium 133 L (137-145) mmol/L Creatinine 0.57 L (0.66-1.25) mg/dL Assessment and Plan (1) Perforation of sigmoid colon due to diverticulitis Current Visit: Yes Status: Acute Code(s): K57.20 - DVTRCLI OF LG INT W PERFORATION AND ABSCESS W/O BLEEDING SNOMED Code(s): 9935378448964283 (2) Leukocytosis Current Visit: Yes Status: Acute Code(s): D72.829 - ELEVATED WHITE BLOOD CELL COUNT, UNSPECIFIED SNOMED Code(s): 219633100 (3) Allergy to multiple antibiotics Current Visit: Yes Status: Acute Code(s): Z88.1 - ALLERGY STATUS TO OTHER ANTIBIOTIC AGENTS SNOMED Code(s): 820675077 Plan: 1patient presented to hospital with abdominal pain and this patient has been diagnosed with diverticulitis failing outpatient oral Levaquin therapy now seem to be have not responded very well to the IV Levaquin as well as oral Flagyl and will need to cover for more resistant gram-negative pathogen as the patient did have evidence of worsening diverticulitis/abscess 2patient with multiple antibiotic ALLERGIES that would limit the number of antibiotic safe to use 3will discontinue Levaquin 4will start the patient on cefepime 2 g every 8 hours and continue with IV Flagyl Patient and the has multiple questions regarding surgical versus nonsurgical options most the question has been answered in layman terms we will see response to the change in therapy We will follow on clinical condition and cultures to further adjust medication if needed Thank you for this consultation we will follow the patient along with you Dictation was produced using [employer] dictation software. please excuse any grammatical, word or spelling errors. Time with Patient: Greater than 30
--- NOTE | 2024-12-31 16:13 | P.PN ---
Subjective Progress Note Date: 12/31/24 Principal diagnosis: Reason for follow-up diverticulitis/intra-abdominal abscess Patient is a 64-year male past medical history of hypertension diverticulitis admitted to the hospital with worsening diverticulitis failing outpatient oral Levaquin therapy seem to have not responded to the IV Levaquin and Flagyl as the patient had worsening diverticulitis and abscess formation on the CT prompted this consultation. On today's evaluation that is 12/31/2024,the patient denies any fever or any chills, patient is breathing comfortably on room air, the patient denies chest pain shortness of breath and no significant cough, patient denies any nausea vomiting abdominal pain slight decrease in intensity mention feeling slightly better. The patient white count is down to 13.90, creatinine 0.57 Objective - Vital Signs Vital signs: Vital Signs Temp 98.5 F 12/31/24 13:30 Pulse 82 12/31/24 13:30 Resp 16 12/31/24 13:30 BP 124/68 12/31/24 13:30 Pulse Ox 94 L 12/31/24 13:30 FiO2 Intake & Output 12/30/24 12/31/24 12/31/24 18:59 06:59 18:59 Intake Total 20 Balance 20 Weight 95.708 kg Intake: Oral 20 Other: Voiding Method Toilet - Exam GENERAL DESCRIPTION: Middle-age male lying in bed in no distress RESPIRATORY SYSTEM: Unlabored breathing , decreased breath sounds at bases HEART: S1 S2 regular rate and rhythm , ABDOMEN: Soft , no tenderness EXTREMITIES: No edema feet - Labs CBC & Chem 7: 12/31/24 04:56 12/31/24 04:52 Labs: Abnormal Lab Results - Last 24 Hours (Table) 12/31/24 12/31/24 Range/Units 04:52 04:56 WBC 13.90 H (4.50-10.00) 10*3/uL MPV 8.7 L (9.5-12.2) fL Immature Gran # 0.48 H (0.00-0.04) 10*3/uL Neutrophils # 10.97 H (1.80-7.70) 10*3/uL Sodium 134 L (137-145) mmol/L Creatinine 0.57 L (0.66-1.25) mg/dL Assessment and Plan (1) Perforation of sigmoid colon due to diverticulitis Current Visit: Yes Status: Acute Code(s): K57.20 - DVTRCLI OF LG INT W PERFORATION AND ABSCESS W/O BLEEDING SNOMED Code(s): 5344623477354892 (2) Leukocytosis Current Visit: Yes Status: Acute Code(s): D72.829 - ELEVATED WHITE BLOOD CELL COUNT, UNSPECIFIED SNOMED Code(s): 880457720 (3) Allergy to multiple antibiotics Current Visit: Yes Status: Acute Code(s): Z88.1 - ALLERGY STATUS TO OTHER ANTIBIOTIC AGENTS SNOMED Code(s): 631968128 Plan: 1patient presented to hospital with abdominal pain and this patient has been diagnosed with diverticulitis failing outpatient oral Levaquin therapy now seem to be have not responded very well to the IV Levaquin as well as oral Flagyl as the patient did have evidence of worsening diverticulitis/abscess 2patient with multiple antibiotic ALLERGIES that would limit the number of antibiotic safe to use 3patient in bed has been switched over to cefepime 2 g every 8 hours and will was continued patient white count is trending down and patient feeling slightly better patient care has been discussed again with general surgery who is planning to do repeat CAT scan on Friday to see response to the currently by therapy if improvement may continue with IV otherwise will need to go for surgery Patient and the has multiple questions those has been answered in layman term Dictation was produced using [employer] dictation software. please excuse any grammatical, word or spelling errors. Time with Patient: Less than 30
[2025-01-01 05:10] LABS: Basophils # (A) 0.10 10*3/uL (0.00-0.10); Basophils % (A) 0.9 %; Eosinophils # (A) 0.28 10*3/uL (0.04-0.35); Eosinophils % (A) 2.4 %; HCT 40.6 % (39.6-50.0); HGB 14.0 g/dL (13.0-17.0); Lymphocytes # (A) 1.54 10*3/uL (0.90-5.00); Lymphocytes % (A) 13.3 %; MCH 31.0 pg (27.0-32.0); MCHC 34.5 g/dL (32.0-37.0); MCV 90.0 fL (80.0-97.0); Monocytes # (A) 0.74 10*3/uL (0.20-1.00); Monocytes % (A) 6.4 %; Neutrophils # (A) 8.54 10*3/uL (1.80-7.70); Neutrophils % (A) 73.4 %; Platelet Count 348 10*3/uL (140-440); RBC 4.51 10*6/uL (4.40-5.60); RDW 12.2 % (11.5-14.5); WBC 11.62 10*3/uL (4.50-10.00)
[2025-01-01 05:32] LABS: African American GFR (CKD) >90 (>60 ml/min/1.73 sqM); Anion Gap 7 mmol/L; Blood Urea Nitrogen 7 mg/dL (9-20); Calcium 8.9 mg/dL (8.4-10.2); Carbon Dioxide 27 mmol/L (22-30); Chloride 102 mmol/L (98-107); Glucose 82 mg/dL (74-99); Non-African American GFR(CKD) >90 (>60 ml/min/1.73 sqM); Potassium 4.2 mmol/L (3.5-5.1); Sodium 136 mmol/L (137-145)
--- NOTE | 2025-01-01 12:10 | P.PN ---
Subjective Patient seen and evaluated bedside patient doing well minimal pain no nausea no vomiting. Objective - Vital Signs Vital signs: Vital Signs Temp 98.3 F 01/01/25 00:38 Pulse 86 01/01/25 08:00 Resp 18 01/01/25 08:00 BP 127/79 01/01/25 08:00 Pulse Ox 97 01/01/25 08:00 FiO2 Intake & Output 12/31/24 01/01/25 01/01/25 18:59 06:59 18:59 Intake Total 1860 240 Balance 1860 240 Weight 95.708 kg Intake: Intake, IV Titration 1860 Amount Cefepime 2 gm In Sodium 200 Chloride 0.9% 100 ml @ 25 mls/hr IVPB Q8H [facility] Rx#: [id number] Sodium Chloride 0.9% 1, 1560 000 ml @ 130 mls/hr IV . Q7H42M [facility] Rx#:[id number] metroNIDAZOLE-NS PMX 500 100 mg In Saline 1 100ml.bag @ 100 mls/hr IVPB Q8HR [facility] Rx#:[id number] Oral 240 Other: # Voids 3 - Exam General No acute distress alert and oriented x 3 Cardiovascular regular in rhythm Pulmonary nonlabored breathing Abdomen is soft, minimally tender to palpation in the suprapubic area no guarding or rebound tenderness protuberant abdomen - Labs CBC & Chem 7: 01/01/25 04:16 01/01/25 04:16 Labs: Abnormal Lab Results - Last 24 Hours (Table) 01/01/25 01/01/25 Range/Units 04:16 04:16 WBC 11.62 H (4.50-10.00) 10*3/uL MPV 8.8 L (9.5-12.2) fL Immature Gran # 0.42 H (0.00-0.04) 10*3/uL Neutrophils # 8.54 H (1.80-7.70) 10*3/uL Sodium 136 L (137-145) mmol/L BUN 7 L (9-20) mg/dL Creatinine 0.50 L (0.66-1.25) mg/dL Assessment and Plan Assessment: 64-year-old male with diverticulitis with pelvic abscess Continue IV antibiotics per infectious disease CT scan of the abdomen pelvis will be performed tomorrow January [address] scan and physical exam findings Time with Patient: Less than 30
[2025-01-01] MEDS ORDERED: ALPRAZolam 0.25 MG TAB PO PRN (14:27)
--- NOTE | 2025-01-01 14:36 | P.PN ---
Subjective Progress Note Date: 01/01/25 Subjective: Patient seen and examined at bedside. Still hurts lower abdomen pain. Pertinent positives and negatives as discussed above, a complete review of systems was performed and all other systems are negative. Vitals Signs Reviewed. Gen: In NAD, non-toxic HEENT: normocephalic, atraumatic, hearing acuity is intant, mucous membranes moist CVS: perfusing all extremities well, no pitting edema, Respiratory: symmetric chest expansion, no accessory muscle use, GI: soft, NTTP, ND, : no suprapubic tenderness, no CVA tenderness MSK/Derm: no rashes, cyanosis Neuro: CN II-XII intact, no motor weakness, Psych: cooperative, euthymic mood, judgment and insight is intact Data Reviewed Today: Pertinent Labs: WBC 16.37, sodium 133, creatinine 0.57 Imaging: CT abdomen pelvis shows complicated acute/subacute sigmoid diverticulitis with contained perforation, increasing size of periaortic fluid collection concerning for abscess versus phlegmon this abuts the distal abdominal aorta with encasement of the inferior mesenteric artery, underlying fistula to the sigmoid colon difficult to exclude. Assessment and Plan: Active: Sepsis secondary to acute diverticulitis - GI note reviewed, ID consulted as well -Surgery consultation appreciated, recommending IR drainage but IR unable to do it due to the location of abscess. Patient may need surgical intervention. - Pain control with IV Dilaudid as needed, also added Roca 5 every 4 hours as needed, monitor for sedation - Continue IV cefepime 2 g IV every 8 hours, IV Flagyl 500 every 8 hours - Patient remains n.p.o. Hyponatremia, likely hypovolemic, resolving - Continue normal saline 130 cc an hour Chronic: Hypertension DVT ppx: Lovenox Code status: Full code Anticipated discharge place: Pending clinical course Anticipated discharge time: pending clinical course Objective - Vital Signs Vital signs: Vital Signs Temp 98.3 F 01/01/25 00:38 Pulse 86 01/01/25 08:00 Resp 18 01/01/25 08:00 BP 127/79 01/01/25 08:00 Pulse Ox 97 01/01/25 08:00 FiO2 Intake & Output 12/31/24 01/01/25 01/01/25 18:59 06:59 18:59 Intake Total 1860 240 Balance 1860 240 Weight 95.708 kg Intake: Intake, IV Titration 1860 Amount Cefepime 2 gm In Sodium 200 Chloride 0.9% 100 ml @ 25 mls/hr IVPB Q8H [facility] Rx#: [id number] Sodium Chloride 0.9% 1, 1560 000 ml @ 130 mls/hr IV . Q7H42M [facility] Rx#:[id number] metroNIDAZOLE-NS PMX 500 100 mg In Saline 1 100ml.bag @ 100 mls/hr IVPB Q8HR [facility] Rx#:[id number] Oral 240 Other: # Voids 3 - Labs CBC & Chem 7: 01/01/25 04:16 01/01/25 04:16 Labs: Abnormal Lab Results - Last 24 Hours (Table) 01/01/25 01/01/25 Range/Units 04:16 04:16 WBC 11.62 H (4.50-10.00) 10*3/uL MPV 8.8 L (9.5-12.2) fL Immature Gran # 0.42 H (0.00-0.04) 10*3/uL Neutrophils # 8.54 H (1.80-7.70) 10*3/uL Sodium 136 L (137-145) mmol/L BUN 7 L (9-20) mg/dL Creatinine 0.50 L (0.66-1.25) mg/dL
--- NOTE | 2025-01-01 15:25 | P.PN ---
Subjective Progress Note Date: 01/01/25 Principal diagnosis: Reason for follow-up diverticulitis/intra-abdominal abscess Patient is a 64-year male past medical history of hypertension diverticulitis admitted to the hospital with worsening diverticulitis failing outpatient oral Levaquin therapy seem to have not responded to the IV Levaquin and Flagyl as the patient had worsening diverticulitis and abscess formation on the CT prompted this consultation. On today's evaluation that is 01/02/2024, patient did have a temperature of 97.3 F this afternoon and denies having any chills, patient is on room air and breathing comfortably no chest pain or cough, the patient did not have any nausea vomiting some lower abdominal discomfort but no worsening pain. The patient white count is under 11.62, creatinine 0.50 Objective - Vital Signs Vital signs: Vital Signs Temp 98.3 F 01/01/25 00:38 Pulse 86 01/01/25 08:00 Resp 18 01/01/25 08:00 BP 127/79 01/01/25 08:00 Pulse Ox 97 01/01/25 08:00 FiO2 Intake & Output 12/31/24 01/01/25 01/01/25 18:59 06:59 18:59 Intake Total 1860 240 Balance 1860 240 Weight 95.708 kg Intake: Intake, IV Titration 1860 Amount Cefepime 2 gm In Sodium 200 Chloride 0.9% 100 ml @ 25 mls/hr IVPB Q8H [facility] Rx#: [id number] Sodium Chloride 0.9% 1, 1560 000 ml @ 130 mls/hr IV . Q7H42M [facility] Rx#:[id number] metroNIDAZOLE-NS PMX 500 100 mg In Saline 1 100ml.bag @ 100 mls/hr IVPB Q8HR [facility] Rx#:[id number] Oral 240 Other: # Voids 3 - Exam GENERAL DESCRIPTION: Middle-age male lying in bed in no distress RESPIRATORY SYSTEM: Unlabored breathing , decreased breath sounds at bases HEART: S1 S2 regular rate and rhythm , ABDOMEN: Soft , no tenderness EXTREMITIES: No edema feet - Labs CBC & Chem 7: 01/01/25 04:16 01/01/25 04:16 Labs: Abnormal Lab Results - Last 24 Hours (Table) 01/01/25 01/01/25 Range/Units 04:16 04:16 WBC 11.62 H (4.50-10.00) 10*3/uL MPV 8.8 L (9.5-12.2) fL Immature Gran # 0.42 H (0.00-0.04) 10*3/uL Neutrophils # 8.54 H (1.80-7.70) 10*3/uL Sodium 136 L (137-145) mmol/L BUN 7 L (9-20) mg/dL Creatinine 0.50 L (0.66-1.25) mg/dL Assessment and Plan (1) Perforation of sigmoid colon due to diverticulitis Current Visit: Yes Status: Acute Code(s): K57.20 - DVTRCLI OF LG INT W PERFORATION AND ABSCESS W/O BLEEDING SNOMED Code(s): 7607485321741711 (2) Leukocytosis Current Visit: Yes Status: Acute Code(s): D72.829 - ELEVATED WHITE BLOOD CELL COUNT, UNSPECIFIED SNOMED Code(s): 170533764 (3) Allergy to multiple antibiotics Current Visit: Yes Status: Acute Code(s): Z88.1 - ALLERGY STATUS TO OTHER ANTIBIOTIC AGENTS SNOMED Code(s): 908245277 Plan: 1patient presented to hospital with abdominal pain and this patient has been diagnosed with diverticulitis failing outpatient oral Levaquin therapy now seem to be have not responded very well to the IV Levaquin as well as oral Flagyl as the patient did have evidence of worsening diverticulitis/abscess 2patient with multiple antibiotic ALLERGIES that would limit the number of antibiotic safe to use 3patient remains to be afebrile patient white count is trending down we will continue with the cefepime and Flagyl await repeat CT findings question concern answered Dictation was produced using [email or web address] software. please excuse any grammatical, word or spelling errors. Time with Patient: Less than 30
--- NOTE | 2025-01-02 09:25 | CT ---
EXAMINATION TYPE: CT abdomen pelvis w con DATE OF EXAM: 01/02/2025 9:09 AM COMPARISON: 12/29/2024., 12/25/2024, 10/28/2024 CLINICAL INDICATION: Male, 64 years old with history of diverticultis with abscess; Diverticulitis wi th abscess TECHNIQUE: Axial CT abdomen pelvis w con;Sagittal and coronal reformats were created on a separate w orkstation. Contrast used:100ML mL of Isovue 300 with IV Contrast, (none if empty) Oral contrast used: without Oral Contrast (none if empty) CT DLP: 1211.4 mGycm, Automated exposure control for dose reduction was used. FINDINGS: LOWER CHEST: Unremarkable ABDOMEN LIVER: Focal regions of fatty infiltration around the gallbladder fossa. GALLBLADDER AND BILE DUCTS: The gallbladder is surgically absent. No biliary ductal dilatation. PANCREAS: Unremarkable. SPLEEN: Unremarkable. ADRENAL GLANDS: Unremarkable. KIDNEYS AND URETERS: No evidence of hydronephrosis or renal calculus. The kidneys enhance symmetrical ly. Contrast is demonstrated within both collecting systems and proximal ureters on the delayed phase . Stable right renal 1.8 cm simple cyst. No follow-up recommended. PELVIS BLADDER: Unremarkable REPRODUCTIVE: Unremarkable. ABDOMEN & PELVIS STOMACH AND BOWEL: Stomach and duodenum are unremarkable. Circumferential wall thickening with divert icula involving the sigmoid colon. There is similar stranding around the sigmoid colon extending into the left periaortic retroperitoneum. Similar size of fluid collection with no well organized rim in the left periaortic retroperitoneum measuring approximately 4.8 x 3.9 cm This abuts the distal abdomi nal aorta. There is encasement of the inferior mesenteric artery. No single focus of gas identified o n today's exam with more fluid appearance. There is a tract inflammatory changes extending to the sig moid colon. No evidence of bowel obstruction. PERITONEUM: No evidence of pneumoperitoneum or free fluid. VASCULATURE: Mild atherosclerotic calcifications are present throughout the abdominal aorta and its b ranches. No evidence of aortic aneurysm. Fusiform ectasia of the mid abdominal aorta measuring up to 2.9 cm. Left para-aortic fluid collection and stranding encases the PRITESH. Which appears to demonstrate enhancement. MUSCULOSKELETAL: No acute osseous abnormalities LYMPH NODES: Similar enlarged perirectal lymph node measuring up to 8 mm. Likely reactive. SOFT TISSUE/ABDOMINAL WALL: Fat filled bilateral inguinal hernias with right greater than left. There is similar stranding changes within the right inguinal hernia. IMPRESSION: 1. Complicated sigmoid diverticulitis with contained perforation is steadily increasing in size from 10/28/2024 and is located deep within the retroperitoneum the inferior mesenteric artery courses thro ugh the abscess. 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 Surgical consultat ion is recommended. 2. 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 [facility], , 01/02/2025 9:23 AM
--- NOTE | 2025-01-02 13:35 | P.PN ---
Subjective Progress Note Date: 01/02/25 Subjective: Patient seen and examined at bedside. CT A/P shows worsening abscess collection, possible fistula. Pending surgery in the AM. Vitals Signs Reviewed. Gen: In NAD, non-toxic HEENT: normocephalic, atraumatic, hearing acuity is intant, mucous membranes moist CVS: perfusing all extremities well, no pitting edema, Respiratory: symmetric chest expansion, no accessory muscle use, GI: soft, NTTP, ND, : no suprapubic tenderness, no CVA tenderness MSK/Derm: no rashes, cyanosis Neuro: CN II-XII intact, no motor weakness, Psych: cooperative, euthymic mood, judgment and insight is intact Assessment and Plan: Active: Sepsis secondary to acute diverticulitis - GI note reviewed, ID consulted as well -Surgery consultation appreciated, recommending IR drainage but IR unable to do it due to the location of abscess. Patient may need surgical intervention. - Pain control with IV Dilaudid as needed, also added Cedar 5 every 4 hours as needed, monitor for sedation - Continue IV cefepime 2 g IV every 8 hours, IV Flagyl 500 every 8 hours - Patient remains n.p.o. Hyponatremia, likely hypovolemic, resolving - Continue normal saline 130 cc an hour Chronic: Hypertension DVT ppx: Lovenox Code status: Full code Anticipated discharge place: Pending clinical course Anticipated discharge time: pending clinical course Objective - Vital Signs Vital signs: Vital Signs Temp 98.3 F 01/02/25 07:27 Pulse 79 01/02/25 07:27 Resp 18 01/02/25 07:27 BP 136/89 01/02/25 07:27 Pulse Ox 95 01/02/25 07:27 FiO2 Intake & Output 01/01/25 01/02/25 01/02/25 18:59 06:59 18:59 Intake Total 540 Balance 540 Intake: Oral 540 Other: Voiding Method Toilet # Voids 3 # Bowel Movements 0 - Labs CBC & Chem 7: 01/01/25 04:16 01/01/25 04:16
--- NOTE | 2025-01-02 16:19 | P.PN ---
Subjective Progress Note Date: 01/02/25 Principal diagnosis: Reason for follow-up diverticulitis/intra-abdominal abscess Patient is a 64-year male past medical history of hypertension diverticulitis admitted to the hospital with worsening diverticulitis failing outpatient oral Levaquin therapy seem to have not responded to the IV Levaquin and Flagyl as the patient had worsening diverticulitis and abscess formation on the CT prompted this consultation. On today's evaluation that is 01/02/2025, Patient is afebrile patient is currently on room air and denies having any shortness of breath, the patient den ies any chest pain or cough, the patient denies any nausea vomiting abdominal pain is currently controlled. Patient did not have a lab draw today repeat CT abdominal pelvis concerning for worsening and concern for possible fistula Objective - Vital Signs Vital signs: Vital Signs Temp 98.3 F 01/02/25 07:27 Pulse 79 01/02/25 07:27 Resp 18 01/02/25 07:27 BP 136/89 01/02/25 07:27 Pulse Ox 95 01/02/25 07:27 FiO2 Intake & Output 01/01/25 01/02/25 01/02/25 18:59 06:59 18:59 Intake Total 540 Balance 540 Intake: Oral 540 Other: Voiding Method Toilet # Voids 3 # Bowel Movements 0 - Exam GENERAL DESCRIPTION: Middle-age male lying in bed in no distress RESPIRATORY SYSTEM: Unlabored breathing , decreased breath sounds at bases HEART: S1 S2 regular rate and rhythm , ABDOMEN: Soft , no tenderness EXTREMITIES: No edema feet - Labs CBC & Chem 7: 01/01/25 04:16 01/01/25 04:16 Assessment and Plan (1) Perforation of sigmoid colon due to diverticulitis Current Visit: Yes Status: Acute Code(s): K57.20 - DVTRCLI OF LG INT W PERFORATION AND ABSCESS W/O BLEEDING SNOMED Code(s): 4018706530496970 (2) Leukocytosis Current Visit: Yes Status: Acute Code(s): D72.829 - ELEVATED WHITE BLOOD CELL COUNT, UNSPECIFIED SNOMED Code(s): 612739603 (3) Allergy to multiple antibiotics Current Visit: Yes Status: Acute Code(s): Z88.1 - ALLERGY STATUS TO OTHER ANTIBIOTIC AGENTS SNOMED Code(s): 103173100 Plan: 1patient presented to hospital with abdominal pain and this patient has been diagnosed with diverticulitis failing outpatient oral Levaquin therapy now seem to be have not responded very well to the IV Levaquin as well as oral Flagyl as the patient did have evidence of worsening diverticulitis/abscess 2patient with multiple antibiotic ALLERGIES that would limit the number of antibiotic safe to use 3patient remains to be afebrile patient white count is trending down as of yesterday however CT abdominal pelvis did show some worsening findings and patient scheduled for possible surgery tomorrow 4for now we will continue with the cefepime and Flagyl and monitor clinical course closely Dictation was produced using [employer] dictation software. please excuse any grammatical, word or spelling errors. Time with Patient: Less than 30
--- NOTE | 2025-01-02 19:05 | P.PN ---
Subjective Patient seen and evaluated bedside patient doing well minimal pain no nausea no vomiting. Objective - Vital Signs Vital signs: Vital Signs Temp 98.3 F 01/02/25 14:00 Pulse 78 01/02/25 14:00 Resp 18 01/02/25 14:00 BP 127/79 01/02/25 14:00 Pulse Ox 95 01/02/25 14:00 FiO2 Intake & Output 01/02/25 01/02/25 01/03/25 06:59 18:59 06:59 Intake Total 540 Balance 540 Intake: Oral 540 Other: Voiding Method Toilet # Voids 3 # Bowel Movements 0 - Exam General No acute distress alert and oriented x 3 Cardiovascular regular in rhythm Pulmonary nonlabored breathing Abdomen is soft, minimally tender to palpation in the suprapubic area no guarding or rebound tenderness protuberant abdomen - Labs CBC & Chem 7: 01/01/25 04:16 01/01/25 04:16 Assessment and Plan Assessment: 64-year-old male with diverticulitis with pelvic abscess Continue IV antibiotics per infectious disease CT scan of the abdomen pelvis demonstrates worsening abscess Discussed with patient and he understands the severity of CT scan findings we will take him to the operating room tomorrow January 02 N.p.o. after midnight Time with Patient: Greater than 30
[2025-01-03 07:55] LABS: Basophils # (A) 0.06 X 10*3/uL (0.00-0.10); Basophils % (A) 0.5 %; Eosinophils # (A) 0.28 X 10*3/uL (0.04-0.35); Eosinophils % (A) 2.2 %; HCT 43.4 % (39.6-50.0); HGB 14.2 g/dL (13.0-17.0); Immature Grans, Automated 3.00 %; Lymphocytes # (A) 1.49 X 10*3/uL (0.90-5.00); Lymphocytes % (A) 11.8 %; MCH 30.0 pg (27.0-32.0); MCHC 32.7 g/dL (32.0-37.0); MCV 91.6 FL (80.0-97.0); Monocytes # (A) 0.73 X 10*3/uL (0.20-1.00); Monocytes % (A) 5.8 %; NRBC Per 100 WBC 0 X 10*3/uL (0.00-0.01); Neutrophils # (A) 9.74 X 10*3/uL (1.80-7.70); Neutrophils % (A) 76.7 %; Platelet Count 369 X 10*3/uL (140-440); RBC 4.74 X 10*6/uL (4.40-5.60); RDW 12.5 % (11.5-14.5); WBC 12.68 X 10*3/uL (4.50-10.00)
[2025-01-03 08:00] LABS: Anion Gap 9.50 mmol/L (4.00-12.00); BUN/Creat Ratio 9.71 Ratio (12.00-20.00); Blood Urea Nitrogen 6.8 mg/dL (9.0-27.0); Carbon Dioxide 25.5 mmol/L (21.6-31.8); Chloride 102 mmol/L (96-109); Glucose 91 mg/dL (70-110); Potassium 4.3 mmol/L (3.5-5.5); Sodium 137 mmol/L (135-145)
[2025-01-03 08:01] LABS: Calcium 8.7 mg/dL (8.7-10.3)
[2025-01-03 08:14] LABS: INR 1.01 sec (0.93-1.11); Prothrombin Time 11.5 sec (9.9-11.9)
[2025-01-03] MEDS: IV FLUID CONTINUATION 1,000 ML IV ONE ×2 (10:37→14:20)
[2025-01-03] MEDS: MIDAZOLAM 2 MG/2 ML VIAL IV STA (11:17)
[2025-01-03] MEDS ORDERED: PROPOFOL 10 MG/ML 20 ML VIAL IV ONE (12:21)
[2025-01-03] MEDS ORDERED: ROCURONIUM 10 MG/ML (5 ML VIAL) IV ONE (12:21)
[2025-01-03] MEDS ORDERED: NEOSTIGMINE 1 MG/ML 10 ML VIAL ONE (12:21)
[2025-01-03] MEDS ORDERED: MIDAZOLAM 2 MG/2 ML VIAL ONE (12:21)
[2025-01-03] MEDS ORDERED: HYDROmorphone (PF) 1 MG/ML ONE (12:21)
[2025-01-03] MEDS ORDERED: SUCCINYLCHOLINE CHLORIDE 200 MG/10 ML VIAL IV ONE (12:21)
[2025-01-03] MEDS ORDERED: WATER FOR INJECTION, STERILE 10 ML VIAL IV ONE (12:21)
[2025-01-03] MEDS ORDERED: KETAMINE HCL IN 0.9 % NACL 50 MG/5 ML SYRINGE ONE (12:21)
[2025-01-03] MEDS ORDERED: ePHEDrine 50 MG/ML 1 ML VIAL ONE (12:21)
[2025-01-03] MEDS ORDERED: HEPARIN SODIUM,PORCINE 5,000 UNIT/ML 1 ML VIAL ONE (12:21)
[2025-01-03] MEDS ORDERED: fentaNYL (PF) 50 MCG/ML 2 ML AMP ONE (12:21)
[2025-01-03] MEDS ORDERED: LIDOCAINE 1% INJ 10MG/ML (20 ML MDV) ONE (12:21)
[2025-01-03] MEDS ORDERED: GLYCOPYRROLATE 0.2 MG/ML 2 ML VIAL ONE (12:21)
[2025-01-03] MEDS ORDERED: PHENYLEPHRINE 10% OPHTH DROPS 5 ML BTL ONE (12:21)
[2025-01-03] MEDS: LACTATED RINGERS 1,000 ML IV ONE (12:50)
[2025-01-03] MEDS ORDERED: NALOXONE 0.4 MG/ML 1 ML VIAL IV PRN (12:55)
--- NOTE | 2025-01-03 13:20 | P.PN ---
Progress Note - Text Progress Note Date: 01/03/25 Attempted to see patient but he was not available due to being in the operating room during the time my evaluation.
[2025-01-03] MEDS: ROPIVACAINE 250 MG, HYDROMORPHONE (PF) 5 MG in SODIUM CHLORIDE 0.9% 200 ML EPIDURAL PRN (14:42)
[2025-01-03] MEDS: fentaNYL (PF) 50 MCG/ML 2 ML AMP MISCELLANE PRN (15:02)
--- NOTE | 2025-01-03 16:21 | P.OP ---
Date of Procedure: 01/03/25 Preoperative Diagnosis: Perforated diverticulitis with abscess formation Postoperative Diagnosis: Perforated diverticulitis with abscess formation Procedure(s) Performed: Exploratory laparotomy Sigmoid colectomy with end colostomy creation Anesthesia: MANOLO Surgeon: Meg Harris Pathology: other (Sigmoid colon, cultures of intra-abdominal abscess) Condition: stable Disposition: floor Indications for Procedure: 64-year-old male with recent history of diverticulitis with abscess formation. He has been tried on multiple antibiotic regimen without any significant success and relief of abscess. Secondary to this plan is for surgical intervention with exploratory laparotomy. Case is discussed with the patient and patient's family in depth prior to the operation with likelihood of ostomy creation due to abscess. Patient is understanding of this. Risks of bleeding, infection were also discussed. All questions answered prior to attending the operating suite. Operative Findings: Diverticulitis with contained abscess noted Description of Procedure: Patient was brought to the operative suite and placed in supine position on the operating table. Sedation provided by anesthesia and the patient underwent endotracheal intubation. He was then prepped and draped in regular sterile fashion. Midline incision was made and dissection was carried to the fascia. The fascia was incised along the length of the incision. The small bowel was th en packed in the right upper quadrant using warm wet x-ray dependent towels. The sigmoid colon was examined and was noted to be hard to the touch. The perforation was noted to be posterior towards the mesentery and the diverticular perforated site was noted to be adherent to the mesentery at this site. Both proximal and distal portions of the colon were evaluated. Healthier tissue was noted and decision was made to transect the proximal portion at area of healthy bowel. Stapler device was fired and LigaSure device was used to take down the mesentery distally. During this dissection, the diverticular abscess was freed from the fistulous connection with the diverticulitis site and purulent material was drained. Cultures were obtained. The abscess was noted to be contained within the mesentery. At this point, further dissection was performed with the LigaSure device towards the distal point of transection. Transection was performed using stapler device. At this point copious amounts irrigation was placed into the pelvis and suction. No additional purulent material was noted. White line of Toldt was taken down on the left side to free enough colon for anticipated creation of ostomy. Point of ostomy creation was decided upon on the left abdomen and a circular incision was made. Dissection was then carried towards the fascia. The fascia was incised with a cruciate incision and muscle was split. The peritoneum was then entered. The anticipated stoma was then delivered through this site. It appeared to rest without any significant tension. Copious amounts of irrigation was then placed into the abdomen and suctioned once again. YENNY drain was placed into the pelvis and secured to the right side of the abdomen using a 2-0 silk suture. Midline incision was then closed using a looped PDS suture. Skin was closed with skin xavier. The ostomy was then matured in standard Ruth fashion. Sterile dressing was applied with ostomy appliance. Patient was awakened in the operating suite and taken to postanesthesia care unit in stable condition. Sponge and instrument count were correct x 2.
[2025-01-03] MEDS: diphenhydrAMINE 50 MG/ML 1 ML VIAL IVP PRN (17:33)
[2025-01-04 07:16] LABS: Basophils # (A) 0.09 X 10*3/uL (0.00-0.10); Basophils % (A) 0.7 %; Eosinophils # (A) 0.11 X 10*3/uL (0.04-0.35); Eosinophils % (A) 0.9 %; HCT 42.4 % (39.6-50.0); HGB 13.8 g/dL (13.0-17.0); Immature Grans, Automated 2.60 %; Lymphocytes # (A) 1.40 X 10*3/uL (0.90-5.00); Lymphocytes % (A) 11.0 %; MCH 30.1 pg (27.0-32.0); MCHC 32.5 g/dL (32.0-37.0); MCV 92.4 FL (80.0-97.0); Monocytes # (A) 0.82 X 10*3/uL (0.20-1.00); Monocytes % (A) 6.4 %; NRBC Per 100 WBC 0 X 10*3/uL (0.00-0.01); Neutrophils # (A) 9.98 X 10*3/uL (1.80-7.70); Neutrophils % (A) 78.4 %; Platelet Count 368 X 10*3/uL (140-440); RBC 4.59 X 10*6/uL (4.40-5.60); RDW 12.6 % (11.5-14.5); WBC 12.73 X 10*3/uL (4.50-10.00)
[2025-01-04 07:35] LABS: ALT 22 U/L (10-49); AST 33 U/L (14-35); Albumin 3.3 g/dL (3.8-4.9); Albumin/Globulin Ratio 1.43 Ratio (1.60-3.17); Alkaline Phosphatase 87 U/L (41-126); Anion Gap 10.80 mmol/L (4.00-12.00); BUN/Creat Ratio 14.50 Ratio (12.00-20.00); Blood Urea Nitrogen 11.6 mg/dL (9.0-27.0); Calcium 8.4 mg/dL (8.7-10.3); Carbon Dioxide 26.2 mmol/L (21.6-31.8); Chloride 102 mmol/L (96-109); Globulin 2.3 g/dL (1.6-3.3); Glucose 79 mg/dL (70-110); Potassium 4.7 mmol/L (3.5-5.5); Sodium 139 mmol/L (135-145); Total Protein 5.6 g/dL (6.2-8.2)
--- NOTE | 2025-01-04 11:18 | P.PN ---
Subjective Progress Note Date: 01/04/25 Principal diagnosis: Diverticulitis This is a pleasant 64-year-old male with a past medical history of diverticulitis/colitis who presented to the emergency department on 12/25/2024 with complaints of abdominal pain and nausea and vomiting. He was discharged on oral antibiotics however patient continued to have abdominal pain and presented back to the emergency department was admitted for IV antibiotics. Patient had a CT of the abdomen pelvis with contrast from 12/25/2024 reported acute diverticulitis of the sigmoid colon without bowel obstruction abscess or free air or free fluid. Gastroenterology has been consulted for colitis/diverticulitis. He states he has had lower abdominal pain along with back pain as well as constipation and no bowel movement since Friday. He takes MiraLAX twice a day. Denies any blood per rectum. No nausea or vomiting. Was last seen in the office around October which she states was last episode of diverticulitis. Last colonoscopy was 08/30/[address] 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 Patient does take balsalazide 2250 mg p.o. twice daily. Was admitted with leukocytosis, he has been afebrile. He is currently on IV Flagyl and Levaquin. States that his pain is little bit better today. 12/28/2024 Patient is seen and examined today as a follow-up. States abdominal pain is better but he is still having lower abdominal cramping. Passing gas but no bowel movement. No nausea or vomiting. Patient's been afebrile. Leukocytosis is improving and WBC is 14 down from 18. Sed rate 22 and CRP 16.8 12/29/2024 Patient seen and examined today as a follow-up. He states abdominal pain is continuing to improve. He had some left lower abdominal cramping through the night. He is having bowel movements now. He is having loose stool, no blood noted. States that he mostly feels gassy. No nausea or vomiting. He has been afebrile. Did have a slight increase in his white blood cell count from 14 yesterday to 16.9 today. General Surgery following along. Planning on ordering CT of the abdomen and pelvis. Heart healthy diet ordered per medical team. Patient states he had some mild discomfort after eating oatmeal this morning. 12/30/2024 Patient seen and examined today as a follow-up. He had a repeat CT of the abdomen and pelvis with complicated diverticulitis with possible perforation and abscess. Patient states he still has some lower abdominal discomfort. Max temp 99.5. Denies any nausea or vomiting. States still having loose bowel movements but no blood in stool. Currently NPO. General surgery has seen patient and discussing treatment options including continued IV antibiotics, possible drainage of the abscess by interventional radiology versus surgical options. 12/31/2024 Patient seen and examined today as a follow-up. States abdominal pain continues to improve. Infectious disease has seen him and changed his Levaquin to cefepime. He has been afebrile. No nausea or vomiting. Tolerating full liquid diet. He states tentative plan is for surgery on Friday. Leukocytosis improving WBC 13.9. 01/04/2025 Patient seen and reevaluated today. Yesterday attempted to see patient but he was in the operating room. He is postop day #1 today for sigmoid colectomy with end colostomy. He states he is sore but overall doing well. He had low-grade fever this morning about 100.2, leukocytosis has been trending down since last week. WBC 12.7 hemoglobin 13.8 platelet count 368,000. Patient had clear liq uid diet. Objective - Vital Signs Vital signs: Vital Signs Temp 100.2 F H 01/04/25 07:45 Pulse 91 01/04/25 07:45 Resp 18 01/04/25 07:45 BP 121/78 01/04/25 07:45 Pulse Ox 94 L 01/04/25 07:45 FiO2 Intake & Output 01/03/25 01/04/25 01/04/25 18:59 06:59 18:59 Intake Total 1100 720 Output Total 597.4 435 750 Balance 502.6 -435 -30 Weight 95.708 kg Intake: IV 1100 Oral 720 Output: Drainage 40 35 Right Abdomen 40 35 Urine 550 400 750 Estimated Blood Loss 7.4 Other: Voiding Method Indwelling Catheter Indwelling Catheter # Voids 1 - Exam General appearance: The patient is alert, oriented, appears in no acute distress. HET: Head is normocephalic and atraumatic. Conjunctiva pink. Sclera anicteric. Neck: Supple without lymphadenopathy. Abdomen: Soft, colostomy, surgical tenderness, nondistended. Extremities: Normal skin color and turgor. No pedal edema Skin: No rashes, no jaundice Neurological: No focal deficits. Alert and oriented. - Labs CBC & Chem 7: 01/04/25 02:52 01/04/25 02:52 Labs: Abnormal Lab Results - Last 24 Hours (Table) 01/04/25 01/04/25 Range/Units 02:52 02:52 WBC 12.73 H (4.50-10.00) X 10*3/uL MPV 8.9 L (9.5-12.2) FL Immature Gran # 0.33 H (0.00-0.04) X 10*3/uL Neutrophils # 9.98 H (1.80-7.70) X 10*3/uL Calcium 8.4 L (8.7-10.3) mg/dL Total Protein 5.6 L (6.2-8.2) g/dL Albumin 3.3 L (3.8-4.9) g/dL Albumin/Globulin Ratio 1.43 L (1.60-3.17) Ratio Assessment and Plan (1) Diverticulitis Current Visit: Yes Status: Acute Code(s): K57.92 - DVTRCLI OF INTEST, PART UNSP, W/O PERF OR ABSCESS W/O BLEED SNOMED Code(s): 001928775 (2) Abdominal pain Current Visit: Yes Status: Acute Code(s): R10.9 - UNSPECIFIED ABDOMINAL PAIN SNOMED Code(s): 65702661 (3) Perforation of sigmoid colon due to diverticulitis Narrative/Plan: Patient is status post sigmoid colectomy with end colostomy Current Visit: Yes Status: Acute Code(s): K57.20 - DVTRCLI OF LG INT W PERFO RATION AND ABSCESS W/O BLEEDING SNOMED Code(s): 9827830765447515 Plan: 1. Continue symptomatic and supportive care 2. Continue antibiotics per recommendations from general surgery and infectious disease 3. Diet per recommendations from general surgery 4. Encourage ambulation 5. Rest of medical management per primary medical team Thank you for this consultation, we will sign off at this time. Dr. Scarlett Sanchez I agree with the dictator's note, documented as a scribe by Ana Lilia Gresham.
--- NOTE | 2025-01-04 11:46 | P.PN ---
Progress Note - Text Progress Note Date: 01/04/25 Postop day 1 from exploratory laparotomy, epidural catheter inserted for postop pain control. Epidural solution: Ropivacaine 0.1% with Dilaudid 20 mcgs/ml running at 6 mL an hour. Patient pain is well controlled with visual analog score of 0-1/10. No nausea vomiting, itching, weakness or numbness in the legs or headache reported by the patient. Plan: To continue the epidural infusion at the current rate.
--- NOTE | 2025-01-04 14:16 | P.PN ---
Subjective Progress Note Date: 01/04/25 SURGICAL PROGRESS NOTE CHIEF COMPLAINT: Diverticulitis HISTORY OF PRESENT ILLNESS: Postop day #1 status post exploratory laparotomy sigmoid colectomy with end colostomy creation. Patient reports his pain is controlled. Denies any nausea or vomiting. He was mildly tachycardic now improved. Did have a low-grade temp of 100.2 this morning WBC 12.73 Hgb 13.8 PHYSICAL EXAM: VITAL SIGNS: Reviewed. GENERAL: Well-developed in no acute distress. ABDOMEN: Soft. Nondistended. Tenderness at incision site. Incisional dressing does have some blood saturation noted distally. Otherwise 1 pull back incision is clean dry and intact. Ostomy with beefy red stoma and serosanguineous drainage. YENNY drain NEUROLOGIC: Alert and oriented. Cranial nerves II through XII grossly intact. ASSESSMENT: 1. Perforated diverticulitis with abscess PLAN: -Continue epidural for pain control -Change Optifoam surgical dressing -Antibiotics per ID service -Encourage patient to increase activity level -Encourage patient to use incentive spirometer - Continue clear liquid diet - Continue IV fluids - GI prophylaxis Protonix and DVT prophylaxis subcu heparin Physician Rn Burn note has been reviewed by physician. Signing provider agrees with the documented findings, assessment, and plan of care. Objective - Vital Signs Vital signs: Vital Signs Temp 98.4 F 01/04/25 13:20 Pulse 90 01/04/25 13:20 Resp 18 01/04/25 13:20 BP 144/74 01/04/25 13:20 Pulse Ox 95 01/04/25 13:20 FiO2 Intake & Output 01/03/25 01/04/25 01/04/25 18:59 06:59 18:59 Intake Total 1100 1440 Output Total 597.4 435 750 Balance 502.6 -435 690 Weight 95.708 kg Intake: IV 1100 Oral 1440 Output: Drainage 40 35 Right Abdomen 40 35 Urine 550 400 750 Estimated Blood Loss 7.4 Other: Voiding Method Indwelling Catheter Indwelling Catheter Indwelling Catheter # Voids 1 - Labs CBC & Chem 7: 01/04/25 02:52 01/04/25 02:52 Labs: Abnormal Lab Results - Last 24 Hours (Table) 01/04/25 01/04/25 Range/Units 02:52 02:52 WBC 12.73 H (4.50-10.00) X 10*3/uL MPV 8.9 L (9.5-12.2) FL Immature Gran # 0.33 H (0.00-0.04) X 10*3/uL Neutrophils # 9.98 H (1.80-7.70) X 10*3/uL Calcium 8.4 L (8.7-10.3) mg/dL Total Protein 5.6 L (6.2-8.2) g/dL Albumin 3.3 L (3.8-4.9) g/dL Albumin/Globulin Ratio 1.43 L (1.60-3.17) Ratio
--- NOTE | 2025-01-04 15:43 | P.PN ---
Subjective Progress Note Date: 01/04/25 Principal diagnosis: Reason for follow-up diverticulitis/intra-abdominal abscess Patient is a 64-year male past medical history of hypertension diverticulitis admitted to the hospital with worsening diverticulitis failing outpatient oral Levaquin therapy seem to have not responded to the IV Levaquin and Flagyl as the patient had worsening diverticulitis and abscess formation on the CT prompted this consultation. On today's evaluation that is Patient is status post laparotomy sigmoid colectomy diverting colostomy and drainage of the abscess procedure completed on 01/03/2025. On today's evaluation that is 01/04/2025, Patient did have low-grade fever 100.2 F this morning patient denies having any chest pain shortness of breath or cough, the patient is currently on 2 L nasal oxygen, patient denies any nausea vomiting abdominal pain is currently controlled Patient white count is 12.73, creatinine 0.8 Objective - Vital Signs Vital signs: Vital Signs Temp 98.4 F 01/04/25 13:20 Pulse 90 01/04/25 13:20 Resp 18 01/04/25 13:20 BP 144/74 01/04/25 13:20 Pulse Ox 95 01/04/25 13:20 FiO2 Intake & Output 01/03/25 01/04/25 01/04/25 18:59 06:59 18:59 Intake Total 1100 1440 Output Total 597.4 435 750 Balance 502.6 -435 690 Weight 95.708 kg Intake: IV 1100 Oral 1440 Output: Drainage 40 35 Right Abdomen 40 35 Urine 550 400 750 Estimated Blood Loss 7.4 Other: Voiding Method Indwelling Catheter Indwelling Catheter Indwelling Catheter # Voids 1 - Exam GENERAL DESCRIPTION: Middle-age male lying in bed in no distress RESPIRATORY SYSTEM: Unlabored breathing , decreased breath sounds at bases HEART: S1 S2 regular rate and rhythm , ABDOMEN: Soft , no tenderness EXTREMITIES: No edema feet - Labs CBC & Chem 7: 01/04/25 02:52 01/04/25 02:52 Labs: Abnormal Lab Results - Last 24 Hours (Table) 01/04/25 01/04/25 Range/Units 02:52 02:52 WBC 12.73 H (4.50-10.00) X 10*3/uL MPV 8.9 L (9.5-12.2) FL Immature Gran # 0.33 H (0.00-0.04) X 10*3/uL Neutrophils # 9.98 H (1.80-7.70) X 10*3/uL Calcium 8.4 L (8.7-10.3) mg/dL Total Protein 5.6 L (6.2-8.2) g/dL Albumin 3.3 L (3.8-4.9) g/dL Albumin/Globulin Ratio 1.43 L (1.60-3.17) Ratio Assessment and Plan (1) Perforation of sigmoid colon due to diverticulitis Current Visit: Yes Status: Acute Code(s): K57.20 - DVTRCLI OF LG INT W PERFORATION AND ABSCESS W/O BLEEDING SNOMED Code(s): 3097925608402412 (2) Leukocytosis Current Visit: Yes Status: Acute Code(s): D72.829 - ELEVATED WHITE BLOOD CELL COUNT, UNSPECIFIED SNOMED Code(s): 608782974 (3) Allergy to multiple antibiotics Current Visit: Yes Status: Acute Code(s): Z88.1 - ALLERGY STATUS TO OTHER ANTIBIOTIC AGENTS SNOMED Code(s): 486932271 Plan: 1patient presented to hospital with abdominal pain and this patient has been diagnosed with diverticulitis failing outpatient oral Levaquin therapy now seem to be have not responded very well to the IV Levaquin as well as oral Flagyl as the patient did have evidence of worsening diverticulitis/abscess 2patient with multiple antibiotic ALLERGIES that would limit the number of antibiotic safe to use 3patient remains to be afebrile patient white count is trending down as of yesterday however CT abdominal pelvis did show some worsening findings and patient status post laparotomy sigmoid colectomy drainage of the abscess and end colostomy 4patient to continue cefepime and Flagyl while waiting for the OR culture to finalize to determine his discharge antibiotics Dictation was produced using [employer] dictation software. please excuse any grammatical, word or spelling errors. Time with Patient: Less than 30
--- NOTE | 2025-01-04 15:43 | P.PN ---
Subjective Progress Note Date: 01/03/25 Principal diagnosis: Reason for follow-up diverticulitis/intra-abdominal abscess Patient is a 64-year male past medical history of hypertension diverticulitis admitted to the hospital with worsening diverticulitis failing outpatient oral Levaquin therapy seem to have not responded to the IV Levaquin and Flagyl as the patient had worsening diverticulitis and abscess formation on the CT prompted this consultation. On today's evaluation that is Patient is status post laparotomy sigmoid colectomy diverting colostomy and drainage of the abscess procedure completed on 01/03/2025. On today's evaluation that is 01/03/2025, patient has been afebrile, patient is breathing comfortably and is currently on room air, patient denies having any chest pain and cough, patient denies nausea vomiting however complaining of significant normal pain for surgery. Patient white count is 12.68, creatinine 0.7 Objective - Vital Signs Vital signs: Vital Signs Temp 97.2 F L 01/03/25 14:20 Pulse 96 01/03/25 15:20 Resp 14 01/03/25 15:20 BP 148/82 01/03/25 15:20 Pulse Ox 93 L 01/03/25 15:20 FiO2 Intake & Output 01/02/25 01/03/25 01/03/25 18:59 06:59 18:59 Intake Total 1100 Output Total 557.4 Balance 542.6 Weight 95.708 kg Intake: IV 1100 Output: Urine 550 Estimated Blood Loss 7.4 Other: Voiding Method Toilet Toilet # Voids 3 5 # Bowel Movements 0 - Labs CBC & Chem 7: 01/04/25 02:52 01/04/25 02:52 Labs: Abnormal Lab Results - Last 24 Hours (Table) 01/03/25 01/03/25 Range/Units 02:41 02:41 WBC 12.68 H (4.50-10.00) X 10*3/uL MPV 9.0 L (9.5-12.2) FL Immature Gran # 0.38 H (0.00-0.04) X 10*3/uL Neutrophils # 9.74 H (1.80-7.70) X 10*3/uL BUN 6.8 L (9.0-27.0) mg/dL BUN/Creatinine Ratio 9.71 L (12.00-20.00) Ratio Assessment and Plan (1) Perforation of sigmoid colon due to diverticulitis Current Visit: Yes Status: Acute Code(s): K57.20 - DVTRCLI OF LG INT W PERFORATION AND ABSCESS W/O BLEEDING SNOMED Code(s): 2605805383799661 (2) Leukocytosis Current Visit: Yes Status: Acute Code(s): D72.829 - ELEVATED WHITE BLOOD CELL COUNT, UNSPECIFIED SNOMED Code(s): 639384307 (3) Allergy to multiple antibiotics Current Visit: Yes Status: Acute Code(s): Z88.1 - ALLERGY STATUS TO OTHER ANTIBIOTIC AGENTS SNOMED Code(s): 409479832 Plan: 1patient presented to hospital with abdominal pain and this patient has been diagnosed with diverticulitis failing outpatient oral Levaquin therapy now seem to be have not responded very well to the IV Levaquin as well as oral Flagyl as the patient did have evidence of worsening diverticulitis/abscess 2patient with multiple antibiotic ALLERGIES that would limit the number of antibiotic safe to use 3patient remains to be afebrile patient white count is trending down as of yesterday however CT abdominal pelvis did show some worsening findings and patient status post laparotomy sigmoid colectomy drainage of the abscess and end colostomy 4patient is currently being treated with the cefepime and Flagyl while waiting for the OR culture to finalize Dictation was produced using [employer] software. please excuse any grammatical, word or spelling errors. Time with Patient: Less than 30
--- NOTE | 2025-01-04 18:29 | P.PN ---
Subjective Progress Note Date: 01/04/25 Principal diagnosis: Patient evaluated today following surgery. Is in mild discomfort but denies any severe pain or new symptoms today. Objective - Vital Signs Vital signs: Vital Signs Temp 98.4 F 01/04/25 13:20 Pulse 90 01/04/25 13:20 Resp 18 01/04/25 13:20 BP 144/74 01/04/25 13:20 Pulse Ox 95 01/04/25 13:20 FiO2 Intake & Output 01/03/25 01/04/25 01/04/25 18:59 06:59 18:59 Intake Total 1100 1601.6 Output Total 597.4 435 1820 Balance 502.6 -435 -218.4 Weight 95.708 kg Intake: IV 1100 Intake, IV Titration 161.6 Amount Ropivacaine 250 mg 161.6 Hydromorphone (Pf) 5 mg In Sodium Chloride 0.9% 200 ml @ Per Protocol EPIDURAL .Q0M PRN Rx#: [id number] Oral 1440 Output: Drainage 40 35 20 Right Abdomen 40 35 20 Urine 761 [id number] Estimated Blood Loss 7.4 Other: Voiding Method Indwelling Catheter Indwelling Catheter Indwelling Catheter # Voids 1 - Exam Gen: In NAD, non-toxic HEENT: normocephalic, atraumatic, hearing acuity is intant, mucous membranes moist CVS: perfusing all extremities well, no pitting edema, Respiratory: symmetric chest expansion, no accessory muscle use, GI: soft, NTTP, ND, Dressings in place over surgical incisions. Colostomy bag in place with a small amount of blood collected. Surgical drain collecting approximately 10mL of serosanguineous fluid. : no suprapubic tenderness, no CVA tenderness MSK/Derm: no rashes, cyanosis Neuro: CN II-XII intact, no motor weakness, Psych: cooperative, euthymic mood, judgment and insight is intact - Labs CBC & Chem 7: 01/04/25 02:52 01/04/25 02:52 Labs: Abnormal Lab Results - Last 24 Hours (Table) 01/04/25 01/04/25 Range/Units 02:52 02:52 WBC 12.73 H (4.50-10.00) X 10*3/uL MPV 8.9 L (9.5-12.2) FL Immature Gran # 0.33 H (0.00-0.04) X 10*3/uL Neutrophils # 9.98 H (1.80-7.70) X 10*3/uL Calcium 8.4 L (8.7-10.3) mg/dL Total Protein 5.6 L (6.2-8.2) g/dL Albumin 3.3 L (3.8-4.9) g/dL Albumin/Globulin Ratio 1.43 L (1.60-3.17) Ratio Microbiology - Last 24 Hours (Table) 01/03/25 13:46 Gram Stain - Preliminary Abdomen Wound Culture - Preliminary Assessment and Plan Assessment: Assessment and Plan: Active: Sepsis secondary to acute diverticulitis - GI note reviewed, ID consulted as well - General surgery recommendations apprecaited - Patient is post-op day 1 following exploratory laparotomy and sigmoid colectomy with end colostomy creation - Pain control with IV Dilaudid as needed, also added [place] 5 every 4 hours as needed, monitor for sedation - Continue IV cefepime 2 g IV every 8 hours, IV Flagyl 500 every 8 hours - Patient on clear liquid diet - monitor ostomy output - PT/OT - f/u pathology from sigmoidectomy Hyponatremia, likely hypovolemic, resolving - Continue normal saline 130 cc an hour Chronic: Hypertension DVT ppx: Heparin 5000 unit SQ Q12Hr Code status: Full code Anticipated discharge place: Pending clinical course Anticipated discharge time: pending clinical course Thien Fitzgerald MD PGY-1 TY Dictation was produced using [employer] dictation software. please excuse any grammatical, word or spelling errors. Reza confidentiality statement: "The information contained in this communication, including attachments, is confidential, may be privileged, and is intended only for the use of the named recipient(s). Unauthorized use, disclosure, forwarding or copying is strictly prohibited and may be unlawful. If you have received this communication in error, please notify me IMMEDIATELY at the phone number or pager listed above." I saw and evaluated the patient during the russell and critical portions of this encounter, and discussed the case in detail with the resident author of this note, I agree with the Assessment and Plan, and my changes, if any, are highlighted in blue.
[2025-01-04] MEDS: HEPARIN SODIUM,PORCINE 5,000 UNIT/ML 1 ML VIAL SQ SCH (20:22)
--- NOTE | 2025-01-05 06:11 | P.PN ---
Progress Note - Text 01/05/25 642am 64-year-old male status post exploratory lap. Patient has an epidural catheter for postop pain control with a solution running at 6 cc per hour with a VAS of 3. No motor or sensory deficit noted. Patient got out of his bed yesterday and ambulated. Plan to continue epidural infusion and DC the Catheter tomorrow
[2025-01-05] MEDS: SIMETHICONE 40 MG/0.6 ML DROPS 2,000 MG/30 ML BOTTLE PO PRN (09:29)
[2025-01-05 09:43] LABS: ALT 16 U/L (4-49); AST 24 U/L (17-59); African American GFR (CKD) >90 (>60 ml/min/1.73 sqM); Albumin 3.0 g/dL (3.5-5.0); Albumin/Globulin Ratio 1.1; Alkaline Phosphatase 73 U/L (38-126); Anion Gap 6 mmol/L; Blood Urea Nitrogen 9 mg/dL (9-20); Calcium 8.8 mg/dL (8.4-10.2); Carbon Dioxide 30 mmol/L (22-30); Chloride 95 mmol/L (98-107); Globulin 2.7 g/dL; Glucose 94 mg/dL (74-99); Non-African American GFR(CKD) >90 (>60 ml/min/1.73 sqM); Potassium 4.4 mmol/L (3.5-5.1); Sodium 131 mmol/L (137-145); Total Protein 5.7 g/dL (6.3-8.2)
[2025-01-05] MEDS: METOCLOPRAMIDE 5 MG/ML 2 ML VIAL IVP SCH (11:22)
--- NOTE | 2025-01-05 12:39 | P.PN ---
Subjective Progress Note Date: 01/05/25 Principal diagnosis: Patient doing well today. Pain slightly improved compared to yesterday. Reports that he has not been out of bed or walking since surgery. Objective - Vital Signs Vital signs: Vital Signs Temp 98.5 F 01/05/25 07:25 Pulse 93 01/05/25 07:25 Resp 16 01/05/25 07:25 BP 151/89 01/05/25 07:25 Pulse Ox 92 L 01/05/25 07:25 FiO2 Intake & Output 01/04/25 01/05/25 01/05/25 18:59 06:59 18:59 Intake Total 1601.6 Output Total 2080 690 Balance -478.4 -690 Intake: Intake, IV Titration 161.6 Amount Ropivacaine 250 mg 161.6 Hydromorphone (Pf) 5 mg In Sodium Chloride 0.9% 200 ml @ Per Protocol EPIDURAL .Q0M PRN Rx#: [id number] Oral 1440 Output: Drainage 30 90 Right Abdomen 30 90 Urine 2050 600 Other: Voiding Method Indwelling Catheter # Voids 1 1 - Exam Gen: In NAD, non-toxic HEENT: normocephalic, atraumatic, hearing acuity is intant, mucous membranes moist CVS: perfusing all extremities well, no pitting edema, Respiratory: symmetric chest expansion, no accessory muscle use, GI: soft, Mild tenderness to palpation, ND, Dressings in place over surgical incisions. Colostomy bag in place with a small amount of blood collected similar to exam yesterday. Surgical drain continuing to collect serosanguineous fluid. 90 mL output today. : no suprapubic tenderness, no CVA tenderness MSK/Derm: no rashes, cyanosis Neuro: CN II-XII intact, no motor weakness, Psych: cooperative, euthymic mood, judgment and insight is intact - Labs CBC & Chem 7: 01/05/25 08:53 01/05/25 08:53 Labs: Abnormal Lab Results - Last 24 Hours (Table) 01/05/25 Range/Units 08:53 Sodium 131 L (137-145) mmol/L Chloride 95 L (98-107) mmol/L Creatinine 0.59 L (0.66-1.25) mg/dL Total Protein 5.7 L (6.3-8.2) g/dL Albumin 3.0 L (3.5-5.0) g/dL Microbiology - Last 24 Hours (Table) 01/03/25 13:46 Gram Stain - Preliminary Abdomen Wound Culture - Preliminary Assessment and Plan Assessment: Data reviewed today: WBC 15.84, sodium 131, creatinine 0.59 Assessment and Plan: Active: Sepsis secondary to acute diverticulitis - GI and ID following - General surgery recommendations apprecaited - Patient is post-op day 2 following exploratory laparotomy and sigmoid colectomy with end colostomy creation - Pain control with IV Dilaudid as needed, also added [place] 5 every 4 hours as needed, monitor for sedation. Epidural to be removed tomorrow. - Discontinued Cefepime per cx results, started Ceftriaxone 2g IVPB Q24Hr, IV Flagyl 500 every 8 hours - Patient on clear liquid diet. - Continue to monitor ostomy output and drain output. - PT/OT if patient unable to ambulate today. - Hyman catheter can be d/c if patient is able to ambulate to restroom. - f/u pathology from sigmoidectomy - Patient continued on home balsalazide 0.25 g twice daily - Also started on Reglan 10 mg IV every 6 hours General Surgery Hyponatremia, likely hypovolemic, resolving - Increased normal saline to 150 cc an hour, recheck BMP scheduled for 16:00. Chronic: Hypertension -Continue home amlodipine, losartan DVT ppx: Heparin 5000 unit SQ Q12Hr Code status: Full code Anticipated discharge place: Pending clinical course Anticipated discharge time: pending clinical course Thien Fitzgerald MD PGY-1 TY Dictation was produced using [employer] dictation software. please excuse any grammatical, word or spelling errors. Reza confidentiality statement: "The information contained in this communication, including attachments, is confidential, may be privileged, and is intended only for the use of the named recipient(s). Unauthorized use, disclosure, forwarding or copying is strictly prohibited and may be unlawful. If you have received this communication in error, please notify me IMMEDIATELY at the phone number or pager listed above." I have seen and evaluated the patient today. Discussed with the resident and agree with the residents finding and plan as documented in the resident's note. Changes highlighted in blue font.
--- NOTE | 2025-01-05 13:09 | P.PN ---
Subjective Progress Note Date: 01/05/25 SURGICAL PROGRESS NOTE CHIEF COMPLAINT: Diverticulitis HISTORY OF PRESENT ILLNESS: Postop day #2 status post exploratory laparotomy sigmoid colectomy with end colostomy creation. Patient has epidural in place. Pain is controlled. Denies any nausea or vomiting. Does report heartburn and hiccups. Patient started on Mylicon gas drops with some improvement in hiccups and acid reflux. Afebrile. YENNY drain 90 mL serosanguineous output PHYSICAL EXAM: VITAL SIGNS: Reviewed. GENERAL: Well-developed in no acute distress. ABDOMEN: Soft. Nondistended. Tenderness at incision site. Incisional dressi ng clean dry and intact YENNY drain serosanguineous output NEUROLOGIC: Alert and oriented. Cranial nerves II through XII grossly intact. ASSESSMENT: 1. Perforated diverticulitis with abscess PLAN: -Epidural and Hyman catheter to be discontinued tomorrow -Mylicon gas drops added for gas pain -Add Reglan scheduled -Continue PPI -Go slow with the clear liquids. Continue Ensure protein drinks -Antibiotics per ID service -Encourage patient to increase activity level -Encourage patient to use incentive spirometer - Continue IV fluids - GI prophylaxis Protonix and DVT prophylaxis subcu heparin Physician Breastfeeding Peer Counselor note has been reviewed by physician. Signing provider agrees with the documented findings, assessment, and plan of care. Attestation Patient seen and examined at bedside on 01-28. Postoperative day 2, exploratory laparotomy, sigmoid colectomy with end colostomy creation. YENNY with serosanguineous output. Epidural in place. No ostomy function as of yet. Patient complaining of hiccups and did start simethicone gas drops with some improvement. Patient does feel to have reflux. We will add Reglan and continue his PPI. Continue clear liquid diet as tolerated. Continue to increase activity level. Continue Hyman catheter while epidural is in place. Meg Harris DO Objective - Vital Signs Vital signs: Vital Signs Temp 98.5 F 01/05/25 07: Pulse 93 01/05/25 07:25 Resp 16 01/05/25 07:25 BP 151/89 01/05/25 07:25 Pulse Ox 92 L 01/05/25 07:25 FiO2 Intake & Output 01/04/25 01/05/25 01/05/25 18:59 06:59 18:59 Intake Total 1601.6 Output Total 2080 690 Balance -478.4 -690 Intake: Intake, IV Titration 161.6 Amount Ropivacaine 250 mg 161.6 Hydromorphone (Pf) 5 mg In Sodium Chloride 0.9% 200 ml @ Per Protocol EPIDURAL .Q0M PRN Rx#: [id number] Oral 1440 Output: Drainage 30 90 Right Abdomen 30 90 Urine 2050 600 Other: Voiding Method Indwelling Catheter # Voids 1 1 - Labs CBC & Chem 7: 01/06/25 02:48 01/06/25 02:48 Labs: Abnormal Lab Results - Last 24 Hours (Table) 01/05/25 Range/Units 08:53 Sodium 131 L (137-145) mmol/L Chloride 95 L (98-107) mmol/L Creatinine 0.59 L (0.66-1.25) mg/dL Total Protein 5.7 L (6.3-8.2) g/dL Albumin 3.0 L (3.5-5.0) g/dL Microbiology - Last 24 Hours (Table) 01/03/25 13:46 Gram Stain - Preliminary Abdomen Wound Culture - Preliminary
[2025-01-05 15:17] LABS: Basophils # (A) 0.10 X 10*3/uL (0.00-0.10); Basophils % (A) 0.6 %; Eosinophils # (A) 0.23 X 10*3/uL (0.04-0.35); Eosinophils % (A) 1.5 %; HCT 44.1 % (39.6-50.0); HGB 14.2 g/dL (13.0-17.0); Immature Grans, Automated 3.00 %; Lymphocytes # (A) 0.75 X 10*3/uL (0.90-5.00); Lymphocytes % (A) 4.7 %; MCH 29.7 pg (27.0-32.0); MCHC 32.2 g/dL (32.0-37.0); MCV 92.3 FL (80.0-97.0); Monocytes # (A) 0.89 X 10*3/uL (0.20-1.00); Monocytes % (A) 5.6 %; NRBC Per 100 WBC 0 X 10*3/uL (0.00-0.01); Neutrophils # (A) 13.39 X 10*3/uL (1.80-7.70); Neutrophils % (A) 84.6 %; Platelet Count 308 X 10*3/uL (140-440); RBC 4.78 X 10*6/uL (4.40-5.60); RDW 12.2 % (11.5-14.5); WBC 15.84 X 10*3/uL (4.50-10.00)
[2025-01-05 16:19] LABS: African American GFR (CKD) >90 (>60 ml/min/1.73 sqM); Anion Gap 9 mmol/L; Blood Urea Nitrogen 8 mg/dL (9-20); Calcium 8.5 mg/dL (8.4-10.2); Carbon Dioxide 23 mmol/L (22-30); Chloride 99 mmol/L (98-107); Glucose 105 mg/dL (74-99); Non-African American GFR(CKD) >90 (>60 ml/min/1.73 sqM); Potassium 4.4 mmol/L (3.5-5.1); Sodium 131 mmol/L (137-145)
[2025-01-05] MEDS: ONDANSETRON 4 MG/2 ML VIAL IVP PRN (18:05)
[2025-01-05] MEDS: PROMETHAZINE 25 MG TAB PO ONE (22:07)
--- NOTE | 2025-01-05 22:24 | P.PN ---
Subjective Progress Note Date: 01/05/25 Principal diagnosis: Reason for follow-up diverticulitis/intra-abdominal abscess Patient is a 64-year male past medical history of hypertension diverticulitis admitted to the hospital with worsening diverticulitis failing outpatient oral Levaquin therapy seem to have not responded to the IV Levaquin and Flagyl as the patient had worsening diverticulitis and abscess formation on the CT prompted this consultation. Patient is status post laparotomy sigmoid colectomy diverting colostomy and drainage of the abscess procedure completed on 01/03/2025. On today's evaluation that is 01/05/2025,the patient denies any fever or any chills, patient is breathing comfortably on room air, the patient denies chest pain shortness of breath and no significant cough, patient abdominal pain is currently controlled denies having any nausea no output in the colostomy bag. Patient did have creatinine 0.51 no CBC was done today abdominal cultures currently pending Objective - Vital Signs Vital signs: Vital Signs Temp 98.5 F 01/05/25 07:25 Pulse 93 01/05/25 07:25 Resp 16 01/05/25 07:25 BP 151/89 01/05/25 07:25 Pulse Ox 92 L 01/05/25 07:25 FiO2 Intake & Output 01/04/25 01/05/25 01/05/25 18:59 06:59 18:59 Intake Total 1601.6 Output Total 2080 690 Balance -478.4 -690 Intake: Intake, IV Titration 161.6 Amount Ropivacaine 250 mg 161.6 Hydromorphone (Pf) 5 mg In Sodium Chloride 0.9% 200 ml @ Per Protocol EPIDURAL .Q0M PRN Rx#: [id number] Oral 1440 Output: Drainage 30 90 Right Abdomen 30 90 Urine 2050 600 Other: Voiding Method Indwelling Catheter # Voids 1 1 - Exam GENERAL DESCRIPTION: Middle-age male lying in bed in no distress RESPIRATORY SYSTEM: Unlabored breathing , decreased breath sounds at bases HEART: S1 S2 regular rate and rhythm , ABDOMEN: Soft , no tenderness EXTREMITIES: No edema feet - Labs CBC & Chem 7: 01/05/25 08:53 01/05/25 15:44 Labs: Abnormal Lab Results - Last 24 Hours (Table) 01/05/25 Range/Units 08:53 Sodium 131 L (137-145) mmol/L Chloride 95 L (98-107) mmol/L Creatinine 0.59 L (0.66-1.25) mg/dL Total Protein 5.7 L (6.3-8.2) g/dL Albumin 3.0 L (3.5-5.0) g/dL Microbiology - Last 24 Hours (Table) 01/03/25 13:46 Gram Stain - Preliminary Abdomen Wound Culture - Preliminary Assessment and Plan (1) Perforation of sigmoid colon due to diverticulitis Current Visit: Yes Status: Acute Code(s): K57.20 - DVTRCLI OF LG INT W PERFORATION AND ABSCESS W/O BLEEDING SNOMED Code(s): 3690957482495883 (2) Leukocytosis Current Visit: Yes Status: Acute Code(s): D72.829 - ELEVATED WHITE BLOOD CELL COUNT, UNSPECIFIED SNOMED Code(s): 101402764 (3) Allergy to multiple antibiotics Current Visit: Yes Status: Acute Code(s): Z88.1 - ALLERGY STATUS TO OTHER ANTIBIOTIC AGENTS SNOMED Code(s): 843128976 Plan: 1patient presented to hospital with abdominal pain and this patient has been diagnosed with diverticulitis failing outpatient oral Levaquin therapy now seem to be have not responded very well to the IV Levaquin as well as oral Flagyl as the patient did have evidence of worsening diverticulitis/abscess 2patient with multiple antibiotic ALLERGIES that would limit the number of antibiotic safe to use 3patient repeat CT abdominal pelvis did show some worsening findings and patient status post laparotomy sigmoid colectomy drainage of the abscess and end colostomy 4patient is afebrile there was no CBC done today white count was elevated yesterday abdominal cultures are still pending, patient cefepime has been discontinued and started on Rocephin per admitting team with the admitting team managing patient antibiotics there is no need for ID service to follow this patient ID service will sign off Dictation was produced using [employer] dictation software. please excuse any grammatical, word or spelling errors. Time with Patient: Less than 30
[2025-01-06 03:30] LABS: Basophils # (A) 0.05 10*3/uL (0.00-0.10); Basophils % (A) 0.2 %; Eosinophils # (A) 0.00 10*3/uL (0.04-0.35); Eosinophils % (A) 0.0 %; HCT 42.4 % (39.6-50.0); HGB 14.5 g/dL (13.0-17.0); Lymphocytes # (A) 0.43 10*3/uL (0.90-5.00); Lymphocytes % (A) 2.1 %; MCH 30.3 pg (27.0-32.0); MCHC 34.2 g/dL (32.0-37.0); MCV 88.7 fL (80.0-97.0); Monocytes # (A) 0.44 10*3/uL (0.20-1.00); Monocytes % (A) 2.1 %; Neutrophils # (A) 19.43 10*3/uL (1.80-7.70); Neutrophils % (A) 93.5 %; Platelet Count 278 10*3/uL (140-440); RBC 4.78 10*6/uL (4.40-5.60); RDW 11.9 % (11.5-14.5); WBC 20.78 10*3/uL (4.50-10.00)
[2025-01-06 04:16] LABS: ALT 15 U/L (4-49); AST 22 U/L (17-59); African American GFR (CKD) >90 (>60 ml/min/1.73 sqM); Albumin 3.1 g/dL (3.5-5.0); Albumin/Globulin Ratio 1.2; Alkaline Phosphatase 72 U/L (38-126); Anion Gap 11 mmol/L; Blood Urea Nitrogen 10 mg/dL (9-20); Calcium 8.8 mg/dL (8.4-10.2); Carbon Dioxide 24 mmol/L (22-30); Chloride 96 mmol/L (98-107); Globulin 2.6 g/dL; Glucose 116 mg/dL (74-99); Non-African American GFR(CKD) >90 (>60 ml/min/1.73 sqM); Potassium 4.2 mmol/L (3.5-5.1); Sodium 131 mmol/L (137-145); Total Protein 5.7 g/dL (6.3-8.2)
[2025-01-06] MEDS: ONDANSETRON 4 MG/2 ML VIAL IVP SCH (05:20)
[2025-01-06] MEDS: PROCHLORPERAZINE INJ 10 MG/2 ML VIAL IVP PRN (08:28)
--- NOTE | 2025-01-06 12:14 | XR ---
EXAMINATION TYPE: XR chest 1V DATE OF EXAM: 01/06/2025 12:06 PM COMPARISON: None. CLINICAL INDICATION: Male, 64 years old with history of NG tube placement, TECHNIQUE: XR chest 1V views of the chest are obtained. FINDINGS: NG tube is seen coiling in the stomach. Demonstrated are scattered senescent parenchymal change. There is no evidence for focal infiltrate. The heart is stable. Hilar and mediastinal structures are within normal limits. Degenerative changes are seen of the dorsal spine. IMPRESSION: 1. Chronic changes without evidence for acute pulmonary disease. [facility], , 01/06/2025 12:12 PM
--- NOTE | 2025-01-06 12:18 | XR ---
EXAMINATION TYPE: XR KUB DATE OF EXAM: 01/06/2025 12:06 PM COMPARISON: None. CLINICAL INDICATION: Male, 64 years old with history of intractable vomiting, abdominal pain, rule ou t SBO, TECHNIQUE: Single view of the abdomen. FINDINGS: NG tube is seen within the stomach. Dilated small bowel up to 4.9 cm. Gas and fecal material is seen in non-distended colon. No convincing evidence for pneumoperitoneum. No unusual calcifications. The lung bases are clear. The osseous structures are intact. IMPRESSION: 1. NG tube is seen within the stomach. Dilated small bowel up to 4.9 cm [facility], , 01/06/2025 12:15 PM
--- NOTE | 2025-01-06 12:47 | P.PN ---
Subjective Progress Note Date: 01/06/25 SURGICAL PROGRESS NOTE CHIEF COMPLAINT: Diverticulitis HISTORY OF PRESENT ILLNESS: Postop day #3 status post exploratory laparotomy sigmoid colectomy with end colostomy creation. Patient had multiple episodes of vomiting yesterday. Patient felt that the Reglan caused him to vomit. Reglan was discontinued. He does complain of reflux. He does have some increased abdominal pain with the vomiting. He is nauseated this morning. No output from the ostomy. YENNY drain 50 mL serosanguineous output. Afebrile. WBC is up from 15-20 Hgb 14.5 PHYSICAL EXAM: VITAL SIGNS: Reviewed. GENERAL: Well-developed in no acute distress. ABDOMEN: Soft. Nondistended. Tenderness at incision site. Incisional d ressing clean dry and intact. YENNY drain serosanguineous output NEUROLOGIC: Alert and oriented. Cranial nerves II through XII grossly intact. ASSESSMENT: 1. Perforated diverticulitis with abscess 2. Ileus. Abdominal x-ray reported dilated small bowel measuring up to 4.9 cm. PLAN: -Epidural and Hyman catheter to be discontinued today -Reglan discontinued due to worsening vomiting -Continue Compazine and Zofran. Protonix switched to IV twice a day -Encourage patient to ambulate -NG tube ordered for decompression for ileus -Downgrade diet to n.p.o. -IV Dilaudid as needed for pain control -Repeat CBC to continue monitoring for the leukocytosis -Continue antibiotics per ID service -Continue Mylicon gas drops -Encourage patient to increase activity level -Encourage patient to use incentive spirometer - Continue IV fluids - GI prophylaxis Protonix and DVT prophylaxis subcu heparin Physician Vamp Liner note has been reviewed by physician. Signing provider agrees with the documented findings, assessment, and plan of care. Objective - Vital Signs Vital signs: Vital Signs Temp 98.2 F 01/06/25 07:08 Pulse 71 01/06/25 07:08 Resp 20 01/06/25 07:08 BP 124/72 01/06/25 07:08 Pulse Ox 90 L 01/06/25 07:08 FiO2 Intake & Output 01/05/25 01/06/25 01/06/25 18:59 06:59 18:59 Output Total 2440 900 Balance -2440 -900 Weight 95.708 kg Output: Drainage 140 50 Right Abdomen 140 50 Urine 2300 850 Other: Voiding Method Indwelling Catheter Indwelling Catheter - Labs CBC & Chem 7: 01/06/25 02:48 01/06/25 02:48 Labs: Abnormal Lab Results - Last 24 Hours (Table) 01/05/25 01/05/25 01/06/25 Range/Units 08:53 15:44 02:48 WBC 15.84 H 20.78 H (4.50-10.00) X 10*3/uL MPV 9.0 L 8.6 L (9.5-12.2) FL Immature Gran # 0.48 H 0.43 H (0.00-0.04) X 10*3/uL Neutrophils # 13.39 H 19.43 H (1.80-7.70) X 10*3/uL Lymphocytes # 0.75 L 0.43 L (0.90-5.00) X 10*3/uL Eosinophils # 0.00 L (0.04-0.35) 10*3/uL Sodium 131 L (137-145) mmol/L Chloride (98-107) mmol/L BUN 8 L (9-20) mg/dL Creatinine 0.51 L (0.66-1.25) mg/dL Glucose 105 H (74-99) mg/dL Total Protein (6.3-8.2) g/dL Albumin (3.5-5.0) g/dL 01/06/25 Range/Units 02:48 WBC (4.50-10.00) X 10*3/uL MPV (9.5-12.2) FL Immature Gran # (0.00-0.04) X 10*3/uL Neutrophils # (1.80-7.70) X 10*3/uL Lymphocytes # (0.90-5.00) X 10*3/uL Eosinophils # (0.04-0.35) 10*3/uL Sodium 131 L (137-145) mmol/L Chloride 96 L (98-107) mmol/L BUN (9-20) mg/dL Creatinine 0.45 L (0.66-1.25) mg/dL Glucose 116 H (74-99) mg/dL Total Protein 5.7 L (6.3-8.2) g/dL Albumin 3.1 L (3.5-5.0) g/dL Microbiology - Last 24 Hours (Table) 01/03/25 13:46 Anaerobic Culture - Preliminary Abdomen 01/03/25 13:46 Gram Stain - Preliminary Abdomen Wound Culture - Preliminary
[2025-01-06] MEDS: BENZOCAINE SPRAY 1 EACH MUCOUS MEM PRN (13:12)
--- NOTE | 2025-01-06 14:09 | P.PN ---
Subjective Progress Note Date: 01/06/25 Principal diagnosis: Overnight the patient had several episodes of nausea and vomiting. Medications did not help much and he remained nauseous when I saw him in the morning. Antwan johnson's pain is similar to yesterday. When asked if he has been up and moving around the patient stated that he sat up in his chair yesterday for a few hours but he has not been walking around and continued to lie in bed when he became nauseous. Objective - Vital Signs Vital signs: Vital Signs Temp 98.2 F 01/06/25 07:08 Pulse 71 01/06/25 07:08 Resp 20 01/06/25 07:08 BP 124/72 01/06/25 07:08 Pulse Ox 90 L 01/06/25 07:08 FiO2 Intake & Output 01/05/25 01/06/25 01/06/25 18:59 06:59 18:59 Output Total 2440 900 Balance -2440 -900 Weight 95.708 kg Output: Drainage 140 50 Right Abdomen 140 50 Urine 2300 850 Other: Voiding Method Indwelling Catheter Indwelling Catheter - Exam Gen: Patient in mild distress. Hiccuping on exam. HEENT: normocephalic, atraumatic, hearing acuity is intant, mucous membranes moist CVS: perfusing all extremities well, no pitting edema, Respiratory: symmetric chest expansion, no accessory muscle use, GI: soft, Mild tenderness to palpation, ND, Dressings in place over surgical incisions. Colostomy bag in place with a small amount of blood collected similar to exam yesterday. No gas present. Surgical drain continuing to collect serosanguineous fluid. : no suprapubic tenderness, no CVA tenderness MSK/Derm: no rashes, cyanosis Neuro: CN II-XII intact, no motor weakness, Psych: cooperative, euthymic mood, judgment and insight is intact - Labs CBC & Chem 7: 01/06/25 02:48 01/06/25 02:48 Labs: Abnormal Lab Results - Last 24 Hours (Table) 01/05/25 01/05/25 01/06/25 Range/Units 08:53 15:44 02:48 WBC 15.84 H 20.78 H (4.50-10.00) X 10*3/uL MPV 9.0 L 8.6 L (9.5-12.2) FL Immature Gran # 0.48 H 0.43 H (0.00-0.04) X 10*3/uL Neutrophils # 13.39 H 19.43 H (1.80-7.70) X 10*3/uL Lymphocytes # 0.75 L 0.43 L (0.90-5.00) X 10*3/uL Eosinophils # 0.00 L (0.04-0.35) 10*3/uL Sodium 131 L (137-145) mmol/L Chloride (98-107) mmol/L BUN 8 L (9-20) mg/dL Creatinine 0.51 L (0.66-1.25) mg/dL Glucose 105 H (74-99) mg/dL Total Protein (6.3-8.2) g/dL Albumin (3.5-5.0) g/dL 01/06/25 Range/Units 02:48 WBC (4.50-10.00) X 10*3/uL MPV (9.5-12.2) FL Immature Gran # (0.00-0.04) X 10*3/uL Neutrophils # (1.80-7.70) X 10*3/uL Lymphocytes # (0.90-5.00) X 10*3/uL Eosinophils # (0.04-0.35) 10*3/uL Sodium 131 L (137-145) mmol/L Chloride 96 L (98-107) mmol/L BUN (9-20) mg/dL Creatinine 0.45 L (0.66-1.25) mg/dL Glucose 116 H (74-99) mg/dL Total Protein 5.7 L (6.3-8.2) g/dL Albumin 3.1 L (3.5-5.0) g/dL Microbiology - Last 24 Hours (Table) 01/03/25 13:46 Anaerobic Culture - Preliminary Abdomen 01/03/25 13:46 Gram Stain - Preliminary Abdomen Wound Culture - Preliminary Assessment and Plan Assessment: Data reviewed today: WBC 20.78, sodium 131, creatinine 0.45 Assessment and Plan: Active: Sepsis secondary to acute diverticulitis Post-op day 3 following exploratory laparotomy and sigmoid colectomy with end colostomy creation Postop ileus - ID signed off 01/06/2025 - Patient was given Zofran and Compazine for nausea without much improvement. Reglan was discontinued because patient did not tolerate it well. - General surgery following. NG tube placed on 01/06/2025 due to nausea and vomiting. Protonix switched to IV twice a day. Ordered Mylicon gas drops. - KUB on 01/06/2025 showed NG tube within the stomach and dilated small bowel up to 4.9 cm but was negative for pneumoperitoneum. - Pain control with IV Dilaudid as needed, also added [place] 5 every 4 hours as needed, monitor for sedation. Epidural to be removed. - Continue Ceftriaxone 2g IVPB Q24Hr, IV Flagyl 500 every 8 hours - Continue to monitor ostomy output, drain output, and NG tube output. - Hyman catheter currently in place as patient has been unable to ambulate to restroom - f/u pathology from sigmoidectomy - Patient continued on home balsalazide 2.25 g twice daily Hyponatremia, likely hypovolemic, resolving - Increased normal saline to 200 cc an hour, repeat BMP scheduled for 01/07/2025 at 6:00am. Chronic: Hypertension -Continue home amlodipine, losartan DVT ppx: Heparin 5000 unit SQ Q12Hr Code status: Full code Anticipated discharge place: Pending clinical course Anticipated discharge time: pending clinical course Thien Fitzgerald MD PGY-1 TY Dictation was produced using [employer] dictation software. please excuse any grammatical, word or spelling errors. I have seen and evaluated the patient today. Discussed with the resident and agree with the residents finding and plan as documented in the resident's note. Changes highlighted in blue font.
--- NOTE | 2025-01-06 14:47 | P.PN ---
Progress Note - Text Progress Note Date: 01/06/25 Anesthesia Postop day 1 Status post exploratory laparotomy with epidural day for Patient seen and examined. Doing well vomiting this morning. NG tube in place. VAS 2 out of 10. No nausea vomiting or pruritus. Ropivacaine0.1% with Dilaudid 20 mcg/mL at 0cc an hour. Currently held for epidural pull. Objective: Vital signs reviewed Lungs: Good chest excursion Abdomen: Appears nondistended Other: Epidural Site Intact without induration. Dressing intact Neuro: No apparent motor block. Sensory within normal limits. Assessment: Status post exploratory laparotomy postop day 1 Plan: Continue current care with your medical management. Anticipate discontinue catheter. Orders written.
[2025-01-06 18:50] LABS: Glucose,Whole Blood 96 mg/dL (70-110)
[2025-01-06] MEDS: PANTOPRAZOLE 40 MG/10 ML VIAL IVP SCH (20:01)
[2025-01-07 05:11] LABS: Basophils # (A) 0.04 10*3/uL (0.00-0.10); Basophils % (A) 0.3 %; Eosinophils # (A) 0.43 10*3/uL (0.04-0.35); Eosinophils % (A) 3.1 %; HCT 38.8 % (39.6-50.0); HGB 12.9 g/dL (13.0-17.0); Lymphocytes # (A) 1.15 10*3/uL (0.90-5.00); Lymphocytes % (A) 8.2 %; MCH 30.1 pg (27.0-32.0); MCHC 33.2 g/dL (32.0-37.0); MCV 90.4 fL (80.0-97.0); Monocytes # (A) 0.86 10*3/uL (0.20-1.00); Monocytes % (A) 6.2 %; Neutrophils # (A) 11.17 10*3/uL (1.80-7.70); Neutrophils % (A) 80.0 %; Platelet Count 265 10*3/uL (140-440); RBC 4.29 10*6/uL (4.40-5.60); RDW 12.4 % (11.5-14.5); WBC 13.95 10*3/uL (4.50-10.00)
[2025-01-07 05:33] LABS: African American GFR (CKD) >90 (>60 ml/min/1.73 sqM); Anion Gap 8 mmol/L; Blood Urea Nitrogen 12 mg/dL (9-20); Calcium 8.5 mg/dL (8.4-10.2); Carbon Dioxide 27 mmol/L (22-30); Chloride 100 mmol/L (98-107); Glucose 68 mg/dL (74-99); Non-African American GFR(CKD) >90 (>60 ml/min/1.73 sqM); Potassium 3.8 mmol/L (3.5-5.1); Sodium 135 mmol/L (137-145)
--- NOTE | 2025-01-07 07:00 | P.ANPRN ---
Procedure Note - Anesthesia - Epidural/Spinal Epidural Continuous Time Out Performed: Yes Date of Procedure: 01/03/25 Procedure Start Time: 11:17 Procedure Stop Time: 11:23 Location of Patient: PreOp Indication: Acute Post-Operative Pain, Requested by Surgeon Sedation Type: Sedate with meaningful contact maintained Preparation: Sterile Dressing Position: Sitting Catheter: Indwelling Needle Guage: 18 Blood Aspirated: No Pain Paresthesia on Injection Noted: No Events: Other (see comment) (Test dose Xylocaine 1.5% plus epi was given while the epidural catheter with no side effects noted)
--- NOTE | 2025-01-07 11:12 | P.PN ---
Subjective Progress Note Date: 01/07/25 Patient seen and examined at bedside. Nasogastric tube placed yesterday with output of greater than 2 L. Patient states he feels much better. He is a in the halls. No output from ostomy as of yet. Objective - Vital Signs Vital signs: Vital Signs Temp 97.9 F 01/07/25 07:23 Pulse 90 01/07/25 07:23 Resp 17 01/07/25 07:23 BP 137/76 01/07/25 07:23 Pulse Ox 94 L 01/07/25 07:23 FiO2 Intake & Output 01/06/25 01/07/25 01/07/25 18:59 06:59 18:59 Output Total 2430 1115 40 Balance -2430 -1115 -40 Weight 95.708 kg Output: Gastric Drainage 1700 1000 Drainage 30 75 40 Right Abdomen 30 75 40 Urine 700 Uretheral (Hyman) 700 Stool 40 Other: Voiding Method Indwelling Catheter Toilet Toilet # Voids 2 - Constitutional General appearance: Present: cooperative - Respiratory Details: No difficulty with respiration - Gastrointestinal Gastrointestinal Comment(s): Soft, appropriate tenderness, ostomy pink and patent with bowel sweat in bag - Psychiatric Psychiatric: Present: A&O x's 3 - Labs CBC & Chem 7: 01/07/25 03:43 01/07/25 03:43 Labs: Abnormal Lab Results - Last 24 Hours (Table) 01/07/25 01/07/25 Range/Units 03:43 03:43 WBC 13.95 H (4.50-10.00) 10*3/uL RBC 4.29 L (4.40-5.60) 10*6/uL Hgb 12.9 L (13.0-17.0) g/dL Hct 38.8 L (39.6-50.0) % MPV 9.1 L (9.5-12.2) fL Immature Gran # 0.30 H (0.00-0.04) 10*3/uL Neutrophils # 11.17 H (1.80-7.70) 10*3/uL Eosinophils # 0.43 H (0.04-0.35) 10*3/uL Sodium 135 L (137-145) mmol/L Creatinine 0.52 L (0.66-1.25) mg/dL Glucose 68 L (74-99) mg/dL Microbiology - Last 24 Hours (Table) 01/03/25 13:46 Gram Stain - Preliminary Abdomen Wound Culture - Preliminary Assessment and Plan Plan: Postoperative day #4, exploratory laparotomy, sigmoid colectomy with end colostomy creation -Continue nasogastric tube, likely with ileus at this point. -Continue Compazine and Zofran. -Encourage patient to ambulate -Keep n.p.o. -IV Dilaudid as needed for pain control, dosage adjusted and Toradol added -Repeat CBC to continue monitoring for the leukocytosis, leukocytosis decreased today -Continue antibiotics per ID service -Continue Mylicon gas drops -Encourage patient to increase activity level -Encourage patient to use incentive spirometer -IV fluids suggested - GI prophylaxis Protonix and DVT prophylaxis subcu heparin - If no bowel function, we will have to consider parenteral nutrition
[2025-01-07] MEDS: KETOROLAC 15 MG/ML 1 ML VIAL IVP SCH (13:11)
--- NOTE | 2025-01-07 14:34 | P.PN ---
Subjective Progress Note Date: 01/07/25 Principal diagnosis: Patient doing better today. Says the NG tube helped with his nausea significantly. No worsening pain. Mentions he has been up and walking around multiple times since yesterday. Objective - Vital Signs Vital signs: Vital Signs Temp 98.3 F 01/07/25 14:01 Pulse 71 01/07/25 14:01 Resp 18 01/07/25 14:01 BP 140/70 01/07/25 14:01 Pulse Ox 94 L 01/07/25 14:01 FiO2 Intake & Output 01/06/25 01/07/25 01/07/25 18:59 06:59 18:59 Output Total 2430 1115 80 Balance -2430 -1115 -80 Weight 95.708 kg Output: Gastric Drainage 1700 1000 Drainage 30 75 80 Right Abdomen 30 75 80 Urine 700 Uretheral (Hyman) 700 Stool 40 Other: Voiding Method Indwelling Catheter Toilet Toilet # Voids 2 - Exam Gen: Patient in mild distress. Hiccuping on exam. HEENT: normocephalic, atraumatic, hearing acuity is intant, mucous membranes moist CVS: perfusing all extremities well, no pitting edema, Respiratory: symmetric chest expansion, no accessory muscle use, GI: soft, Mild tenderness to palpation, ND, Dressings in place over surgical incisions. Colostomy bag in place with a small amount of blood collected similar to exam yesterday. Patient mentions the bag was emptied once overnight. No gas present. Surgical drain continuing to collect serosanguineous fluid. : no suprapubic tenderness, no CVA tenderness MSK/Derm: no rashes, cyanosis Neuro: CN II-XII intact, no motor weakness, Psych: cooperative, euthymic mood, judgment and insight is intact - Labs CBC & Chem 7: 01/07/25 03:43 01/07/25 03:43 Labs: Abnormal Lab Results - Last 24 Hours (Table) 01/07/25 01/07/25 Range/Units 03:43 03:43 WBC 13.95 H (4.50-10.00) 10*3/uL RBC 4.29 L (4.40-5.60) 10*6/uL Hgb 12.9 L (13.0-17.0) g/dL Hct 38.8 L (39.6-50.0) % MPV 9.1 L (9.5-12.2) fL Immature Gran # 0.30 H (0.00-0.04) 10*3/uL Neutrophils # 11.17 H (1.80-7.70) 10*3/uL Eosinophils # 0.43 H (0.04-0.35) 10*3/uL Sodium 135 L (137-145) mmol/L Creatinine 0.52 L (0.66-1.25) mg/dL Glucose 68 L (74-99) mg/dL Microbiology - Last 24 Hours (Table) 01/03/25 13:46 Gram Stain - Preliminary Abdomen Wound Culture - Preliminary Assessment and Plan Assessment: Assessment: Data reviewed today: WBC 13.95, sodium 135, creatinine 0.52 Assessment and Plan: Active: Sepsis secondary to acute diverticulitis Post-op day 3 following exploratory laparotomy and sigmoid colectomy with end colostomy creation Postop ileus - ID signed off 01/06/2025 - General surgery following. NG tube placed on 01/06/2025 due to nausea and v omiting. Protonix switched to IV twice a day. Ordered Mylicon gas drops. - KUB on 01/06/2025 showed NG tube within the stomach and dilated small bowel up to 4.9 cm but was negative for pneumoperitoneum. - Pain control with IV Dilaudid as needed, also added [place] 5 every 4 hours as needed, surgery added toradol as well. monitor for sedation. Epidural removed. - Continue Ceftriaxone 2g IVPB Q24Hr, IV Flagyl 500 every 8 hours - Continue to monitor ostomy output, drain output, and NG tube output. - Hyman catheter removed as patient is now able to ambulate to restroom - f/u pathology from sigmoidectomy - Patient continued on home balsalazide 2.25 g twice daily Hyponatremia, likely hypovolemic, resolving - Surgery decreased normal saline to 125 cc an hour. Continue to monitor Chronic: Hypertension -Continue home amlodipine, losartan DVT ppx: Heparin 5000 unit SQ Q12Hr Code status: Full code Anticipated discharge place: Pending clinical course Anticipated discharge time: pending clinical course Thien Fitzgerald MD PGY-1 TY Dictation was produced using [employer] dictation software. please excuse any grammatical, word or spelling errors. I have seen and evaluated the patient today. Discussed with the resident and agree with the residents finding and plan as documented in the resident's note. Changes highlighted in blue font.
[2025-01-07] MEDS: HYDROmorphone 0.5 MG/0.5 ML SYRINGE IVP PRN (14:49)
[2025-01-08 04:32] LABS: Basophils # (A) 0.05 10*3/uL (0.00-0.10); Basophils % (A) 0.5 %; Eosinophils # (A) 0.40 10*3/uL (0.04-0.35); Eosinophils % (A) 3.7 %; HCT 37.8 % (39.6-50.0); HGB 12.9 g/dL (13.0-17.0); Lymphocytes # (A) 0.99 10*3/uL (0.90-5.00); Lymphocytes % (A) 9.2 %; MCH 31.1 pg (27.0-32.0); MCHC 34.1 g/dL (32.0-37.0); MCV 91.1 fL (80.0-97.0); Monocytes # (A) 0.65 10*3/uL (0.20-1.00); Monocytes % (A) 6.0 %; Neutrophils # (A) 8.50 10*3/uL (1.80-7.70); Neutrophils % (A) 79.0 %; Platelet Count 261 10*3/uL (140-440); RBC 4.15 10*6/uL (4.40-5.60); RDW 12.2 % (11.5-14.5); WBC 10.76 10*3/uL (4.50-10.00)
[2025-01-08 04:59] LABS: African American GFR (CKD) >90 (>60 ml/min/1.73 sqM); Anion Gap 10 mmol/L; Blood Urea Nitrogen 13 mg/dL (9-20); Calcium 8.7 mg/dL (8.4-10.2); Carbon Dioxide 24 mmol/L (22-30); Chloride 102 mmol/L (98-107); Glucose 63 mg/dL (74-99); Non-African American GFR(CKD) >90 (>60 ml/min/1.73 sqM); Potassium 3.8 mmol/L (3.5-5.1); Sodium 136 mmol/L (137-145)
--- NOTE | 2025-01-08 08:22 | P.PN ---
Subjective Progress Note Date: 01/08/25 Patient seen and examined at bedside. Began having bowel function through the ostomy site. NG tube with continuous high output with overnight shift of 800 cc Objective - Vital Signs Vital signs: Vital Signs Temp 97.9 F 01/08/25 01:44 Pulse 96 01/08/25 01:44 Resp 17 01/08/25 01:44 BP 157/72 01/08/25 01:44 Pulse Ox 93 L 01/08/25 01:44 FiO2 Intake & Output 01/07/25 01/08/25 01/08/25 18:59 06:59 18:59 Output Total 710 910 Balance -710 -910 Output: Gastric Drainage 600 850 Drainage 110 30 Right Abdomen 110 30 Stool 0 30 Other: Voiding Method Toilet Toilet # Voids 4 2 # Bowel Movements 1 - Constitutional General appearance: Present: cooperative - Respiratory Details: No difficulty with respiration - Gastrointestinal Gastrointestinal Comment(s): Midline incision site clean, dry and intact, ostomy pink, patent and functioning - Psychiatric Psychiatric: Present: A&O x's 3 - Labs CBC & Chem 7: 01/08/25 03:40 01/08/25 03:40 Labs: Abnormal Lab Results - Last 24 Hours (Table) 01/08/25 01/08/25 Range/Units 03:40 03:40 WBC 10.76 H (4.50-10.00) 10*3/uL RBC 4.15 L (4.40-5.60) 10*6/uL Hgb 12.9 L (13.0-17.0) g/dL Hct 37.8 L (39.6-50.0) % MPV 8.9 L (9.5-12.2) fL Immature Gran # 0.17 H (0.00-0.04) 10*3/uL Neutrophils # 8.50 H (1.80-7.70) 10*3/uL Eosinophils # 0.40 H (0.04-0.35) 10*3/uL Sodium 136 L (137-145) mmol/L Creatinine 0.53 L (0.66-1.25) mg/dL Glucose 63 L (74-99) mg/dL Microbiology - Last 24 Hours (Table) 01/03/25 13:46 Anaerobic Culture - Final Abdomen 06/30/25 13:46 Gram Stain - Final Abdomen Wound Culture - Final Assessment and Plan Plan: Postoperative day #5, exploratory laparotomy, sigmoid colectomy with end colostomy creation -Clamp nasogastric tube and check residuals in a few hours, ileus appears to be resolving as patient has had bowel function through ostomy at this point -Continue Compazine and Zofran. -Encourage patient to ambulate -Keep n.p.o. for now -Repeat CBC to continue monitoring for the leukocytosis, leukocytosis decreased today -Continue antibiotics per ID service -Continue Mylicon gas drops -Encourage patient to increase activity level -Encourage patient to use incentive spirometer -IV fluids suggested - GI prophylaxis Protonix and DVT prophylaxis subcu heparin
[2025-01-08 11:35] LABS: Glucose,Whole Blood 68 mg/dL (70-110)
[2025-01-08] MEDS: DEXTROSE 5%-0.9% NACL 1,000 ML IV SCH (12:03)
[2025-01-08 12:48] LABS: Glucose,Whole Blood 69 mg/dL (70-110)
[2025-01-08 13:58] LABS: Glucose,Whole Blood 85 mg/dL (70-110)
--- NOTE | 2025-01-08 14:37 | P.PN ---
Subjective Progress Note Date: 01/08/25 Principal diagnosis: Patient reports doing well today. Still ambulating. Reports overnight that stool began passing through ostomy. Denies any new pain or other symptoms. Objective - Vital Signs Vital signs: Vital Signs Temp 97.9 F 01/08/25 01:44 Pulse 94 01/08/25 07:29 Resp 16 01/08/25 07:29 BP 144/80 01/08/25 07:29 Pulse Ox 100 01/08/25 07:29 FiO2 Intake & Output 01/07/25 01/08/25 01/08/25 18:59 06:59 18:59 Output Total 710 910 200 Balance -710 -910 -200 Output: Gastric Drainage 600 850 200 Drainage 110 30 Right Abdomen 110 30 Stool 0 30 Other: Voiding Method Toilet Toilet Toilet # Voids 4 2 # Bowel Movements 1 - Exam Gen: No acute distress, NG tube in place HEENT: normocephalic, atraumatic, hearing acuity is intant, mucous membranes moist CVS: perfusing all extremities well, no pitting edema, Respiratory: symmetric chest expansion, no accessory muscle use, GI: soft, no tenderness to palpation, ND, Dressings in place over surgical incisions. Colostomy bag in place with stool present. Surgical drain continuing to collect serosanguineous fluid. : no suprapubic tenderness, no CVA tenderness MSK/Derm: no rashes, cyanosis Neuro: CN II-XII intact, no motor weakness, Psych: cooperative, euthymic mood, judgment and insight is intact - Labs CBC & Chem 7: 01/08/25 03:40 01/08/25 03:40 Labs: Abnormal Lab Results - Last 24 Hours (Table) 01/08/25 01/08/25 01/08/25 Range/Units 03:40 03:40 11:34 WBC 10.76 H (4.50-10.00) 10*3/uL RBC 4.15 L (4.40-5.60) 10*6/uL Hgb 12.9 L (13.0-17.0) g/dL Hct 37.8 L (39.6-50.0) % MPV 8.9 L (9.5-12.2) fL Immature Gran # 0.17 H (0.00-0.04) 10*3/uL Neutrophils # 8.50 H (1.80-7.70) 10*3/uL Eosinophils # 0.40 H (0.04-0.35) 10*3/uL Sodium 136 L (137-145) mmol/L Creatinine 0.53 L (0.66-1.25) mg/dL Glucose 63 L (74-99) mg/dL POC Glucose (mg/dL) 68 L (70-110) mg/dL 01/08/25 Range/Units 12:46 WBC (4.50-10.00) 10*3/uL RBC (4.40-5.60) 10*6/uL Hgb (13.0-17.0) g/dL Hct (39.6-50.0) % MPV (9.5-12.2) fL Immature Gran # (0.00-0.04) 10*3/uL Neutrophils # (1.80-7.70) 10*3/uL Eosinophils # (0.04-0.35) 10*3/uL Sodium (137-145) mmol/L Creatinine (0.66-1.25) mg/dL Glucose (74-99) mg/dL POC Glucose (mg/dL) 69 L (70-110) mg/dL Microbiology - Last 24 Hours (Table) 01/03/25 13:46 Anaerobic Culture - Final Abdomen 01/03/25 13:46 Gram Stain - Final Abdomen Wound Culture - Final Assessment and Plan Assessment: Data reviewed today: WBC 10.76, sodium 136, creatinine 0.53 Assessment and Plan: Active: Sepsis secondary to acute diverticulitis Post-op day 3 following exploratory laparotomy and sigmoid colectomy with end colostomy creation Postop ileus #ID signed off 01/06/2025 #General surgery following. NG tube placed on 01/06/2025 - GS Clamped NG tube today - Pain control with IV Dilaudid as needed, also added [place] 5 every 4 hours as needed, surgery added toradol as well. monitor for sedation. Epidural removed. - Continue Ceftriaxone 2g IVPB Q24Hr, IV Flagyl 500 every 8 hours - Continue to monitor ostomy output, drain output, and NG tube output. - f/u pathology from sigmoidectomy - Patient continued on home balsalazide 2.25 g twice daily - Patient on Pantoprazole 40mg IV BID per surgery recs Hyponatremia, likely hypovolemic, resolving Hypoglycemia - Changed fluids to D5 NS 125 mL/hr given lower blood sugars today Chronic: Hypertension -Continue home amlodipine, losartan DVT ppx: Heparin 5000 unit SQ Q12Hr Code status: Full code Anticipated discharge place: Pending clinical course Anticipated discharge time: pending clinical course Thien Fitzgerald MD PGY-1 TY Dictation was produced using [employer] dictation software. please excuse any grammatical, word or spelling errors. I have seen and evaluated the patient today. Discussed with the resident and agree with the residents finding and plan as documented in the resident's note. Changes highlighted in blue font.
--- NOTE | 2025-01-09 08:52 | P.PN ---
Subjective Progress Note Date: 01/09/25 Patient seen and examined at bedside. Nasogastric tube was removed yesterday. Patient feeling better. Ostomy appliance has been emptied multiple times with continued output. Objective - Vital Signs Vital signs: Vital Signs Temp 98.1 F 01/09/25 07:15 Pulse 73 01/09/25 07:15 Resp 16 01/09/25 07:15 BP 131/82 01/09/25 07:15 Pulse Ox 95 01/09/25 07:15 FiO2 Intake & Output 01/08/25 01/09/25 01/09/25 18:59 06:59 18:59 Intake Total 1475 Output Total 230 30 Balance -230 1445 Intake: Intake, IV Titration 1475 Amount Dextrose 5%-0.9% NaCl 1, 1375 000 ml @ 125 mls/hr IV . Q8H DAVID Rx#:[id number] metroNIDAZOLE-NS PMX 500 100 mg In Saline 1 100ml.bag @ 100 mls/hr IVPB Q8HR DAVID Rx#:[id number] Output: Gastric Drainage 200 Drainage 30 30 Right Abdomen 30 30 Other: Voiding Method Toilet Toilet # Voids 4 # Bowel Movements 1 2 - Constitutional General appearance: Present: cooperative - Respiratory Details: No difficulty with respiration - Gastrointestinal Gastrointestinal Comment(s): Soft, appropriate tenderness, nondistended, YENNY drain in place, ostomy functional - Psychiatric Psychiatric: Present: A&O x's 3 - Labs CBC & Chem 7: 01/08/25 03:40 01/08/25 03:40 Labs: Abnormal Lab Results - Last 24 Hours (Table) 01/08/25 01/08/25 Range/Units 11:34 12:46 POC Glucose (mg/dL) 68 L 69 L (70-110) mg/dL Assessment and Plan Plan: Postoperative day #6, exploratory laparotomy, sigmoid colectomy with end colostomy creation -Begin clear liquid diet, Ensure clears -Continue Compazine and Zofran. -Encourage patient to ambulate -Repeat CBC to continue monitoring for the leukocytosis, leukocytosis decreased today -Continue antibiotics per ID service -Continue Mylicon gas drops -Encourage patient to increase activity level -Encourage patient to use incentive spirometer - GI prophylaxis Protonix and DVT prophylaxis subcu heparin
[2025-01-09 08:58] LABS: Basophils # (A) 0.04 X 10*3/uL (0.00-0.10); Basophils % (A) 0.3 %; Eosinophils # (A) 0.35 X 10*3/uL (0.04-0.35); Eosinophils % (A) 2.5 %; HCT 38.2 % (39.6-50.0); HGB 12.7 g/dL (13.0-17.0); Immature Grans, Automated 1.20 %; Lymphocytes # (A) 0.75 X 10*3/uL (0.90-5.00); Lymphocytes % (A) 5.5 %; MCH 29.7 pg (27.0-32.0); MCHC 33.2 g/dL (32.0-37.0); MCV 89.5 FL (80.0-97.0); Monocytes # (A) 0.58 X 10*3/uL (0.20-1.00); Monocytes % (A) 4.2 %; NRBC Per 100 WBC 0 X 10*3/uL (0.00-0.01); Neutrophils # (A) 11.84 X 10*3/uL (1.80-7.70); Neutrophils % (A) 86.3 %; Platelet Count 298 X 10*3/uL (140-440); RBC 4.27 X 10*6/uL (4.40-5.60); RDW 12.4 % (11.5-14.5); WBC 13.73 X 10*3/uL (4.50-10.00)
[2025-01-09 09:05] LABS: BUN/Creat Ratio 10.67 Ratio (12.00-20.00); Blood Urea Nitrogen 6.4 mg/dL (9.0-27.0); Chloride 105 mmol/L (96-109); Glucose 119 mg/dL (70-110); Potassium 3.5 mmol/L (3.5-5.5); Sodium 141 mmol/L (135-145)
[2025-01-09 09:06] LABS: ALT 13 U/L (10-49); AST 21 U/L (14-35); Albumin 3.2 g/dL (3.8-4.9); Albumin/Globulin Ratio 1.78 Ratio (1.60-3.17); Alkaline Phosphatase 56 U/L (41-126); Anion Gap 10.70 mmol/L (4.00-12.00); Calcium 8.2 mg/dL (8.7-10.3); Carbon Dioxide 25.3 mmol/L (21.6-31.8); Globulin 1.8 g/dL (1.6-3.3); Total Protein 5.0 g/dL (6.2-8.2)
--- NOTE | 2025-01-09 12:12 | P.PN ---
Subjective Progress Note Date: 01/09/25 Subjective: Patient seen and examined at bedside. No acute events overnight. Now having stool from ostomy. Pertinent positives and negatives as discussed above, a complete review of systems was performed and all other systems are negative. Vitals Signs Reviewed. General: Nontoxic, no distress, appears at stated age Derm: Warm, dry Head: Atraumatic, normocephalic, symmetric Eyes: EOMI, no lid lag, anicteric sclera Mouth: No lip lesion, mucus membranes moist Cardiovascular: S1S2 reg, no murmur Lungs: CTA bilateral, no rhonchi, no rales, no accessory muscle use Abdominal: Soft, nontender to palpation, no guarding, no appreciable organomegaly, stool present in the ostomy bag Ext: No gross muscle atrophy, no edema, no contractures Neuro: CN II-XI grossly intact, no focal neuro deficits Psych: Alert, oriented, appropriate affect Data Reviewed Today: Pertinent Labs: WBC 13.73, hemoglobin 12.7, platelet 298, potassium 3.5, sodium 141, creatinine 0.6, blood sugars range between 85-1 19 Imaging: No new imaging Assessment and Plan: Active: Acute diverticulitis status post ex lap, sigmoid colectomy with end colostomy creation Sepsis, resolved Leukocytosis, reactive - Surgery note reviewed, started on clear liquid diet - Continue D5 normal saline at 125 cc an hour, discontinue once oral intake improves - Continue IV Flagyl 500 every 8 hours, IV ceftriaxone 2 g every 8 hours, will de-escalate to oral antibiotics at the time of discharge - ID signed off - Continue balsalazide 2.25 g twice daily - Pain control with IV Toradol every 6 hours, [place] as needed, IV Dilaudid as ne eded, monitor for sedation - Continue IV pantoprazole 40 twice daily - Zofran or Compazine for nausea vomiting - Continue Mylicon drops Chronic: Hypertension GERD DVT ppx: Subcu hep Code status: Full code Anticipated discharge place: Home Anticipated discharge time: Likely tomorrow Objective - Vital Signs Vital signs: Vital Signs Temp 98.1 F 01/09/25 07:15 Pulse 73 01/09/25 07:15 Resp 16 01/09/25 07:15 BP 131/82 01/09/25 07:15 Pulse Ox 95 01/09/25 07:15 FiO2 Intake & Output 01/08/25 01/09/25 01/09/25 18:59 06:59 18:59 Intake Total 1475 Output Total 230 30 40 Balance -230 1445 -40 Intake: Intake, IV Titration 1475 Amount Dextrose 5%-0.9% NaCl 1, 1375 000 ml @ 125 mls/hr IV . Q8H DAVID Rx#:[id number] metroNIDAZOLE-NS PMX 500 100 mg In Saline 1 100ml.bag @ 100 mls/hr IVPB Q8HR DAVID Rx#:[id number] Output: Gastric Drainage 200 Drainage 30 30 40 Right Abdomen 30 30 40 Other: Voiding Method Toilet Toilet Toilet # Voids 4 # Bowel Movements 1 2 1 - Labs CBC & Chem 7: 01/09/25 05:28 01/09/25 05:28 Labs: Abnormal Lab Results - Last 24 Hours (Table) 01/08/25 01/09/25 01/09/25 Range/Units 12:46 05:28 05:28 WBC 13.73 H (4.50-10.00) X 10*3/uL RBC 4.27 L (4.40-5.60) X 10*6/uL Hgb 12.7 L (13.0-17.0) g/dL Hct 38.2 L (39.6-50.0) % MPV 9.2 L (9.5-12.2) FL Immature Gran # 0.17 H (0.00-0.04) X 10*3/uL Neutrophils # 11.84 H (1.80-7.70) X 10*3/uL Lymphocytes # 0.75 L (0.90-5.00) X 10*3/uL BUN 6.4 L (9.0-27.0) mg/dL BUN/Creatinine Ratio 10.67 L (12.00-20.00) Ratio Glucose 119 H (70-110) mg/dL POC Glucose (mg/dL) 69 L (70-110) mg/dL Calcium 8.2 L (8.7-10.3) mg/dL Total Bilirubin 0.2 L (0.3-1.2) mg/dL Total Protein 5.0 L (6.2-8.2) g/dL Albumin 3.2 L (3.8-4.9) g/dL
[2025-01-10 08:37] LABS: ALT 14 U/L (10-49); AST 21 U/L (14-35); Albumin 3.0 g/dL (3.8-4.9); Albumin/Globulin Ratio 1.43 Ratio (1.60-3.17); Alkaline Phosphatase 50 U/L (41-126); Anion Gap 8.70 mmol/L (4.00-12.00); BUN/Creat Ratio <5.83 Ratio (12.00-20.00); Blood Urea Nitrogen <3.5 mg/dL (9.0-27.0); Calcium 8.1 mg/dL (8.7-10.3); Carbon Dioxide 26.3 mmol/L (21.6-31.8); Chloride 106 mmol/L (96-109); Globulin 2.1 g/dL (1.6-3.3); Glucose 111 mg/dL (70-110); Potassium 3.3 mmol/L (3.5-5.5); Sodium 141 mmol/L (135-145); Total Protein 5.1 g/dL (6.2-8.2)
[2025-01-10 10:44] LABS: Basophils # (A) 0.05 X 10*3/uL (0.00-0.10); Basophils % (A) 0.5 %; Eosinophils # (A) 0.45 X 10*3/uL (0.04-0.35); Eosinophils % (A) 4.2 %; HCT 38.0 % (39.6-50.0); HGB 12.4 g/dL (13.0-17.0); Immature Grans, Automated 1.80 %; Lymphocytes # (A) 1.23 X 10*3/uL (0.90-5.00); Lymphocytes % (A) 11.4 %; MCH 29.9 pg (27.0-32.0); MCHC 32.6 g/dL (32.0-37.0); MCV 91.6 FL (80.0-97.0); Monocytes # (A) 0.59 X 10*3/uL (0.20-1.00); Monocytes % (A) 5.5 %; NRBC Per 100 WBC 0 X 10*3/uL (0.00-0.01); Neutrophils # (A) 8.29 X 10*3/uL (1.80-7.70); Neutrophils % (A) 76.6 %; Platelet Count 293 X 10*3/uL (140-440); RBC 4.15 X 10*6/uL (4.40-5.60); RDW 12.8 % (11.5-14.5); WBC 10.80 X 10*3/uL (4.50-10.00)
--- NOTE | 2025-01-10 14:18 | P.PN ---
Progress Note - Text Progress Note Date: 01/10/25 Patient seen and examined. No acute events overnight. Ostomy is functioning VSS General-NAD CVS-RRR Lungs-NLB Abdomen-soft, NTND, ostomy functioning 64 year old male POD #7, exploratory laparotomy, sigmoid colectomy with end colostomy creation -Advanced to LFD -Pain and Nausea Control -OOB, ambulate, IS -Continue antibiotics per ID service -GI prophylaxis Protonix and DVT prophylaxis subcu heparin -AM labs Cl Kirby DO [facility] [phone]
--- NOTE | 2025-01-10 14:45 | P.PN ---
Subjective Progress Note Date: 01/10/25 Patient denies any new pain or complaints overnight. Does mention feeling a little "off" when he ate breakfast but denies any active nausea or vomiting. NG tube removed. Ambulating well. Objective - Vital Signs Vital signs: Vital Signs Temp 98.2 F 01/10/25 07:44 Pulse 61 01/10/25 07:44 Resp 18 01/10/25 07:44 BP 145/83 01/10/25 07:44 Pulse Ox 97 01/10/25 07:44 FiO2 Intake & Output 01/09/25 01/10/25 01/10/25 18:59 06:59 18:59 Output Total 80 30 100 Balance -80 -30 -100 Output: Drainage 80 30 Right Abdomen 80 30 Stool 100 Other: Voiding Method Toilet Toilet Toilet # Voids 4 1 4 # Bowel Movements 300 - Exam Vitals Signs Reviewed. General: Nontoxic, no distress, appears at stated age Derm: Warm, dry Head: Atraumatic, normocephalic, symmetric Eyes: EOMI, no lid lag, anicteric sclera Mouth: No lip lesion, mucus membranes moist Cardiovascular: S1S2 reg, no murmur Lungs: CTA bilateral, no rhonchi, no rales, no accessory muscle use Abdominal: Soft, nontender to palpation, no guarding, no appreciable organomegaly, stool and gas present in the ostomy bag Ext: No gross muscle atrophy, no edema, no contractures Neuro: CN II-XI grossly intact, no focal neuro deficits Psych: Alert, oriented, appropriate affect - Labs CBC & Chem 7: 01/10/25 02:23 01/10/25 02:23 Labs: Abnormal Lab Results - Last 24 Hours (Table) 01/10/25 01/10/25 Range/Units 02:23 02:23 WBC 10.80 H (4.50-10.00) X 10*3/uL RBC 4.15 L (4.40-5.60) X 10*6/uL Hgb 12.4 L (13.0-17.0) g/dL Hct 38.0 L (39.6-50.0) % Immature Gran # 0.19 H (0.00-0.04) X 10*3/uL Neutrophils # 8.29 H (1.80-7.70) X 10*3/uL Eosinophils # 0.45 H (0.04-0.35) X 10*3/uL Potassium 3.3 L (3.5-5.5) mmol/L BUN <3.5 L (9.0-27.0) mg/dL BUN/Creatinine Ratio <5.83 L (12.00-20.00) Ratio Glucose 111 H (70-110) mg/dL Calcium 8.1 L (8.7-10.3) mg/dL Total Bilirubin 0.2 L (0.3-1.2) mg/dL Total Protein 5.1 L (6.2-8.2) g/dL Albumin 3.0 L (3.8-4.9) g/dL Albumin/Globulin Ratio 1.43 L (1.60-3.17) Ratio Assessment and Plan Assessment: Data reviewed today: WBC:10.80, hemoglobin:12.4, platelet:9.6, potassium: 3.3, sodium: 141, creatinine: 0.6, glucose: 111 Active: Acute diverticulitis status post ex lap, sigmoid colectomy with end colostomy creation Sepsis, resolved Leukocytosis, reactive - Surgery following, NG tube removed. Currently on low fiber diet - Continue D5 normal saline at 125 cc an hour, discontinue once oral intake improves - Continue IV Flagyl 500 every 8 hours, IV ceftriaxone 2 g every 8 hours, will de-escalate to oral antibiotics at the time of discharge - Continue balsalazide 2.25 g twice daily - Pain control with IV Toradol every 6 hours, Corbett as needed, d/c IV Dilaudid. monitor for sedation - Continue IV pantoprazole 40 twice daily - Zofran or Compazine for nausea vomiting - Continue Mylicon drops Hypokalemia - Give potassium 20 mill equivalent oral Chronic: Hypertension GERD DVT ppx: Subcu hep Code status: Full code Anticipated discharge place: Home Anticipated discharge time: Likely tomorrow I have seen and evaluated the patient today. Discussed with the resident and agree with the residents finding and plan as documented in the resident's note. Changes highlighted in blue font.
[2025-01-10] MEDS: POTASSIUM CHLORIDE ER 20 MEQ TAB.ER PO STA (17:23)
[2025-01-11 08:34] VITALS: BP 152/84; PULSE 61; RESP 17; TEMP 98.4
[2025-01-11 08:35] LABS: Basophils # (A) 0.04 X 10*3/uL (0.00-0.10); Basophils % (A) 0.4 %; Eosinophils # (A) 0.56 X 10*3/uL (0.04-0.35); Eosinophils % (A) 6.0 %; HCT 38.6 % (39.6-50.0); HGB 12.7 g/dL (13.0-17.0); Immature Grans, Automated 2.10 %; Lymphocytes # (A) 1.60 X 10*3/uL (0.90-5.00); Lymphocytes % (A) 17.2 %; MCH 30.1 pg (27.0-32.0); MCHC 32.9 g/dL (32.0-37.0); MCV 91.5 FL (80.0-97.0); Monocytes # (A) 0.49 X 10*3/uL (0.20-1.00); Monocytes % (A) 5.3 %; NRBC Per 100 WBC 0 X 10*3/uL (0.00-0.01); Neutrophils # (A) 6.43 X 10*3/uL (1.80-7.70); Neutrophils % (A) 69.0 %; Platelet Count 304 X 10*3/uL (140-440); RBC 4.22 X 10*6/uL (4.40-5.60); RDW 12.9 % (11.5-14.5); WBC 9.32 X 10*3/uL (4.50-10.00)
[2025-01-11 09:15] LABS: Anion Gap 8.80 mmol/L (4.00-12.00); BUN/Creat Ratio 6.71 Ratio (12.00-20.00); Blood Urea Nitrogen 4.7 mg/dL (9.0-27.0); Calcium 8.0 mg/dL (8.7-10.3); Carbon Dioxide 26.2 mmol/L (21.6-31.8); Chloride 103 mmol/L (96-109); Glucose 111 mg/dL (70-110); Potassium 3.3 mmol/L (3.5-5.5); Sodium 138 mmol/L (135-145)
[2025-01-11] MEDS: POTASSIUM CHLORIDE ER 20 MEQ TAB.ER PO STA (10:52)
--- NOTE | 2025-01-11 12:27 | P.PN ---
Subjective Progress Note Date: 01/11/25 Patient seen and examined at bedside. Doing great. Having ostomy output. Tolerating diet. Denies any significant pain. Objective - Vital Signs Vital signs: Vital Signs Temp 98.4 F 01/11/25 07:33 Pulse 61 01/11/25 07:33 Resp 17 01/11/25 07:33 BP 152/84 01/11/25 07:33 Pulse Ox 95 01/11/25 07:33 FiO2 Intake & Output 01/10/25 01/11/25 01/11/25 18:59 06:59 18:59 Intake Total 1000 Output Total 150 300 Balance -150 700 Weight 95.708 kg Intake: Oral 1000 Output: Drainage 50 Right Abdomen 50 Stool 100 300 Other: Voiding Method Toilet # Voids 3 2 # Bowel Movements 1 - Constitutional General appearance: Present: cooperative, no acute distress - Gastrointestinal Gastrointestinal Comment(s): Soft, appropriate tenderness, nondistended, ostomy pink and patent with stool output, YENNY drain in place - Labs CBC & Chem 7: 01/11/25 02:36 01/11/25 02:36 Labs: Abnormal Lab Results - Last 24 Hours (Table) 01/11/25 01/11/25 Range/Units 02:36 02:36 RBC 4.22 L (4.40-5.60) X 10*6/uL Hgb 12.7 L (13.0-17.0) g/dL Hct 38.6 L (39.6-50.0) % Immature Gran # 0.20 H (0.00-0.04) X 10*3/uL Eosinophils # 0.56 H (0.04-0.35) X 10*3/uL Potassium 3.3 L (3.5-5.5) mmol/L BUN 4.7 L (9.0-27.0) mg/dL BUN/Creatinine Ratio 6.71 L (12.00-20.00) Ratio Glucose 111 H (70-110) mg/dL Calcium 8.0 L (8.7-10.3) mg/dL Assessment and Plan Plan: Postoperative day #8, exploratory laparotomy, sigmoid colectomy with end colostomy creation -Diet was discussed with patient -Continue Compazine and Zofran as needed -Encourage patient to ambulate -Surgically stable for discharge -P drain removed at bedside -Continue antibiotics per ID service -Continue Mylicon gas drops -Encourage patient to increase activity level -Encourage patient to use incentive spirometer - GI prophylaxis Protonix and DVT prophylaxis subcu heparin
--- NOTE | 2025-01-11 13:09 | P.DS ---
Providers Date of admission: 12/26/24 04:58 Expected date of discharge: 01/11/25 Attending physician: Anahy Holland MD Consults: 12/26/24 04:55 Consult Physician Routine Consulting Provider: Cl Kirby Consult Reason/Comments: ticitis Do you want consulting provider notified?: Yes 12/30/24 10:21 Consult Physician Urgent Consulting Provider: Drake Luke Consult Reason/Comments: Antibiotic recommendations, diverticulitis with abscess Do you want consulting provider notified?: Yes Primary care physician: Ceferino Gomez MD Hospital Course: Discharge Diagnosis: Acute diverticulitis status post ex lap, sigmoid colectomy with end colostomy creation Sepsis, resolved Leukocytosis, reactive Hyponatremia, resolved Hypokalemia Chronic: Hypertension GERD Hospital Course: Patient is a 64-year-old male with a history of hypertension, cholecystectomy and appendectomy who was admitted on 12/26/2024 for left lower quadrant and suprapubic pain. Initial ct demonstrated complicated acute/subacute sigmoid diverticulitis with contained perforation and increasing size of periaortic fluid collection concerning for abscess versus phlegmon. Probable abscess. Patient met sepsis criteria. Surgery was consulted and antibiotics were given. The patient was initially started on levofloxacin and Flagyl. Followed by cefep pacheco and Flagyl until culture results came back. While admitted on 01/02/2025, repeat CT showed worsening abscess collection and possible fistula. The patient underwent exploratory laparotomy and sigmoid colectomy with end colostomy creation on 01/03/25 complicated by postoperative ileus which required NG tube placement on 01/06/2025 and bowel rest. Patient was then switched to ceftriaxone and Flagyl. The NG tube was removed on 01/09/2025 and the patient tolerated clear liquids followed by low fiber diet well. Surgical specimen showed multiple diverticula and a fibrous wall up to 1.3 cm thick. The wall had a focal ill- defined area indicating a possible site of perforation but no mass was identified. Patient seen and examined at bedside. Vital signs reviewed and stable. Physical examination: Vital signs reviewed General: non toxic, no distress, appears at stated age, normal weight Derm: no unusual rashes/lesions, warm Head: atraumatic, normocephalic, symmetric Eyes: EOMI, anicteric sclera, pupils equal round reactive to light ENT: Nose and ears atraumatic Neck: No cervical lymphadenopathy, trachea midline, supple Mouth: no lip lesion, mucus membranes moist Cardiovascular: S1S2 reg, no murmur, positive dorsalis pedis pulse bilateral, no edema Lungs: CTA bilateral, no rhonchi, no rales, no accessory muscle use Abdominal: soft, nontender to palpation, no guarding. Surgical dressings clean. Colostomy bag in place with stool and gas present. Surgical drain removed. Ext: muscle strength 5 out of 5 in all 4 extremities grossly, no gross muscle atrophy Neuro: CN II-XI grossly intact, no gross focal neuro deficits Psych: Alert, oriented to person, place, and time A total of greater than 30 minutes of time were spent preparing this complex discharge summary. Patient was discharged on 01/11/2025 He was sent home on cefdinir 300 mg Q12Hr and flagyl 500mg TID for 2 days. Ibuprofen and tylenol were recommended for pain control at home. He was also sent home on balsalazide 2250 mg BID, and his home famotidine, amlodipine, and losartan. He was recommended to follow up with his PCP, surgeon, and GI physician. Thien Fitzgerald MD PGY-1 TY Dictation was produced using [employer] dictation software. please excuse any grammatical, word or spelling errors. I have seen and evaluated the patient today. Discussed with the resident and agree with the residents finding and plan as documented in the resident's note. Changes highlighted in blue font. Patient Condition at Discharge: Serious Plan - Discharge Summary Discharge Rx Participant: Yes New Discharge Prescriptions: New Cefdinir 300 mg PO Q12HR #4 cap metroNIDAZOLE [Flagyl] 500 mg PO TID #6 tab Continue amLODIPine [Norvasc] 5 mg PO DAILY Famotidine [Pepcid] 20 mg PO BID-W/MEALS PRN PRN Reason: Heartburn Losartan Potassium [Cozaar] 25 mg PO DAILY Balsalazide Disodium 2,250 mg PO BID Discontinued Levofloxacin [Levaquin] 750 mg PO DAILY #10 tab Dicyclomine [Bentyl] 10 mg PO TID Discharge Medication List Losartan Potassium [Cozaar] 25 mg PO DAILY 08/30/22 [History] Balsalazide Disodium 2,250 mg PO BID 12/26/24 [History] Famotidine [Pepcid] 20 mg PO BID-W/MEALS PRN 12/26/24 [History] amLODIPine [Norvasc] 5 mg PO DAILY 12/26/24 [History] Cefdinir 300 mg PO Q12HR #4 cap 01/11/25 [Rx] metroNIDAZOLE [Flagyl] 500 mg PO TID #6 tab 01/11/25 [Rx] Follow up Appointment(s)/Referral(s): Ceferino Gomez MD [Primary Care Provider] - 01/14/25 12:00 pm Debby Sanchez MD [STAFF PHYSICIAN] - 3 Weeks (office not answering Please call to schedule appointment ) Cl Kirby DO [Medical Doctor] - 01/18/25 10:30 am (with [facility]) [facility] Visiting Nurse, [NON-STAFF] - As Needed Patient Instructions/Handouts: Colostomy Care (DC) Activity/Diet/Wound Care/Special Instructions: Ostomy: [place] #[id number], no sting skin prep applied to any reddened areas. Change every 3 to 5 days and if leaking; empty when no more than half full Last changed: 01/10/25 Over the counter tylenol and ibuprofen for pain. Please see PCP, GI and surgery. Discharge Disposition: HOME WITH HOME HEALTH SERVICES
== END 2025-01-11 14:32 | disposition home health service (06) | DRG 853 ==
LOC: EC 01:54 → 6NMEDSUR 04:57 → OBSVTOIN 04:58 → 6NMEDSUR 06:15 → 1SOBS 12-27 03:17 → 4SSUR 12-30 16:36
PROVIDERS: ADMIT Internal Medicine; ATTEND Internal Medicine
PROC: 0D1M0Z4 Bypass Descending Colon to Cutaneous, Open Approach (ICD-10-PCS; principal; 2025-01-03 12:00)
PROC: 0DTN0ZZ Resection of Sigmoid Colon, Open Approach (ICD-10-PCS; principal; 2025-01-03 12:00)
PROC: 0D9670Z Drainage of Stomach with Drainage Device, Via Natural or Artificial Opening (ICD-10-PCS; 2025-01-06)
DX: A41.9 Sepsis, unspecified organism (principal); K65.1 Peritoneal abscess; K57.20 Diverticulitis of large intestine with perforation and abscess without bleeding; K56.7 Ileus, unspecified; I10 Essential (primary) hypertension; E87.1 Hypo-osmolality and hyponatremia; K91.89 Other postprocedural complications and disorders of digestive system; E87.6 Hypokalemia; K21.9 Gastro-esophageal reflux disease without esophagitis; E86.1 Hypovolemia; K52.89 Other specified noninfective gastroenteritis and colitis; M54.9 Dorsalgia, unspecified; E16.2 Hypoglycemia, unspecified; Z79.899 Other long term (current) drug therapy; Z87.891 Personal history of nicotine dependence; Z88.0 Allergy status to penicillin; Z88.1 Allergy status to other antibiotic agents; Z88.5 Allergy status to narcotic agent; Z88.2 Allergy status to sulfonamides
CPT/HCPCS: 36415; 71045; 74018; 74177; 80048; 80053; 82150; 83605; 83690; 83735; 84100; 85025; 85610; 85652; 86140; 86850; 86900; 86901; 87070; 87075; 87205; 88307; 93005; 94760; 96361; 96365; 96366; 96375; 96376; 99285